=== PATIENT | male | born 2000 | race American Indian/Alaskan Native ===

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

== ENCOUNTER 2018-04-13 12:05 | Emergency (ER) | payer MEDICAID ==
[2018-04-13 12:11] VITALS: BP 142/81
[2018-04-13] MEDS ORDERED: ATROVENT IH ONE (12:16)
[2018-04-13] MEDS ORDERED: PROVENTIL IH ONE (12:16)
[2018-04-13] MEDS ORDERED: NACL 0.9% 1000 ML 1,000 ML IV ONE (12:17)
[2018-04-13] MEDS ORDERED: SOLU-Medrol IV ONE (12:17)
--- NOTE | 2018-04-13 12:19 | Emergency Department Report ---
Chief Complaint: Adult Asthma Stated Complaint: KARAN/ASTHMA Time Seen by Provider: 04/13/18 12:16 - HPI History of Present Illness: 17-year-old -[place] male presents to the emergency department with complaint of a one to 2 day history of progressively worsening shortness of breath, wheezing and dry cough that he thinks his insistent with his asthma. He has been trying to use his inhaler and nebulizer at home without any relief. He also has a history of bipolar disorder and ADHD. He has been intubated and admitted to the hospital previously for asthma. No recent travel or sick contacts at home. Denies any tobacco abuse. - ROS Review of Systems: Positive for shortness of breath, wheezing, cough Negative for fever, nausea, vomiting - Exam Vital Signs: Vital Signs 04/13/18 12:08 Temperature 97.8 F Pulse Rate 109 H Respiratory 24 Rate Blood Pressure 142/81 O2 Sat by Pulse 94 Oximetry Physical Exam: Patient has some tachypnea but no accessory muscle use. Mild tachycardia. Moderate wheezing and bronchospasm throughout the chest. MSE screening note: Focused history and physical exam performed. Due to findings the following was ordered: I have ordered for breathing treatments, IV fluid resuscitation, and Solu-Medrol to be started. He will have a portable 1 view chest x-ray. ED Disposition for MSE Condition: Stable
--- NOTE | 2018-04-13 12:21 | Emergency Department Report ---
ED Asthma HPI - General Chief Complaint: Adult Asthma Stated Complaint: KARAN/ASTHMA Time Seen by Provider: 04/13/18 12:16 Source: patient Mode of arrival: Ambulatory Limitations: No Limitations - History of Present Illness Initial Comments: This is a 17-year-old male nontoxic, well nourished in appearance, no acute signs of distress presents to the ED with c/o of acute on chronic asthma exacerbation x2 days. Patient stated has been using albuterol neb with minimal to no relief. Patient stated has a dry nonproductive cough. Patient denies any sick contact. Patient denies any recent travels, long car, recent hospital stays. Patient denies any calf pain or calf tenderness. Patient denies any chest pain, short of breath, fever, chills, nausea, vomiting, hemoptysis, numbness, tingling, headache or stiff neck. Past medical history includes asthma. MD Complaint: "asthma attack", shortness of breath, wheezing -: days(s) Asthma History: childhood onset Severity: mild Context: none known Associated Symptoms: dry cough. denies: productive cough, fever, chest pain, hemoptysis, leg edema, syncope Treatments Prior to Arrival: inhaled bronchodilator - Related Data Current Asthma Therapy: inhaled bronchodilator Home Medications Medication Instructions Recorded Confirmed Last Taken Fluticasone/Salmeterol [Advair 1 puff IH BID 01/17/13 01/17/13 Unknown Diskus 100-50 mcg] Montelukast (Nf) [Singulair] 5 mg PO QPM 01/17/13 01/17/13 Unknown Nebulizer [Airs Disposable 1 each MC 01/17/13 01/17/13 Unknown Nebulizer] Previous Rx's Medication Instructions Recorded Last Taken Type Amoxicillin [Trimox CAP] 500 mg PO Q8H #30 capsule 01/18/13 Unknown Rx Fluticasone Propionate [Flovent 50 mcg IH DAILY #1 disk.w.dev 01/29/15 Unknown Rx Diskus] Prednisone [predniSONE 5 mg (6-Day 5 mg PO .TAPER #1 tab.ds.pk 01/29/15 Unknown Rx Pack, 21 Tabs)] ALBUTEROL Inhaler (OR & NICU) 4 puff IH QID PRN #1 inha 03/13/17 Unknown Rx [ProAir HFA Inhaler] Azithromycin [Zithromax Z-FERD] 250 mg PO DAILY #4 tablet 03/13/17 Unknown Rx predniSONE [Deltasone] 40 mg PO QDAY #8 tab 03/13/17 Unknown Rx ALBUTEROL Inhaler(NF) [VENTOLIN 1 puff IH Q4-6H PRN #1 inha 04/13/18 Unknown Rx Inhaler(NF)] ALBUTEROL NEB's [Proventil 0.083% 2.5 mg IH TID PRN #1 box 04/13/18 Unknown Rx NEBS] Prednisone [predniSONE 10 mg 10 mg PO .TAPER #1 tab.ds.pk 04/13/18 Unknown Rx (6-Day Pack, 21 Tabs)] Allergies Allergy/AdvReac Type Severity Reaction Status Date / Time peach [Henry] Allergy Severe Anaphylaxis Verified 01/29/15 07:49 pollen extracts Allergy Itching Verified 01/29/15 07:56 venom-honey bee Allergy Hives Verified 01/29/15 07:56 [bee venom (honey bee)] ED Review of Systems ROS: Stated complaint: KARAN/ASTHMA Other details as noted in HPI Constitutional: denies: chills, fever Eyes: denies: eye pain, eye discharge, vision change ENT: denies: ear pain, throat pain Respiratory: cough, shortness of breath, wheezing Cardiovascular: denies: chest pain, palpitations Endocrine: no symptoms reported Gastrointestinal: denies: abdominal pain, nausea, diarrhea Genitourinary: denies: urgency, dysuria Musculoskeletal: denies: back pain, joint swelling, arthralgia Skin: denies: rash, lesions Neurological: denies: headache, weakness, paresthesias Psychiatric: denies: anxiety, depression Hematological/Lymphatic: denies: easy bleeding, easy bruising ED Past Medical Hx - Past Medical History Previous Medical History?: Yes Hx Psychiatric Treatment: Yes (Bipolar, ADHD) Hx Asthma: Yes - Surgical History Past Surgical History?: Yes Additional Surgical History: adnoids, tonsillectomy - Social History Smoking Status: Former Smoker Substance Use Type: Marijuana - Medications Home Medications: Home Medications Medication Instructions Recorded Confirmed Last Taken Type Fluticasone/Salmeterol [Advair 1 puff IH BID 01/17/13 01/17/13 Unknown History Diskus 100-50 mcg] Montelukast (Nf) [Singulair] 5 mg PO QPM 01/17/13 01/17/13 Unknown History Nebulizer [Airs Disposable 1 each MC 01/17/13 01/17/13 Unknown History Nebulizer] Amoxicillin [Trimox CAP] 500 mg PO Q8H #30 capsule 01/18/13 Unknown Rx Fluticasone Propionate [Flovent 50 mcg IH DAILY #1 disk.w.dev 01/29/15 Unknown Rx Diskus] Prednisone [predniSONE 5 mg (6-Day 5 mg PO .TAPER #1 tab.ds.pk 01/29/15 Unknown Rx Pack, 21 Tabs)] ALBUTEROL Inhaler (OR & NICU) 4 puff IH QID PRN #1 inha 03/13/17 Unknown Rx [ProAir HFA Inhaler] Azithromycin [Zithromax Z-FRED] 250 mg PO DAILY #4 tablet 03/13/17 Unknown Rx predniSONE [Deltasone] 40 mg PO QDAY #8 tab 03/13/17 Unknown Rx ALBUTEROL Inhaler(NF) [VENTOLIN 1 puff IH Q4-6H PRN #1 inha 04/13/18 Unknown Rx Inhaler(NF)] ALBUTEROL NEB's [Proventil 0.083% 2.5 mg IH TID PRN #1 box 04/13/18 Unknown Rx NEBS] Prednisone [predniSONE 10 mg 10 mg PO .TAPER #1 tab.ds.pk 04/13/18 Unknown Rx (6-Day Pack, 21 Tabs)] ED Physical Exam - General Limitations: No Limitations General appearance: alert, in no apparent distress - Head Head exam: Present: atraumatic, normocephalic - Neck Neck exam: Present: normal inspection, full ROM - Respiratory Respiratory exam: Present: wheezes (bilateral upper and lower lobes). Absent: respiratory distress, rales, rhonchi, stridor, chest wall tenderness, accessory muscle use, decreased breath sounds, prolonged expiratory - Cardiovascular Cardiovascular Exam: Present: regular rate, normal rhythm, normal heart sounds. Absent: irregular rhythm, systolic murmur, diastolic murmur, rubs, gallop - Extremities Exam Extremities exam: Present: normal inspection, full ROM, normal capillary refill - Back Exam Back exam: Present: normal inspection, full ROM - Neurological Exam Neurological exam: Present: alert, oriented X3 - Psychiatric Psychiatric exam: Present: normal affect, normal mood - Skin Skin exam: Present: warm, dry, intact, normal color. Absent: rash ED Course Vital Signs 04/13/18 04/13/18 12:08 12:22 Temperature 97.8 F Pulse Rate 109 H Pulse Rate [ 92 H Posterior Bilateral Throughout] Respiratory 24 Rate Respiratory 20 Rate [Posterior Bilateral Throughout] Blood Pressure 142/81 O2 Sat by Pulse 94 Oximetry - Reevaluation(s) Reevaluation #1: 04/13/18 13:09 Patient is speaking in full sentences with no signs of distress noted. ED Medical Decision Making - Medical Decision Making This is a 17-year-old male that presents with asthma exacerbation. Patient is stable and was examined by me. Chest x-ray has been obtained and dictated by the radiologist within normal limits. Patient is notified of the x-ray report with no questions noted by the patient. Patient did receive breathing treatment and steroids in the ED which patient the symptoms has resolved and subsided. Posttreatment and there is no wheezing upon auscultation. Patient is discharged with albuterol and prednisone. Patient was referred to Follow-up with a primary care doctor in 3-5 days or if symptoms worsen and continue return to emergency room as soon as possible. At time of discharge, the patient does not seem toxic or ill in appearance. No acute signs of distress noted. Patient agrees to discharge treatment plan of care. No further questions noted by the patient. This chart is dictated with using [employer] Critical care attestation.: If time is entered above; I have spent that time in minutes in the direct care of this critically ill patient, excluding procedure time. ED Disposition Clinical Impression: Asthma exacerbation Qualifiers: Asthma severity: mild Asthma persistence: intermittent Qualified Code(s): J45.21 - Mild intermittent asthma with (acute) exacerbation Disposition: - TO HOME OR SELFCARE Is pt being admited?: No Does the pt Need Aspirin: No Condition: Stable Instructions: Asthma (ED) Additional Instructions: Follow-up with a primary care doctor in 3-5 days or if symptoms worsen and continue return to emergency room as soon as possible. Prescriptions: ALBUTEROL Inhaler(NF) [VENTOLIN Inhaler(NF)] 1 puff IH Q4-6H PRN #1 inha PRN Reason: Wheezing ALBUTEROL NEB's [Proventil 0.083% NEBS] 2.5 mg IH TID PRN #1 box PRN Reason: Wheezing Prednisone [predniSONE 10 mg (6-Day Pack, 21 Tabs)] 10 mg PO .TAPER #1 tab.ds.pk Referrals: PRIMARY CAREMD [Primary Care Provider] - 3-5 Days JERMAN ARMAS MD [Staff Physician] - 3-5 Days [facility] [Outside] - 3-5 Days [facility] [Outside] - 3-5 Days Forms: Work/School Release Form(ED)
--- NOTE | 2018-04-13 13:31 | XRay Report ---
PORTABLE CHEST: SOB. An AP portable view of the chest demonstrates a normal cardiac contour considering the limits of this technique. The lungs are clear with no evidence of infiltrate, fluid or failure. No change compared to prior exam on March 13, 2017. IMPRESSION: Normal portable chest.
== END 2018-04-13 14:04 | disposition home or self-care (01) ==
LOC: ED 12:05
DX: J45.21 Mild intermittent asthma with (acute) exacerbation (principal); F12.90 Cannabis use, unspecified, uncomplicated; Z87.891 Personal history of nicotine dependence; Z88.8 Allergy status to other drugs, medicaments and biological substances; Z91.030 Bee allergy status
CPT/HCPCS: 71045; 94644; 96374; 99283; J2930; J7030

== ENCOUNTER 2018-12-09 22:30 | Inpatient (IN) | payer MEDICAID ==
[2018-12-09] MEDS ORDERED: DUONEB *Not for PRN Use IH ONE ×3 (22:41→23:50)
--- NOTE | 2018-12-09 22:46 | Emergency Department Report ---
ED Shortness of Breath HPI - General Chief Complaint: Dyspnea/Respdistress Stated Complaint: KARAN Time Seen by Provider: 12/09/18 22:44 Source: patient, EMS Mode of arrival: Stretcher Limitations: No Limitations - History of Present Illness Initial Comments: Patient is 18-year-old male that presents emergency room with complaints of asthma attack. Patient states his symptoms started this morning and he has taken multiple breathing treatments at home with no improvement. Patient brought in by EMS and EMS states that his on scene O2 saturation was 85%. Patient was placed on oxygen as well as given Solu-Medrol and albuterol and magnesium. Patient's oxygen saturation at this time is 87%. Patient states he's had difficulty breathing. Patient states short of breath. He states his symptoms are better with rest and worse with exertion. MD Complaint: shortness of breath, cough, "asthma attack" -: Sudden Severity: severe Consistency: constant Improves With: oxygen, rest, bronchodilators Worsens With: exertion, coughing, inspiration Known History Of: asthma Context: recent URI Associated Symptoms: fever, cough Treatments Prior to Arrival: oxygen, bronchodilator, other - Related Data Home Oxygen Therapy: No Home Medications Medication Instructions Recorded Confirmed Last Taken Fluticasone/Salmeterol [Advair 1 puff IH BID 01/17/13 01/17/13 Unknown Diskus 100-50 mcg] Montelukast (Nf) [Singulair] 5 mg PO QPM 01/17/13 01/17/13 Unknown Nebulizer [Airs Disposable 1 each MC 01/17/13 01/17/13 Unknown Nebulizer] Previous Rx's Medication Instructions Recorded Last Taken Type Amoxicillin [Trimox CAP] 500 mg PO Q8H #30 capsule 01/18/13 Unknown Rx Fluticasone Propionate [Flovent 50 mcg IH DAILY #1 disk.w.dev 01/29/15 Unknown Rx Diskus] Prednisone [predniSONE 5 mg (6-Day 5 mg PO .TAPER #1 tab.ds.pk 01/29/15 Unknown Rx Pack, 21 Tabs)] ALBUTEROL Inhaler (OR & NICU) 4 puff IH QID PRN #1 inha 03/13/17 Unknown Rx [ProAir HFA Inhaler] Azithromycin [Zithromax Z-FRED] 250 mg PO DAILY #4 tablet 03/13/17 Unknown Rx predniSONE [Deltasone] 40 mg PO QDAY #8 tab 03/13/17 Unknown Rx ALBUTEROL Inhaler(NF) [VENTOLIN 1 puff IH Q4-6H PRN #1 inha 04/13/18 Unknown Rx Inhaler(NF)] ALBUTEROL NEB's [Proventil 0.083% 2.5 mg IH TID PRN #1 box 04/13/18 Unknown Rx NEBS] Prednisone [predniSONE 10 mg 10 mg PO .TAPER #1 tab.ds.pk 04/13/18 Unknown Rx (6-Day Pack, 21 Tabs)] Allergies Allergy/AdvReac Type Severity Reaction Status Date / Time peach [[facility]] Allergy Severe Anaphylaxis Verified 01/29/15 07:49 pollen extracts Allergy Itching Verified 01/29/15 07:56 venom-honey bee Allergy Hives Verified 01/29/15 07:56 [bee venom (honey bee)] ED Review of Systems ROS: Stated complaint: KARAN Other details as noted in HPI Constitutional: chills, fever Eyes: denies: eye pain, eye discharge, vision change ENT: denies: ear pain, throat pain Respiratory: cough, shortness of breath, SOB with exertion, SOB at rest, wheezing Cardiovascular: denies: chest pain, palpitations Endocrine: no symptoms reported Gastrointestinal: denies: abdominal pain, nausea, diarrhea Genitourinary: denies: urgency, dysuria Musculoskeletal: denies: back pain, joint swelling, arthralgia Skin: denies: rash, lesions Neurological: denies: headache, weakness, paresthesias Psychiatric: denies: anxiety, depression Hematological/Lymphatic: denies: easy bleeding, easy bruising ED Past Medical Hx - Past Medical History Previous Medical History?: Yes Hx Psychiatric Treatment: Yes (Bipolar, ADHD) Hx Asthma: Yes - Surgical History Additional Surgical History: adnoids, tonsillectomy - Social History Smoking Status: Former Smoker Substance Use Type: Marijuana - Medications Home Medications: Home Medications Medication Instructions Recorded Confirmed Last Taken Type Fluticasone/Salmeterol [Advair 1 puff IH BID 01/17/13 01/17/13 Unknown History Diskus 100-50 mcg] Montelukast (Nf) [Singulair] 5 mg PO QPM 01/17/13 01/17/13 Unknown History Nebulizer [Airs Disposable 1 each MC 01/17/13 01/17/13 Unknown History Nebulizer] Amoxicillin [Trimox CAP] 500 mg PO Q8H #30 capsule 01/18/13 Unknown Rx Fluticasone Propionate [Flovent 50 mcg IH DAILY #1 disk.w.dev 01/29/15 Unknown Rx Diskus] Prednisone [predniSONE 5 mg (6-Day 5 mg PO .TAPER #1 tab.ds.pk 01/29/15 Unknown Rx Pack, 21 Tabs)] ALBUTEROL Inhaler (OR & NICU) 4 puff IH QID PRN #1 inha 03/13/17 Unknown Rx [ProAir HFA Inhaler] Azithromycin [Zithromax Z-FRED] 250 mg PO DAILY #4 tablet 03/13/17 Unknown Rx predniSONE [Deltasone] 40 mg PO QDAY #8 tab 03/13/17 Unknown Rx ALBUTEROL Inhaler(NF) [VENTOLIN 1 puff IH Q4-6H PRN #1 inha 04/13/18 Unknown Rx Inhaler(NF)] ALBUTEROL NEB's [Proventil 0.083% 2.5 mg IH TID PRN #1 box 04/13/18 Unknown Rx NEBS] Prednisone [predniSONE 10 mg 10 mg PO .TAPER #1 tab.ds.pk 04/13/18 Unknown Rx (6-Day Pack, 21 Tabs)] ED Physical Exam - General Limitations: No Limitations General appearance: alert, in distress - Head Head exam: Present: atraumatic, normocephalic - Eye Eye exam: Present: normal appearance - ENT ENT exam: Present: mucous membranes dry - Neck Neck exam: Present: normal inspection - Respiratory Respiratory exam: Present: respiratory distress, wheezes, accessory muscle use, decreased breath sounds - Cardiovascular Cardiovascular Exam: Present: regular rate, normal rhythm. Absent: systolic murmur, diastolic murmur, rubs, gallop - GI/Abdominal GI/Abdominal exam: Present: soft, normal bowel sounds. Absent: distended, tenderness - Rectal Rectal exam: Present: deferred - Extremities Exam Extremities exam: Present: normal inspection - Back Exam Back exam: Present: normal inspection - Neurological Exam Neurological exam: Present: alert, oriented X3 - Psychiatric Psychiatric exam: Present: normal affect, normal mood - Skin Skin exam: Present: warm, dry, intact, normal color. Absent: rash ED Course Vital Signs 12/09/18 12/09/18 12/09/18 22:34 22:45 22:55 Temperature Pulse Rate 103 H 90 Pulse Rate [ 101 H Throughout] Respiratory 20 Rate Respiratory 24 Rate [ Throughout] Blood Pressure 120/75 O2 Sat by Pulse 98 Oximetry 12/09/18 12/09/18 12/09/18 22:58 23:00 23:05 Temperature 98.8 F Pulse Rate 105 H 103 H 100 H Pulse Rate [ Throughout] Respiratory 18 25 H 30 H Rate Respiratory Rate [ Throughout] Blood Pressure 118/82 133/82 133/82 O2 Sat by Pulse 91 90 94 Oximetry 12/09/18 12/09/18 12/09/18 23:08 23:15 23:30 Temperature Pulse Rate 102 H 104 H 92 H Pulse Rate [ Throughout] Respiratory 27 H 26 H 26 H Rate Respiratory Rate [ Throughout] Blood Pressure 133/82 131/85 126/81 O2 Sat by Pulse 94 91 95 Oximetry 12/09/18 12/10/18 12/10/18 23:45 00:00 00:05 Temperature Pulse Rate 89 89 114 H Pulse Rate [ Throughout] Respiratory 29 H 34 H 22 Rate Respiratory Rate [ Throughout] Blood Pressure 136/85 132/81 141/89 O2 Sat by Pulse 95 94 92 Oximetry 12/10/18 12/10/18 12/10/18 00:10 00:15 00:31 Temperature Pulse Rate 101 H 117 H Pulse Rate [ 102 H Throughout] Respiratory 31 H 10 L Rate Respiratory 40 H Rate [ Throughout] Blood Pressure 141/89 182/121 O2 Sat by Pulse 89 93 Oximetry 12/10/18 12/10/18 00:45 01:00 Temperature Pulse Rate 101 H 91 H Pulse Rate [ Throughout] Respiratory 16 16 Rate Respiratory Rate [ Throughout] Blood Pressure 124/67 99/40 O2 Sat by Pulse 94 Oximetry - Reevaluation(s) Reevaluation #1: Initial evaluation done. Patient found to have increased work of breathing, hypoxia and decreased breath sounds and wheezing. Patient will be placed on BiPAP and given a DuoNeb. 12/09/18 22:40 Reevaluation #2: Patient's worked breathing has decreased. Patient's oxygenation has improved. Patient is currently 93%. 12/09/18 23:13 Reevaluation #3: Patient's work of breathing has improved. Patient's oxygen saturation better. Patient states he feels better. Patient currently on BiPAP 12/09/18 23:43 Reevaluation #4: Patient became acutely ill. Patient worsening. Patient states she's getting tired. Patient's work to breathe is increased. Patient's tachypnea. Patient is hypoxic again. Patient intubated. 12/10/18 00:10 Reevaluation #5: Patient started on propofol drip initially but maxed out. Patient requiring more sedation. Patient started on fentanyl drip. Patient's chest x-ray done and shows ET tube in good position. 12/10/18 00:51 - Consultations Consultation #1: Hospitalist consult for admission. Hospitalist to admit patient. 12/10/18 00:51 - Intubation Time Out Performed: Yes Sedative: Etomidate Paralytic: Succinylcholine Laryngoscope: fiberoptic video scope Size: 4 Assist Device Used: fiberoptic device ET Tube Size: 7.5 Tube Secured Depth (cm): 24 Tube Secured Location: teeth Tube Placement Confirmation: visualized tube passing t, equal breath sounds bilat, no breath sounds over epi, confirmation by capnometr Patient Tolerated Procedure: well, no complications Intubation Complications: none ED Medical Decision Making - Lab Data Result diagrams: 12/09/18 23:10 12/09/18 23:10 - EKG Data -: EKG Interpreted by Mo EKG shows normal: sinus rhythm, axis, intervals, QRS complexes, ST-T waves Rate: normal - Radiology Data Radiology results: report reviewed, image reviewed CHEST 1 VIEW 12:42 AM INDICATION / CLINICAL INFORMATION: Intubation and NG tube placement. COMPARISON: Yesterday. FINDINGS: SUPPORT DEVICES: There is a new endotracheal tube with the tip approximately 3.5 cm above the geeta. There is a nasogastric tube with the tip overlying the gastric body and the proximal sidehole near the gastroesophageal junction. HEART / MEDIASTINUM: Unchanged. LUNGS / PLEURA: There is new left lower lobe atelectasis/consolidation in the retrocardiac region. Pleuroparenchymal opacity in the right lower hemithorax medially is stable. No pneumothorax. ADDITIONAL FINDINGS: No significant additional findings. IMPRESSION: 1. Endotracheal tube in good position. The nasogastric tube needs to be advanced further into the stomach. 2. New left lower lobe atelectasis/consolidation. Pleuroparenchymal opacity in the right lower lung is stable. CHEST 1 VIEW 10:55 PM INDICATION / CLINICAL INFORMATION: Dyspnea. COMPARISON: 04/13/2018. FINDINGS: SUPPORT DEVICES: None. HEART / MEDIASTINUM: The heart size and pulmonary vasculature are normal. LUNGS / PLEURA: There is localized opacity in the right lower hemithorax medially behind the right heart. The right heart border is slightly indistinct. There is significant volume loss. There is a small right pleural effusion. These findings are new. The left lung is clear. No pneumothorax. ADDITIONAL FINDINGS: No significant additional findings. IMPRESSION: Right lower lobe and probable right middle lobe atelectasis/postobstructive pneumonia. An endobronchial lesion/mucous plug should be considered. Aspiration is possible. - Medical Decision Making Patient is a 18-year-old male points asthmatic breathing. Patient to be in status asthmaticus. Patient given Solu-Medrol, magnesium and albuterol by EMS prior to arrival. Patient placed on BiPAP and given dual. Patient initially improved however patient acutely worsened and the patient required intubation. Patient given RSI medications of etomidate and sucks. Patient intubated without difficulty. See procedure note. Patient placed on Caroline for sedation. Patient also had a Cullen placed. Patient NG placed. Patient's x-ray shows pneumonia. Patient given antibiotics early in the ER course. Patient's labs unremarkable. Patient admitted to the hospitalist service and into the ICU. - Differential Diagnosis respiratory failure. Status asthmaticus. Hypoxia. Pneumonia. Critical Care Time: Yes Critical care attestation.: If time is entered above; I have spent that time in minutes in the direct care of this critically ill patient, excluding procedure time. Critical Care Time: 45 minutes ED Disposition Clinical Impression: Hypoxia, SOB (shortness of breath), Respiratory distress Status asthmaticus Qualifiers: Asthma severity: severe Asthma persistence: persistent Qualified Code(s): J45.52 - Severe persistent asthma with status asthmaticus Fever Qualifiers: Fever type: unspecified Qualified Code(s): R50.9 - Fever, unspecified Respiratory failure Qualifiers: Chronicity: acute Respiratory failure complication: hypoxia Qualified Code(s): J96.01 - Acute respiratory failure with hypoxia Pneumonia Qualifiers: Pneumonia type: due to unspecified organism Laterality: right Lung location: u nspecified part of lung Qualified Code(s): J18.9 - Pneumonia, unspecified o rganism Disposition: DC-09 OP ADMIT IP TO THIS HOSP Is pt being admited?: Yes Does the pt Need Aspirin: No Condition: Critical Time of Disposition: 00:52
[2018-12-09] MEDS ORDERED: MAXIPIME/NS 2 GM/100 ML 2 GM/100 ML BAG IV ONE (23:12)
[2018-12-09 23:20] LABS: Basophils % (Auto) 0.2 % (0.0-1.8); Eosinophils # (Auto) 0.5 K/mm3 (0.0-0.4); Eosinophils % (Auto) 4.7 % (0.0-4.3); Hematocrit 43.2 % (35.5-45.6); Hemoglobin 14.7 gm/dl (11.8-15.2); Lymphocytes # (Auto) 1.2 K/mm3 (1.2-5.4); Lymphocytes % (Auto) 11.6 % (13.4-35.0); Mean Corpuscular HGB Conc 34 % (32-34); Mean Corpuscular Volume 83 fl (84-94); Monocytes # (Auto) 0.6 K/mm3 (0.0-0.8); Monocytes % (Auto) 6.1 % (0.0-7.3); Platelet Count 201 K/mm3 (140-440); Red Blood Count 5.22 M/mm3 (3.65-5.03); Red Cell Distribution Width 13.9 % (13.2-15.2)
--- NOTE | 2018-12-09 23:21 | XRay Report ---
CHEST 1 VIEW 10:55 PM INDICATION / CLINICAL INFORMATION: Dyspnea. COMPARISON: 04/13/2018. FINDINGS: SUPPORT DEVICES: None. HEART / MEDIASTINUM: The heart size and pulmonary vasculature are normal. LUNGS / PLEURA: There is localized opacity in the right lower hemithorax medially behind the right he art. The right heart border is slightly indistinct. There is significant volume loss. There is a smal l right pleural effusion. These findings are new. The left lung is clear. No pneumothorax. ADDITIONAL FINDINGS: No significant additional findings. IMPRESSION: Right lower lobe and probable right middle lobe atelectasis/postobstructive pneumonia. An endobronchial lesion/mucous plug should be considered. Aspiration is possible. Signer Name: Wilian Dunbar MD Signed: 12/09/2018 11:16 PM Workstation Name: [id number]
[2018-12-09 23:45] LABS: Alanine Aminotransferase 13 units/L (7-56); Albumin 4.3 g/dL (3.9-5); BUN/Creatinine Ratio 13; Blood Urea Nitrogen 9 mg/dL (9-20); Calcium 8.7 mg/dL (8.4-10.2); Hemolysis Index 17
[2018-12-10] MEDS ORDERED: AMIDATE IV ONE ×2 (00:32→00:35)
[2018-12-10] MEDS ORDERED: QUELICIN IV ONE (00:32)
[2018-12-10] MEDS ORDERED: DIPRIVAN 10 MG/ML 1,000 MG/100 ML BOTTLE IV ONE (00:34)
[2018-12-10] MEDS ORDERED: VASELINE LIP THERAPY TP ONE (00:35)
[2018-12-10] MEDS ORDERED: QUELICIN ONE (00:35)
[2018-12-10] MEDS: DIPRIVAN 10 MG/ML 1,000 MG/100 ML BOTTLE IV SCH ×3 (00:41→21:12)
[2018-12-10] MEDS ORDERED: fentaNYL DRIP Premix 2,000 MCG/100 ML BAG IV ONE (00:43)
[2018-12-10] MEDS: fentaNYL DRIP Premix 2,000 MCG/100 ML BAG IV SCH ×3 (00:50→21:13)
--- NOTE | 2018-12-10 01:09 | XRay Report ---
CHEST 1 VIEW 12:42 AM INDICATION / CLINICAL INFORMATION: Intubation and NG tube placement. COMPARISON: Yesterday. FINDINGS: SUPPORT DEVICES: There is a new endotracheal tube with the tip approximately 3.5 cm above the geeta. There is a nasogastric tube with the tip overlying the gastric body and the proximal sidehole near t he gastroesophageal junction. HEART / MEDIASTINUM: Unchanged. LUNGS / PLEURA: There is new left lower lobe atelectasis/consolidation in the retrocardiac region. Pl europarenchymal opacity in the right lower hemithorax medially is stable. No pneumothorax. ADDITIONAL FINDINGS: No significant additional findings. IMPRESSION: 1. Endotracheal tube in good position. The nasogastric tube needs to be advanced further into the sto mach. 2. New left lower lobe atelectasis/consolidation. Pleuroparenchymal opacity in the right lower lung i s stable. Signer Name: Wilian Dunbar MD Signed: 12/10/2018 1:05 AM Workstation Name: [id number]
[2018-12-10] MEDS ORDERED: TYLENOL PO PRN (01:34)
[2018-12-10] MEDS ORDERED: ZOFRAN IV PRN (01:34)
[2018-12-10] MEDS ORDERED: SODIUM CHLORIDE FLUSH SYRINGE 10 ML IV PRN (01:34)
--- NOTE | 2018-12-10 01:40 | History and Physical Report ---
History of Present Illness Date of examination: 12/10/18 History of present illness: 18 with a history of asthma, bipolar, ADHD similar to complaints of shortness of breath 2 days per the girlfriend at bedside. He also has a cough productive of green phlegm. The emergency room he was found to be started distress started on BiPAP, he improved but then later became hypoxic and was subsequently intubated. A review of system is unobtainable PAST MEDICAL HISTORY:asthma, bipolar, ADHD PAST SURGICAL HISTORY: Tonsils, adenoids FAMILY HISTORY: Unknown SOCIAL HISTORY: + tobacco, marijuana, no alcohol Medications and Allergies Allergies Allergy/AdvReac Type Severity Reaction Status Date / Time peach [[facility]] Allergy Severe Anaphylaxis Verified 01/29/15 07:49 pollen extracts Allergy Itching Verified 01/29/15 07:56 venom-honey bee Allergy Hives Verified 01/29/15 07:56 [bee venom (honey bee)] Home Medications Medication Instructions Recorded Confirmed Last Taken Type Fluticasone/Salmeterol [Advair 1 puff IH BID 01/17/13 01/17/13 Unknown History Diskus 100-50 mcg] Nebulizer [Airs Disposable 1 each MC PRN 01/17/13 01/17/13 Unknown History Nebulizer] ALBUTEROL NEB's [Proventil 0.083% 2.5 mg IH TID PRN #1 box 04/13/18 Unknown Rx NEBS] Active Meds: Active Medications Acetaminophen (Tylenol) 650 mg PO Q4H PRN PRN Reason: Pain MILD(1-3)/Fever >100.5/[place] Albuterol/Ipratropium (Duoneb *Not For Prn Use*) 1 ampul IH Q6HRT KELLE Enoxaparin Sodium (Lovenox) 30 mg SUB-Q QDAY KELLE Propofol (Diprivan 10 Mg/Ml) 1,000 mg in 100 mls @ 1.701 mls/hr IV TITR KELLE; Protocol Last Admin: 12/10/18 00:41 Dose: 5 mcg/kg/min, 1.701 mls/hr Documented by: Sodium Chloride (Nacl 0.9% 1000 Ml) 1,000 mls @ 75 mls/hr IV DIRECT KELLE Piperacillin Sod/Tazobactam Sod (Zosyn/Ns 4.5gm/100ml) 4.5 gm in 100 mls @ 200 mls/hr IV Q8HR KELLE; Protocol Methylprednisolone Sodium Succinate (Solu-Medrol) 125 mg IV Q6HR KELLE Ondansetron HCl (Zofran) 4 mg IV Q8H PRN PRN Reason: Nausea And Vomiting Sodium Chloride (Sodium Chloride Flush Syringe 10 Ml) 10 ml IV BID KELLE Sodium Chloride (Sodium Chloride Flush Syringe 10 Ml) 10 ml IV PRN PRN PRN Reason: LINE FLUSH Exam - Physical Exam Narrative exam: General Apperance: The patient lying in bed no acute distress, intubated HEENT: Normocephalic, atraumatic. Pupils equally round and reactive to light, unable to do extraocular movement intact, and no sclericterus or JVD or thyromegaly or nodule. Neck supple, no carotid bruit, mucous membranes moist, ET tube in place Heart: S1-S2, regular is rhythm Lungs: wheezing bilaterally, breathing comfortable Abdomen: Positive bowel sounds, soft, nondistended, no organomegaly Extremities: No edema cyanosis clubbing Skin: no rash, nodule, warm and dry Neuro: sedated - Constitutional Vitals: Temp Pulse Resp BP Pulse Ox 98.8 F 91 H 16 99/40 94 12/09/18 22:58 12/10/18 01:00 12/10/18 01:00 12/10/18 01:00 12/10/18 00:45 Results - Labs CBC & Chem 7: 12/09/18 23:10 12/09/18 23:10 Labs: Abnormal lab results 12/09/18 12/09/18 Range/Units 23:10 23:10 RBC 5.22 H (3.65-5.03) M/mm3 MCV 83 L (84-94) fl Lymph % (Auto) 11.6 L (13.4-35.0) % Eos % (Auto) 4.7 H (0.0-4.3) % Eos # 0.5 H (0.0-0.4) K/mm3 Seg Neutrophils % 77.4 H (40.0-70.0) % Seg Neutrophils # 7.9 H (1.8-7.7) K/mm3 Creatinine 0.7 L (0.8-1.5) mg/dL - Imaging and Cardiology EKG: image reviewed Chest x-ray: image reviewed Assessment and Plan Assessment Acute respiratory failure Acute asthma exacerbation with bronchitis Possible aspiration pneumonia ADHD Bipolar Plan Admit to medicine Start High-dose steroids, breathing treatments, Zosyn Consult critical care, DVT prophylaxis Continue sedation, discontinue the Rocephin, continue fentanyl start IV fluid
[2018-12-10] MEDS: ZOSYN/NS 4.5GM/100ML 4.5 GM/100 ML VIAL IV SCH ×3 (02:01→19:11)
[2018-12-10] MEDS: NACL 0.9% 1000 ML 1,000 ML IV SCH ×3 (02:01→21:23)
[2018-12-10 02:14] LABS: ABG Base Excess -3.9 mmol/L (-2.0-3.0); ABG HCO3 23.2 mmol/L (20.0-26.0); ABG Methemoglobin 0.7 % (0.0-1.5); ABG Oxygen Saturation 99.1 % (95.0-99.0); ABG PCO2 49.9 mm Hg; ABG PH 7.285 pH Units (7.350-7.450); ABG PO2 195.2 mm Hg (80.0-90.0)
[2018-12-10] MEDS: DUONEB *Not for PRN Use IH SCH ×4 (02:52→19:48)
[2018-12-10 03:02] LABS: Bilirubin,Urine NEG (Negative); Blood,Urine NEG (Negative); Color,Urine Yellow (Yellow); Mucus,Urine FEW /HPF; Protein,Urine <15 mg/dL mg/dL (Negative)
[2018-12-10] MEDS ORDERED: SOLU-Medrol ONE (04:08)
[2018-12-10] MEDS: SOLU-Medrol IV SCH ×4 (04:12→19:10)
[2018-12-10 05:18] LABS: Hematocrit 41.2 % (35.5-45.6); Mean Corpuscular HGB Conc 34 % (32-34); Mean Corpuscular Volume 83 fl (84-94); Platelet Count 192 K/mm3 (140-440); Red Blood Count 4.98 M/mm3 (3.65-5.03)
[2018-12-10 05:24] LABS: Amphetamine Screen,Urine PRESUMPTIVE NEGATIVE; Benzodiazepines Screen,Urine PRESUMPTIVE NEGATIVE; Cocaine Screen,Urine PRESUMPTIVE NEGATIVE; Methadone Screen,Urine PRESUMPTIVE NEGATIVE; Opiate Screen,Urine PRESUMPTIVE NEGATIVE
[2018-12-10 05:35] LABS: ABG Base Excess -4.3 mmol/L (-2.0-3.0); ABG HCO3 23.1 mmol/L (20.0-26.0); ABG Methemoglobin 0.6 % (0.0-1.5); ABG Oxygen Saturation 95.1 % (95.0-99.0); ABG PCO2 51.7 mm Hg; ABG PH 7.269 pH Units (7.350-7.450); ABG PO2 84.1 mm Hg (80.0-90.0)
[2018-12-10 05:41] LABS: BUN/Creatinine Ratio 11; Blood Urea Nitrogen 10 mg/dL (9-20); Calcium 8.1 mg/dL (8.4-10.2); Hemolysis Index 12
[2018-12-10 05:50] LABS: Cannabinoid Screen,Urine PRESUMPTIVE POSITIVE
[2018-12-10] MEDS ORDERED: VASELINE LIP THERAPY TP PRN (05:59)
[2018-12-10 07:43] LABS: Basophils % (Manual) 0 % (0.0-1.8); Eosinophils % (Manual) 0 % (0.0-4.3); Total Cells Counted 100
[2018-12-10 07:44] LABS: Platelet Estimate Consistent w Auto; RBC Morphology Normal
[2018-12-10] MEDS: LOVENOX SUB-Q SCH (09:23)
[2018-12-10] MEDS: SODIUM CHLORIDE FLUSH SYRINGE 10 ML IV SCH ×2 (09:24→21:28)
--- NOTE | 2018-12-10 09:32 | Progress Note ---
Assessment and Plan Assessment and plan: Acute respiratory failure s/p Intubation done in the ED Status Asthmaticus with Acute asthma exacerbation with bronchitis THC use disorder Respiratory acidosis Possible aspiration pneumonia ADHD Bipolar Plan Continue supportive care Aspiration precautions Continue Emperic abx Monitor Cultures Restriants for safety. Start High-dose steroids, breathing treatments, Zosyn Consult critical care, DVT prophylaxis Continue sedation, discontinue the Rocephin, continue fentanyl start IV fluid additional 35mins cct History Interval history: Patient seen and examined, Fiancee at bedside, Remains intubated and sedated. Hospitalist Physical - Physical exam Narrative exam: VITAL SIGNS: Reviewed. GENERAL: The patient appears normally developed, Vital signs as documented. HEAD: No signs of head trauma. EYES: Pupils are equal. Extraocular motions intact. EARS: Hearing grossly intact. MOUTH: Oropharynx is normal. NECK: No adenopathy, no JVD. CHEST: Chest with clear breath sounds bilaterally. No wheezes, rales, or rhonchi. CARDIAC: Regular rate and rhythm. S1 and S2, without murmurs, gallops, or rubs. VASCULAR: No Edema. Peripheral pulses normal and equal in all extremities. ABDOMEN: Soft, non tender and non distended. No rebound or guarding, and no masses palpated. Bowel Sounds normal. MUSCULOSKELETAL: Good range of motion of all major joints. Extremities without clubbing, cyanosis or edema. NEUROLOGIC EXAM: Alert and oriented x 3 No focal sensory or strength deficits. Speech normal. Follows commands. PSYCHIATRIC: Mood normal. SKIN: detial exam as documented in skin assessment - Constitutional Vitals: Temp Pulse Resp BP Pulse Ox 97.1 F L 76 24 107/58 91 12/10/18 08:00 12/10/18 08:14 12/10/18 08:14 12/10/18 08:00 12/10/18 08:00 Results - Labs CBC & Chem 7: 12/10/18 04:56 12/10/18 04:56 Labs: Laboratory Last Values WBC 12.2 K/mm3 (4.5-11.0) H 12/10/18 04:56 RBC 4.98 M/mm3 (3.65-5.03) 12/10/18 04:56 Hgb 14.0 gm/dl (11.8-15.2) 12/10/18 04:56 Hct 41.2 % (35.5-45.6) 12/10/18 04:56 MCV 83 fl (84-94) L 12/10/18 04:56 MCH 28 pg (28-32) 12/10/18 04:56 MCHC 34 % (32-34) 12/10/18 04:56 RDW 14.0 % (13.2-15.2) 12/10/18 04:56 Plt Count 192 K/mm3 (140-440) 12/10/18 04:56 Lymph % (Auto) 11.6 % (13.4-35.0) L 12/09/18 23:10 Wilson % (Auto) 6.1 % (0.0-7.3) 12/09/18 23:10 Eos % (Auto) 4.7 % (0.0-4.3) H 12/09/18 23:10 Baso % (Auto) 0.2 % (0.0-1.8) 12/09/18 23:10 Lymph # 1.2 K/mm3 (1.2-5.4) 12/09/18 23:10 Wilson # 0.6 K/mm3 (0.0-0.8) 12/09/18 23:10 Eos # 0.5 K/mm3 (0.0-0.4) H 12/09/18 23:10 Baso # 0.0 K/mm3 (0.0-0.1) 12/09/18 23:10 Add Manual Diff Complete 12/10/18 04:56 Total Counted 100 12/10/18 04:56 Seg Neutrophils % 77.4 % (40.0-70.0) H 12/09/18 23:10 Seg Neuts % (Manual) 97.0 % (40.0-70.0) H 12/10/18 04:56 0 % 12/10/18 04:56 2.0 % (13.4-35.0) L 12/10/18 04:56 Reactive Lymphs % (Man) 0 % 12/10/18 04:56 1.0 % (0.0-7.3) 12/10/18 04:56 0 % (0.0-4.3) 12/10/18 04:56 0 % (0.0-1.8) 12/10/18 04:56 0 % 12/10/18 04:56 0 % 12/10/18 04:56 0 % 12/10/18 04:56 0 % 12/10/18 04:56 Nucleated RBC % Not Reportable 12/10/18 04:56 Seg Neutrophils # 7.9 K/mm3 (1.8-7.7) H 12/09/18 23:10 Seg Neutrophils # Man 11.8 K/mm3 (1.8-7.7) H 12/10/18 04:56 Band Neutrophils # 0.0 K/mm3 12/10/18 04:56 0.2 K/mm3 (1.2-5.4) L 12/10/18 04:56 Abs React Lymphs (Man) 0.0 K/mm3 12/10/18 04:56 0.1 K/mm3 (0.0-0.8) 12/10/18 04:56 0.0 K/mm3 (0.0-0.4) 12/10/18 04:56 0.0 K/mm3 (0.0-0.1) 12/10/18 04:56 0.0 K/mm3 12/10/18 04:56 0.0 K/mm3 12/10/18 04:56 0.0 K/mm3 12/10/18 04:56 Blast Cells # 0.0 K/mm3 12/10/18 04:56 WBC Morphology Not Reportable 12/10/18 04:56 Hypersegmented Neuts Not Reportable 12/10/18 04:56 Hyposegmented Neuts Not Reportable 12/10/18 04:56 Hypogranular Neuts Not Reportable 12/10/18 04:56 Not Reportable 12/10/18 04:56 Not Reportable 12/10/18 04:56 Not Reportable 12/10/18 04:56 Not Reportable 12/10/18 04:56 Not Reportable 12/10/18 04:56 Not Reportable 12/10/18 04:56 Consistent w auto 12/10/18 04:56 Not Reportable 12/10/18 04:56 Plt Clumps, EDTA Not Reportable 12/10/18 04:56 Not Reportable 12/10/18 04:56 Not Reportable 12/10/18 04:56 Not Reportable 12/10/18 04:56 Plt Morphology Comment Not Reportable 12/10/18 04:56 RBC Morphology Normal 12/10/18 04:56 Dimorphic RBCs Not Reportable 12/10/18 04:56 Not Reportable 12/10/18 04:56 Not Reportable 12/10/18 04:56 Not Reportable 12/10/18 04:56 Not Reportable 12/10/18 04:56 Not Reportable 12/10/18 04:56 Not Reportable 12/10/18 04:56 Not Reportable 12/10/18 04:56 Not Reportable 12/10/18 04:56 Not Reportable 12/10/18 04:56 Not Reportable 12/10/18 04:56 Not Reportable 12/10/18 04:56 Not Reportable 12/10/18 04:56 Not Reportable 12/10/18 04:56 Not Reportable 12/10/18 04:56 Not Reportable 12/10/18 04:56 Not Reportable 12/10/18 04:56 Not Reportable 12/10/18 04:56 Not Reportable 12/10/18 04:56 Not Reportable 12/10/18 04:56 Acanthocytes (Spur) Not Reportable 12/10/18 04:56 Rouleaux Not Reportable 12/10/18 04:56 Not Reportable 12/10/18 04:56 Not Reportable 12/10/18 04:56 Not Reportable 12/10/18 04:56 Not Reportable 12/10/18 04:56 Hem Pathologist Commnt No 12/10/18 04:56 ABG pH 7.285 pH Units (7.350-7.450) L 12/10/18 Unknown ABG pCO2 49.9 mm Hg 12/10/18 Unknown ABG pO2 195.2 mm Hg (80.0-90.0) H 12/10/18 Unknown ABG HCO3 23.2 mmol/L (20.0-26.0) 12/10/18 Unknown ABG O2 Saturation 99.1 % (95.0-99.0) H 12/10/18 Unknown ABG O2 Content 20.5 (0.0-44) 12/10/18 Unknown ABG Base Excess -3.9 mmol/L (-2.0-3.0) L 12/10/18 Unknown ABG Hemoglobin 14.7 gm/dl (14.0-18.0) 12/10/18 Unknown ABG Carboxyhemoglobin 1.1 % (0.0-5.0) 12/10/18 Unknown ABG Methemoglobin 0.7 % (0.0-1.5) 12/10/18 Unknown 97.4 % (95.0-99.0) 12/10/18 Unknown 100 % 12/10/18 Unknown Sodium 140 mmol/L (137-145) 12/10/18 04:56 Potassium 4.9 mmol/L (3.6-5.0) D 12/10/18 04:56 Chloride 106.4 mmol/L (98-107) 12/10/18 04:56 Carbon Dioxide 20 mmol/L (22-30) L 12/10/18 04:56 19 mmol/L 12/10/18 04:56 BUN 10 mg/dL (9-20) 12/10/18 04:56 0.9 mg/dL (0.8-1.5) 12/10/18 04:56 Estimated GFR > 60 ml/min 12/10/18 04:56 11 % 12/10/18 04:56 Glucose 132 mg/dL (75-100) H 12/10/18 04:56 Lactic Acid 1.80 mmol/L (0.7-2.0) 12/09/18 23:13 Calcium 8.1 mg/dL (8.4-10.2) L 12/10/18 04:56 1.00 mg/dL (0.1-1.2) 12/09/18 23:10 AST 21 units/L (5-40) 12/09/18 23:10 ALT 13 units/L (7-56) 12/09/18 23:10 94 units/L (35-129) 12/09/18 23:10 7.6 g/dL (6.3-8.2) 12/09/18 23:10 4.3 g/dL (3.9-5) 12/09/18 23:10 1.3 % 12/09/18 23:10 Yellow (Yellow) 12/09/18 02:19 Clear (Clear) 12/09/18 02:19 7.0 (5.0-7.0) 12/09/18 02:19 Ur Specific [place] 1.028 (1.003-1.030) 12/09/18 02:19 <15 mg/dl mg/dL (Negative) 12/09/18 02:19 Neg mg/dL (Negative) 12/09/18 02:19 Neg mg/dL (Negative) 12/09/18 02:19 Neg (Negative) 12/09/18 02:19 Neg (Negative) 12/09/18 02:19 Neg (Negative) 12/09/18 02:19 4.0 mg/dL (<2.0) 12/09/18 02:19 Ur Leukocyte Esterase Neg (Negative) 12/09/18 02:19 2.0 /HPF (0.0-6.0) 12/09/18 02:19 1.0 /HPF (0.0-6.0) 12/09/18 02:19 Few /HPF 12/09/18 02:19 Presumptive negative 12/09/18 22:45 Presumptive negative 12/09/18 22:45 Ur Barbiturates Screen Presumptive negative 12/09/18 22:45 Ur Phencyclidine Scrn Presumptive negative 12/09/18 22:45 Ur Amphetamines Screen Presumptive negative 12/09/18 22:45 U Benzodiazepines Scrn Presumptive negative 12/09/18 22:45 Presumptive negative 12/09/18 22:45 U Marijuana (THC) Screen Presumptive positive 12/09/18 22:45 Disclamer 12/09/18 22:45 Active Medications - Current Medications Current Medications: Generic Name Dose Route Start Last Admin Trade Name Freq PRN Reason Stop Dose Admin Acetaminophen 650 mg 12/10/18 01:34 Tylenol PO Q4H PRN Pain MILD(1-3)/Fever >100.5/[place]END Albuterol/Ipratropium 1 ampul 12/10/18 02:00 12/10/18 08:14 Duoneb *Not For Prn Use* IH 1 ampul Q6HRT KELLE Administration Enoxaparin Sodium 40 mg 12/10/18 10:00 12/10/18 09:23 Lovenox SUB-Q 40 mg QDAY KELLE Administration Hydrophilic Ointment 1 applic 12/10/18 05:59 Vaseline Lip Therapy TP DIRECT PRN Dry Lips Propofol 1,000 mg in 100 mls @ 1.701 mls/hr 12/10/18 01:00 12/10/18 09:25 Diprivan 10 Mg/Ml IV 20 mcg/kg/min TITR KELLE 6.804 mls/hr Administration Protocol 5 MCG/KG/MIN Sodium Chloride 1,000 mls @ 75 mls/hr 12/10/18 02:00 12/10/18 05:17 Nacl 0.9% 1000 Ml IV 75 mls/hr DIRECT KELLE Administration Piperacillin Sod/Tazobactam Sod 4.5 gm in 100 mls @ 200 mls/hr 12/10/18 02:00 12/10/18 02:01 Zosyn/Ns 4.5gm/100ml IV 200 mls/hr Q8H KELLE Administration Protocol Fentanyl Citrate 2,000 mcg in 100 mls @ 2.835 mls/hr 12/10/18 02:00 12/10/18 09:09 Fentanyl Drip Premix IV 2 mcg/kg/hr TITR KELLE 5.67 mls/hr Titration Protocol 1 MCG/KG/HR Methylprednisolone Sodium Succinate 125 mg 12/10/18 04:00 12/10/18 09:23 Solu-Medrol IV 125 mg Q6H KELLE Administration Ondansetron HCl 4 mg 12/10/18 01:34 Zofran IV Q8H PRN Nausea And Vomiting Sodium Chloride 10 ml 12/10/18 10:00 12/10/18 09:24 Sodium Chloride Flush Syringe 10 Ml IV 10 ml BID KELLE Administration Sodium Chloride 10 ml 12/10/18 01:34 Sodium Chloride Flush Syringe 10 Ml IV PRN PRN LINE FLUSH
[2018-12-10 09:42] LABS: ABG Base Excess -3.4 mmol/L (-2.0-3.0); ABG HCO3 22.8 mmol/L (20.0-26.0); ABG Methemoglobin 0.6 % (0.0-1.5); ABG Oxygen Saturation 88.3 % (95.0-99.0); ABG PCO2 45.6 mm Hg; ABG PH 7.318 pH Units (7.350-7.450); ABG PO2 58.8 mm Hg (80.0-90.0)
--- NOTE | 2018-12-10 11:02 | Consultation ---
History of Present Illness Consult date: 12/10/18 Requesting physician: SHY ERNST Reason for consult: asthma, other (Acute hypoxemic respiratory failure) History of present illness: PULMONARY/CCM CONSULT NOTE (full dictation # [id number]) Please see dictated notes for full details Medications and Allergies Allergies Allergy/AdvReac Type Severity Reaction Status Date / Time peach [[place]] Allergy Severe Anaphylaxis Verified 01/29/15 07:49 pollen extracts Allergy Itching Verified 01/29/15 07:56 venom-honey bee Allergy Hives Verified 01/29/15 07:56 [bee venom (honey bee)] Home Medications Medication Instructions Recorded Confirmed Last Taken Type Fluticasone/Salmeterol [Advair 1 puff IH BID 01/17/13 12/10/18 Unknown History Diskus 100-50 mcg] Nebulizer [Airs Disposable 1 each MC PRN 01/17/13 12/10/18 Unknown History Nebulizer] ALBUTEROL NEB's [Proventil 0.083% 2.5 mg IH TID PRN #1 box 04/13/18 12/10/18 Unknown Rx NEBS] Active Meds: Active Medications Acetaminophen (Tylenol) 650 mg PO Q4H PRN PRN Reason: Pain MILD(1-3)/Fever >100.5/[place] Albuterol/Ipratropium (Duoneb *Not For Prn Use*) 1 ampul IH Q6HRT [facility] Last Admin: 12/10/18 08:14 Dose: 1 ampul Documented by: Enoxaparin Sodium (Lovenox) 40 mg SUB-Q QDAY [facility] Last Admin: 12/10/18 09:23 Dose: 40 mg Documented by: Hydrophilic Ointment (Vaseline Lip Therapy) 1 applic TP DIRECT PRN PRN Reason: Dry Lips Propofol (Diprivan 10 Mg/Ml) 1,000 mg in 100 mls @ 1.701 mls/hr IV TITR [facility]; Protocol Last Admin: 12/10/18 09:25 Dose: 20 mcg/kg/min, 6.804 mls/hr Documented by: Sodium Chloride (Nacl 0.9% 1000 Ml) 1,000 mls @ 75 mls/hr IV DIRECT KELLE Last Admin: 12/10/18 05:17 Dose: 75 mls/hr Documented by: Piperacillin Sod/Tazobactam Sod (Zosyn/Ns 4.5gm/100ml) 4.5 gm in 100 mls @ 200 mls/hr IV Q8H KELLE; Protocol Last Admin: 12/10/18 09:37 Dose: 200 mls/hr Documented by: Fentanyl Citrate (Fentanyl Drip Premix) 2,000 mcg in 100 mls @ 2.835 mls/hr IV TITR KELLE; Protocol Last Titration: 12/10/18 09:09 Dose: 2 mcg/kg/hr, 5.67 mls/hr Documented by: Methylprednisolone Sodium Succinate (Solu-Medrol) 125 mg IV Q6H KELLE Last Admin: 12/10/18 09:23 Dose: 125 mg Documented by: Ondansetron HCl (Zofran) 4 mg IV Q8H PRN PRN Reason: Nausea And Vomiting Sodium Chloride (Sodium Chloride Flush Syringe 10 Ml) 10 ml IV BID [facility] Last Admin: 12/10/18 09:24 Dose: 10 ml Documented by: Sodium Chloride (Sodium Chloride Flush Syringe 10 Ml) 10 ml IV PRN PRN PRN Reason: LINE FLUSH Physical Examination Vital signs: Vital Signs Pulse 103 H 12/09/18 22:34 Results - Laboratory Findings CBC and BMP: 12/10/18 04:56 12/10/18 04:56 ABG ABG pH 7.285 pH Units (7.350-7.450) L 12/10/18 Unknown ABG pCO2 49.9 mm Hg 12/10/18 Unknown ABG pO2 195.2 mm Hg (80.0-90.0) H 12/10/18 Unknown ABG O2 Saturation 99.1 % (95.0-99.0) H 12/10/18 Unknown Abnormal lab findings: Abnormal Labs 12/09/18 12/09/18 12/10/18 23:10 23:10 04:56 WBC 12.2 H RBC 5.22 H MCV 83 L 83 L Lymph % (Auto) 11.6 L Eos % (Auto) 4.7 H Eos # 0.5 H Seg Neutrophils % 77.4 H Seg Neuts % (Manual) 97.0 H Lymphocytes % (Manual) 2.0 L Seg Neutrophils # 7.9 H Seg Neutrophils # Man 11.8 H Lymphocytes # (Manual) 0.2 L ABG pH ABG pO2 ABG O2 Saturation ABG Base Excess ABG Hemoglobin Oxyhemoglobin Carbon Dioxide Creatinine 0.7 L Glucose POC Glucose Calcium 12/10/18 12/10/18 12/10/18 04:56 05:10 08:30 WBC RBC MCV Lymph % (Auto) Eos % (Auto) Eos # Seg Neutrophils % Seg Neuts % (Manual) Lymphocytes % (Manual) Seg Neutrophils # Seg Neutrophils # Man Lymphocytes # (Manual) ABG pH 7.269 L 7.318 L ABG pO2 58.8 L ABG O2 Saturation 88.3 L ABG Base Excess -4.3 L -3.4 L ABG Hemoglobin 13.8 L 13.0 L Oxyhemoglobin 93.6 L 86.8 L Carbon Dioxide 20 L Creatinine Glucose 132 H POC Glucose Calcium 8.1 L 12/10/18 12/10/18 11:04 Unknown WBC RBC MCV Lymph % (Auto) Eos % (Auto) Eos # Seg Neutrophils % Seg Neuts % (Manual) Lymphocytes % (Manual) Seg Neutrophils # Seg Neutrophils # Man Lymphocytes # (Manual) ABG pH 7.285 L ABG pO2 195.2 H ABG O2 Saturation 99.1 H ABG Base Excess -3.9 L ABG Hemoglobin Oxyhemoglobin Carbon Dioxide Creatinine Glucose POC Glucose 146 H Calcium
[2018-12-10] MEDS ORDERED: SODIUM BICARBONATE FEEDTUBE PRN (12:50)
[2018-12-10] MEDS ORDERED: SIMPLE SYRUP FEEDTUBE PRN ×2 (12:50)
[2018-12-10] MEDS ORDERED: PANCREAZE DR 10,500 UNIT FEEDTUBE PRN (13:30)
[2018-12-10] MEDS: PEPCID PO SCH (14:00)
[2018-12-10] MEDS: BROVANA NEBU IH SCH ×2 (15:07→19:48)
--- NOTE | 2018-12-10 15:35 | XRay Report ---
ABDOMEN 1 VIEW(S) INDICATION / CLINICAL INFORMATION: Orogastric tube placement. COMPARISON: None available. FINDINGS: TUBES / LINES: The distal tip of the orogastric tube is coiled in the fundus of the stomach. BOWEL GAS PATTERN: No significant abnormality. FREE AIR / EXTRALUMINAL GAS: None seen. ADDITIONAL FINDINGS: No significant additional findings. IMPRESSION: The OG tube terminates in the fundus of the stomach. Unremarkable abdomen. Signer Name: Yahir Stern Jr, MD Signed: 12/10/2018 3:31 PM Workstation Name: [id number]
[2018-12-10 17:44] LABS: ABG Base Excess -1.5 mmol/L (-2.0-3.0); ABG HCO3 24.9 mmol/L (20.0-26.0); ABG Methemoglobin 0.5 % (0.0-1.5); ABG Oxygen Saturation 94.7 % (95.0-99.0); ABG PCO2 48.7 mm Hg; ABG PH 7.327 pH Units (7.350-7.450); ABG PO2 74.8 mm Hg (80.0-90.0)
[2018-12-10] MEDS: PULMICORT IH SCH (19:48)
--- NOTE | 2018-12-10 23:19 | Consultation ---
PULMONARY CRITICAL CARE CONSULTATION CONSULTING PHYSICIAN: Catherine Lugo M.D. REASON FOR CONSULTATION: Acute hypoxemic respiratory failure, on mechanical ventilatory support, acute asthma exacerbation. CHIEF COMPLAINT AND HISTORY OF PRESENT ILLNESS: The patient is a 18-year-old -[place] male with past medical history significant amongst other things for a diagnosis of asthma, but also bipolar disorder, came into the Emergency Room complaining of 2 days of shortness of breath according to his fiancee who was at the bedside. He has also had a cough productive of greenish phlegm. In the ER, he was found to be in significant respiratory distress, initially started on BiPAP. He improved, but then became hypoxemic. He required a semi-elective intubation. We are asked to assist with management. When I stopped by to see him, he was resting in bed. He was sedated to about RASS scale of 0 to -1. He did respond appropriately. He denied any chest pains. According to his girlfriend, he is a tobacco abuser, almost a pack a day user. She does admit that he was running out of his bronchodilators at home and was trying to see if he could use half a puff as against the 2 puffs q.i.d. he had been prescribed. He also lost his nebulizer machine recently. She denied any sick contacts. This really is as much the history of presentation as I have. PAST MEDICAL HISTORY: Asthma, bipolar disorder, attention deficit hyperactivity disorder. PAST SURGICAL HISTORY: He has had tonsillectomies and adenoidectomies. MEDICATIONS: He was on at the time I stopped by to see him included the following: Tylenol 650 mg p.o. q.4 hours p.r.n. mild pain or fevers, DuoNeb nebulizer treatments nebulized q.6 hours, Lovenox 40 mg subcutaneous daily, fentanyl drip was going at 2 mcg/kg per hour, Solu-Medrol 125 mg IV q.6 hours, Zofran 4 mg IV q.8 hours p.r.n. nausea and vomiting, Zosyn was going at 4.5 grams IV q.8 hours, Propofol drip was going at 20 mcg per minute. ALLERGIES: PEACH and POLLEN EXTRACT as well as VENOM HONEY BEE. Nature of this allergy is unknown. DIET: Well-built gentleman. His fiancee denies acute weight loss or gain in the preceding few weeks to months. FAMILY AND SOCIAL HISTORY: Lives in the community. His home situation is a little bit tenuous right now. He just got asked to leave his sister's house. So, it looks like they are in transition. He does have about a 5-pack-year tobacco smoking history. Girlfriend denies illicit drug use or abuse. Family history is otherwise unknown. REVIEW OF SYSTEMS: Unobtainable secondary to the patient's medical and mental condition. Since he has been here, no gross hematochezia or melena, no gross hematuria, no hematemesis, no hemoptysis, no palpitations. No new onset seizures. No new onset focal weakness. No new rashes on his body. No bloody tracheal secretions. Review of systems is otherwise unobtainable. PHYSICAL EXAMINATION: VITAL SIGNS: On examination at presentation in the Emergency Room, afebrile, temperature 98.8 degrees Fahrenheit, pulse was 103, respiratory rate was 24, blood pressure 120/75 that was described as having accessory muscle use, O2 sats were 98%, inspired oxygen concentration at that time was not recorded. When I stopped by to see him, his O2 sats were 99% that was on the assist control mode of ventilation as PRVC AC, tidal volumes set at 400 and a rate of 24, PEEP of 6 and 45% FiO2 at that time. GENERAL: Well-built -[place] male. Normocephalic, atraumatic. Resting peacefully in the bed without significant patient ventilator dyssynchrony. HEAD, EYES, EARS, NOSE AND THROAT: He is anicteric. No conjunctival erythema. Oropharynx was moist. Endotracheal tube was taped at the lips around 23 cm. No gross jugular venous distention, no thyromegaly. Grossly, no palpable lymph nodes in the supraclavicular or submandibular lymph node chains. LUNGS: Auscultation of both lung jerry revealed bilateral expiratory wheezes. No obvious dullness to percussion. HEART: Heart sounds 1 and 2 are heard. They were regular in rate and rhythm at the time of my evaluation without overt rubs or murmurs. ABDOMEN: Soft, full, bowel sounds are positive, nontender, no palpable hepatosplenomegaly. EXTREMITIES: Without overt digital clubbing, no cyanosis, no pedal edema. Pedal pulses are 2+ bilaterally. NEUROLOGIC: Pupils are equal, round, about 2 mm, sluggishly reactive to light. Extraocular muscle movements are intact. He moves all 4 extremities spontaneously. Power is 5/5. SKIN: Normal turgor without overt cellulitis or rash. LABORATORY DATA: From my review are as follows: Admission white cell count 10,200, hemoglobin 14.7, hematocrit 43.2, platelet count 201. No band forms reported. Arterial blood gas initially was 7.27 at presentation with a pH of 7.27, pCO2 of 52, pO2 of 84 and that was on 50% FiO2. Serum sodium at presentation was 140, potassium 3.6, chloride 104, bicarbonate 22, BUN 9, creatinine 0.7, glucose was 97. Liver function test was within normal limits. Urinalysis was unremarkable. Urine drug screen was presumptive positive for marijuana. His white count is up to 12,200 today. Arterial blood gas showed a pH of 7.29, pCO2 of 50, pO2 of 195 on the above-mentioned ventilator settings; however, the FiO2 was 100% at that time and the rate was 20. Lactic acid level was within normal limits. Blood cultures 2 sets, no growth to date. Chest x-ray has been reviewed. Some suggestion of right middle lobe collapse/atelectasis, otherwise no acute process. ASSESSMENT: 1. Acute hypoxemic respiratory failure, on mechanical ventilatory support. 2. Acute asthma exacerbation. 3. Likely mucus plugging with partial right middle lobe collapse. 4. Tobacco use disorder. 5. History of bipolar disorder. 6. Attention deficit hyperactivity disorder. 7. Leukocytosis. 8. Element of medication noncompliance. PLAN: I do not think he needs Zosyn coverage at this time. This should be nothing more than an acute asthma exacerbation, probably precipitated by poor medication compliance and inadequate control of medications. We will go ahead and reduce the sat rate back to 20, but increase the tidal volumes to about 500. His peak pressure is in decent range. We will repeat the arterial blood gas a little later just to ensure he has adequate ventilation. We will reduce sedation with daily sedation assessment trials. We will target RASS scale of 0 to -1. Ventilator-associated pneumonia bundle has been instituted. He has been cultured including a tracheal aspirate that will be ordered if it has not already been sent. I will discontinue the Zosyn and watch him clinically off antibiotics; however, I will get a CRP level to aid clinical decision making and trend as necessary. I will reduce the systemic steroid dose to 60 mg IV q.6 hours, but also add long-acting bronchodilators in this gentleman as well as inhaled corticosteroids until he is off the ventilator. He is appropriately on DVT prophylaxis. He will be placed on GI prophylaxis, especially with him on positive pressure ventilation. Flu and pneumonia vaccination will be addressed per protocol. I have counseled him against tobacco abuse and we will continue to activities counselor him, especially when he is extubated. The care plan has been discussed with his fiancee in the room as well as the patient. He is critically ill, on life-sustaining interventions including mechanical ventilatory support, at high risk of decompensation including the risk of . At this time, I have spent about 40 minutes of critical care time without overlap and excluding any procedural time that may be necessary. JOB# [id number] SOPHIE/JONATHAN
[2018-12-11] MEDS: SOLU-Medrol IV SCH ×4 (00:14→17:59)
[2018-12-11] MEDS: DUONEB *Not for PRN Use IH SCH ×4 (01:57→20:43)
[2018-12-11 03:59] LABS: Hematocrit 36.9 % (35.5-45.6); Hemoglobin 12.9 gm/dl (11.8-15.2); Mean Corpuscular HGB Conc 35 % (32-34); Mean Corpuscular Volume 81 fl (84-94); Platelet Count 189 K/mm3 (140-440); Red Blood Count 4.57 M/mm3 (3.65-5.03)
[2018-12-11 04:23] LABS: BUN/Creatinine Ratio 18; Blood Urea Nitrogen 14 mg/dL (9-20); Calcium 8.4 mg/dL (8.4-10.2); Hemolysis Index 6
[2018-12-11 06:19] LABS: ABG Base Excess 0.1 mmol/L (-2.0-3.0); ABG HCO3 25.3 mmol/L (20.0-26.0); ABG PH 7.388 pH Units (7.350-7.450); ABG PO2 71.8 mm Hg (80.0-90.0)
[2018-12-11 06:27] LABS: ABG Methemoglobin 0.5 % (0.0-1.5); ABG Oxygen Saturation 95.1 % (95.0-99.0)
[2018-12-11] MEDS: PULMICORT IH SCH ×2 (07:26→20:43)
[2018-12-11] MEDS: BROVANA NEBU IH SCH ×2 (07:27→20:43)
--- NOTE | 2018-12-11 08:04 | Progress Note ---
Assessment and Plan Assessment and plan: 18 with a history of asthma, Anxiety disorder, bipolar, ADHD similar to complaints of shortness of breath 2 days per the girlfriend at bedside. He also has a cough productive of green phlegm. The emergency room he was found to be started distress started on BiPAP, he improved but then later became hypoxic and was subsequently intubated. A review of system is unobtainable. * Per girlfriend at bedside, patient ran out of his Inhaler and recently lost his nebulizer machine. * Patient had a prior intubation about a year ago for Asthma exacerbation CXR: Right lower lobe and probable right middle lobe atelectasis/postobstructive pneumonia. An endobronchial lesion/mucous plug should be considered. Aspiration is possible. Acute respiratory failure s/p Intubation done in the ED Status Asthmaticus with Acute asthma exacerbation with bronchitis THC use disorder' Possible Mucus Plugging Tobacco use disorder Respiratory acidosis Possible Aspiration pneumonia ADHD Bipolar Anxiety disorder Leukocytosis Plan Continue supportive care Aspiration precautions Management per Critical care team Antibiotics discontinued and will monitor LABA and MARNIE Renal ultrasound, Patient with over 700cc of urine via striaght cath last night and still no urine outpatient this am, renal function remains stable. Taper steroids Monitor Cultures Restraints for safety. Consult critical care, DVT prophylaxis Continue sedation,, continue fentanyl start IV fluid Discussed with FAMILY AT BEDSIDE additional 35mins cct History Interval history: Patient seen and examined, Barbe at bedside, Remains intubated and sedated. Although awakes to verbal stimuli. Nurse reports suspicion of urinary retention Hospitalist Physical - Physical exam Narrative exam: VITAL SIGNS: Reviewed. GENERAL: The patient appears normally developed, Vital signs as documented. HEAD: No signs of head trauma. EYES: Pupils are equal. Extraocular motions intact. EARS: Hearing grossly intact. MOUTH: Oropharynx is normal. NECK: No adenopathy, no JVD. CHEST: Chest with WHEEZING breath sounds bilaterally. No rales, or rhonchi. CARDIAC: Regular rate and rhythm. S1 and S2, without murmurs, gallops, or rubs. VASCULAR: No Edema. Peripheral pulses normal and equal in all extremities. ABDOMEN: Soft, non tender and non distended. No rebound or guarding, and no masses palpated. Bowel Sounds normal. MUSCULOSKELETAL: Good range of motion of all major joints. Extremities without clubbing, cyanosis or edema. NEUROLOGIC EXAM: Alert and oriented x 3 No focal sensory or strength deficits. Speech normal. Follows commands. PSYCHIATRIC: Mood normal. SKIN: detial exam as documented in skin assessment - Constitutional Vitals: Temp Pulse Resp BP Pulse Ox 99.4 F 87 20 109/49 92 12/11/18 03:06 12/11/18 05:23 12/11/18 05:23 12/11/18 05:21 12/11/18 05:23 Results - Labs CBC & Chem 7: 12/11/18 03:43 12/11/18 03:43 Labs: Laboratory Last Values WBC 13.7 K/mm3 (4.5-11.0) H 12/11/18 03:43 RBC 4.57 M/mm3 (3.65-5.03) 12/11/18 03:43 Hgb 12.9 gm/dl (11.8-15.2) 12/11/18 03:43 Hct 36.9 % (35.5-45.6) 12/11/18 03:43 MCV 81 fl (84-94) L 12/11/18 03:43 MCH 28 pg (28-32) 12/11/18 03:43 MCHC 35 % (32-34) H 12/11/18 03:43 RDW 14.0 % (13.2-15.2) 12/11/18 03:43 Plt Count 189 K/mm3 (140-440) 12/11/18 03:43 Lymph % (Auto) 11.6 % (13.4-35.0) L 12/09/18 23:10 [place] % (Auto) 6.1 % (0.0-7.3) 12/09/18 23:10 Eos % (Auto) 4.7 % (0.0-4.3) H 12/09/18 23:10 Baso % (Auto) 0.2 % (0.0-1.8) 12/09/18 23:10 Lymph # 1.2 K/mm3 (1.2-5.4) 12/09/18 23:10 [place] # 0.6 K/mm3 (0.0-0.8) 12/09/18 23:10 Eos # 0.5 K/mm3 (0.0-0.4) H 12/09/18 23:10 Baso # 0.0 K/mm3 (0.0-0.1) 12/09/18 23:10 Add Manual Diff Complete 12/10/18 04:56 Total Counted 100 12/10/18 04:56 Seg Neutrophils % 77.4 % (40.0-70.0) H 12/09/18 23:10 Seg Neuts % (Manual) 97.0 % (40.0-70.0) H 12/10/18 04:56 0 % 12/10/18 04:56 2.0 % (13.4-35.0) L 12/10/18 04:56 Reactive Lymphs % (Man) 0 % 12/10/18 04:56 1.0 % (0.0-7.3) 12/10/18 04:56 0 % (0.0-4.3) 12/10/18 04:56 0 % (0.0-1.8) 12/10/18 04:56 0 % 12/10/18 04:56 0 % 12/10/18 04:56 0 % 12/10/18 04:56 0 % 12/10/18 04:56 Nucleated RBC % Not Reportable 12/10/18 04:56 Seg Neutrophils # 7.9 K/mm3 (1.8-7.7) H 12/09/18 23:10 Seg Neutrophils # Man 11.8 K/mm3 (1.8-7.7) H 12/10/18 04:56 Band Neutrophils # 0.0 K/mm3 12/10/18 04:56 0.2 K/mm3 (1.2-5.4) L 12/10/18 04:56 Abs React Lymphs (Man) 0.0 K/mm3 12/10/18 04:56 0.1 K/mm3 (0.0-0.8) 12/10/18 04:56 0.0 K/mm3 (0.0-0.4) 12/10/18 04:56 0.0 K/mm3 (0.0-0.1) 12/10/18 04:56 0.0 K/mm3 12/10/18 04:56 0.0 K/mm3 12/10/18 04:56 0.0 K/mm3 12/10/18 04:56 Blast Cells # 0.0 K/mm3 12/10/18 04:56 WBC Morphology Not Reportable 12/10/18 04:56 Hypersegmented Neuts Not Reportable 12/10/18 04:56 Hyposegmented Neuts Not Reportable 12/10/18 04:56 Hypogranular Neuts Not Reportable 12/10/18 04:56 Not Reportable 12/10/18 04:56 Not Reportable 12/10/18 04:56 Not Reportable 12/10/18 04:56 Not Reportable 12/10/18 04:56 Not Reportable 12/10/18 04:56 Not Reportable 12/10/18 04:56 Consistent w auto 12/10/18 04:56 Not Reportable 12/10/18 04:56 Plt Clumps, EDTA Not Reportable 12/10/18 04:56 Not Reportable 12/10/18 04:56 Not Reportable 12/10/18 04:56 Not Reportable 12/10/18 04:56 Plt Morphology Comment Not Reportable 12/10/18 04:56 RBC Morphology Normal 12/10/18 04:56 Dimorphic RBCs Not Reportable 12/10/18 04:56 Not Reportable 12/10/18 04:56 Not Reportable 12/10/18 04:56 Not Reportable 12/10/18 04:56 Not Reportable 12/10/18 04:56 Not Reportable 12/10/18 04:56 Not Reportable 12/10/18 04:56 Not Reportable 12/10/18 04:56 Not Reportable 12/10/18 04:56 Not Reportable 12/10/18 04:56 Not Reportable 12/10/18 04:56 Not Reportable 12/10/18 04:56 Not Reportable 12/10/18 04:56 Not Reportable 12/10/18 04:56 Not Reportable 12/10/18 04:56 Not Reportable 12/10/18 04:56 Not Reportable 12/10/18 04:56 Not Reportable 12/10/18 04:56 Not Reportable 12/10/18 04:56 Not Reportable 12/10/18 04:56 Acanthocytes (Spur) Not Reportable 12/10/18 04:56 Rouleaux Not Reportable 12/10/18 04:56 Not Reportable 12/10/18 04:56 Not Reportable 12/10/18 04:56 Not Reportable 12/10/18 04:56 Not Reportable 12/10/18 04:56 Hem Pathologist Commnt No 12/10/18 04:56 POC ABG pH 7.325 (7.35-7.45) L 12/10/18 17:22 ABG pH 7.388 pH Units (7.350-7.450) 12/11/18 05:04 POC ABG pCO2 47.4 (35-45) H 12/10/18 17:22 ABG pCO2 43.0 mm Hg 12/11/18 05:04 POC ABG pO2 79 (80-105) L 12/10/18 17:22 ABG pO2 71.8 mm Hg (80.0-90.0) L 12/11/18 05:04 POC ABG HCO3 24.7 (22-26 mml/L) 12/10/18 17:22 ABG HCO3 25.3 mmol/L (20.0-26.0) 12/11/18 05:04 POC ABG Total CO2 26 (23-27mmol/L) 12/10/18 17:22 POC ABG O2 Sat 94 12/10/18 17:22 ABG O2 Saturation 95.1 % (95.0-99.0) 12/11/18 05:04 ABG O2 Content 19.8 (0.0-44) 12/11/18 05:04 POC ABG Base Excess -1 ((-2) - (+3)mmol/L) 12/10/18 17:22 ABG Base Excess 0.1 mmol/L (-2.0-3.0) 12/11/18 05:04 ABG Hemoglobin 11.9 gm/dl (14.0-18.0) L 12/11/18 05:04 ABG Carboxyhemoglobin 1.0 % (0.0-5.0) 12/11/18 05:04 ABG Methemoglobin 0.5 % (0.0-1.5) 12/11/18 05:04 93.7 % (95.0-99.0) L 12/11/18 05:04 55 % 12/11/18 05:04 Sodium 140 mmol/L (137-145) 12/11/18 03:43 Potassium 4.5 mmol/L (3.6-5.0) 12/11/18 03:43 Chloride 104.0 mmol/L (98-107) 12/11/18 03:43 Carbon Dioxide 24 mmol/L (22-30) 12/11/18 03:43 17 mmol/L 12/11/18 03:43 BUN 14 mg/dL (9-20) 12/11/18 03:43 0.8 mg/dL (0.8-1.5) 12/11/18 03:43 Estimated GFR > 60 ml/min 12/11/18 03:43 18 % 12/11/18 03:43 Glucose 153 mg/dL (75-100) H 12/11/18 03:43 POC Glucose 146 (70-105) H 12/10/18 11:04 Lactic Acid 1.80 mmol/L (0.7-2.0) 12/09/18 23:13 Calcium 8.4 mg/dL (8.4-10.2) 12/11/18 03:43 1.00 mg/dL (0.1-1.2) 12/09/18 23:10 AST 21 units/L (5-40) 12/09/18 23:10 ALT 13 units/L (7-56) 12/09/18 23:10 94 units/L (35-129) 12/09/18 23:10 1.30 mg/dL (0.00-1.30) 12/10/18 12:16 7.6 g/dL (6.3-8.2) 12/09/18 23:10 4.3 g/dL (3.9-5) 12/09/18 23:10 1.3 % 12/09/18 23:10 Yellow (Yellow) 12/09/18 02:19 Clear (Clear) 12/09/18 02:19 7.0 (5.0-7.0) 12/09/18 02:19 Ur Specific [place] 1.028 (1.003-1.030) 12/09/18 02:19 <15 mg/dl mg/dL (Negative) 12/09/18 02:19 Neg mg/dL (Negative) 12/09/18 02:19 Neg mg/dL (Negative) 12/09/18 02:19 Neg (Negative) 08/22/19 02:19 Neg (Negative) 12/09/18 02:19 Neg (Negative) 12/09/18 02:19 4.0 mg/dL (<2.0) 12/09/18 02:19 Ur Leukocyte Esterase Neg (Negative) 12/09/18 02:19 2.0 /HPF (0.0-6.0) 12/09/18 02:19 1.0 /HPF (0.0-6.0) 12/09/18 02:19 Few /HPF 12/09/18 02:19 Presumptive negative 12/09/18 22:45 Presumptive negative 12/09/18 22:45 Ur Barbiturates Screen Presumptive negative 12/09/18 22:45 Ur Phencyclidine Scrn Presumptive negative 12/09/18 22:45 Ur Amphetamines Screen Presumptive negative 12/09/18 22:45 U Benzodiazepines Scrn Presumptive negative 12/09/18 22:45 Presumptive negative 12/09/18 22:45 U Marijuana (THC) Screen Presumptive positive 12/09/18 22:45 Disclamer 12/09/18 22:45 Active Medications - Current Medications Current Medications: Generic Name Dose Route Start Last Admin Trade Name Freq PRN Reason Stop Dose Admin Acetaminophen 650 mg 12/10/18 01:34 Tylenol PO Q4H PRN Pain MILD(1-3)/Fever >100.5/[place] Albuterol/Ipratropium 1 ampul 12/10/18 02:00 12/11/18 07:26 Duoneb *Not For Prn Use* IH 1 ampul Q6HRT KELLE Administration Lipase/Protease/Amylase 1 each 12/10/18 13:30 Pancredarren [place] 10,500 Unit FEEDTUBE PRN PRN For Clogged Feeding Tube Arformoterol Tartrate 15 mcg 12/10/18 13:30 12/11/18 07:27 Brovana Nebu IH 15 mcg Q12HRT KELLE Administration Budesonide 0.5 mg 12/10/18 20:00 12/11/18 07:26 Pulmicort IH 0.5 mg Q12HRT KELLE Administration Enoxaparin Sodium 40 mg 12/10/18 10:00 12/10/18 09:23 Lovenox SUB-Q 40 mg QDAY KELLE Administration Famotidine 20 mg 12/10/18 14:00 12/10/18 14:00 Pepcid PO 20 mg QDAY KELLE Administration Hydrophilic Ointment 1 applic 12/10/18 05:59 Vaseline Lip Therapy TP DIRECT PRN Dry Lips Propofol 1,000 mg in 100 mls @ 1.701 mls/hr 12/10/18 01:00 12/10/18 21:12 Diprivan 10 Mg/Ml IV 25 mcg/kg/min TITR KELLE 8.505 mls/hr Administration Protocol 5 MCG/KG/MIN Sodium Chloride 1,000 mls @ 75 mls/hr 12/10/18 02:00 12/10/18 21:23 Nacl 0.9% 1000 Ml IV 75 mls/hr DIRECT KELLE Administration Fentanyl Citrate 2,000 mcg in 100 mls @ 2.835 mls/hr 12/10/18 02:00 12/10/18 21:13 Fentanyl Drip Premix IV 2 mcg/kg/hr TITR KELLE 5.67 mls/hr Administration Protocol 1 MCG/KG/HR Methylprednisolone Sodium Succinate 60 mg 12/10/18 13:30 12/11/18 00:14 Solu-Medrol IV 60 mg Q6HR KELLE Administration Ondansetron HCl 4 mg 12/10/18 01:34 Zofran IV Q8H PRN Nausea And Vomiting Simple Syrup 15 ml 12/10/18 12:50 Simple Syrup FEEDTUBE PRN PRN Hypoglycemia Simple Syrup 30 ml 12/10/18 12:50 Simple Syrup FEEDTUBE PRN PRN Hypoglycemia Sodium Bicarbonate 325 mg 12/10/18 12:50 Sodium Bicarbonate FEEDTUBE PRN PRN For Clogged Feeding Tube Sodium Chloride 10 ml 12/10/18 10:00 12/10/18 21:28 Sodium Chloride Flush Syringe 10 Ml IV 10 ml BID KELLE Administration Sodium Chloride 10 ml 12/10/18 01:34 Sodium Chloride Flush Syringe 10 Ml IV PRN PRN LINE FLUSH Nutrition/Malnutrition Assess - Dietary Evaluation Nutrition/Malnutrition Findings: Nutrition Notes Start: 12/10/18 11:30 Freq: Status: Active Protocol: Document 12/10/18 11:30 LM (Rec: 12/10/18 11:54 LM [id number]) Nutrition Notes Need for Assessment generated from: equipment operator,MST Initial or Follow up Assessment Other Pertinent Diagnosis Asthma, bipolar disorder, ARF, peach allergy Current Diet NPO Labs/Tests BG 132 Pertinent Medications Propofol providing 45 kcal Solumedrol Height 5 ft 7 in Weight 61 kg [place] Body Weight (kg) 67.27 BMI 21.0 Intake Prior to Admission Excellent Weight Status Appropriate Subjective/Other Information RN screen for MST. Pt on vent. Per girlfriend pt had a very good appetite at home and stated pt wants to eat. Girlfriend was unaware of pt's UBW but denied any wt changes . Burn Absent Trauma Absent #1 Nutrition Diagnosis Inadequate oral intake Etiology Mechanical vent As Evidenced by Signs and Symptoms Pt NPO Is patient on ventilator? Yes Is Patient Ambulatory and/or Out of Bed No REE-([facility]-confined to bed) [phone] Calculation Used for Recommendations [facility] Additional Notes Protein: 73-122g (1.2-2g/kg) Fluids: 1ml/kcal Nutrition Intervention Change Diet Order: TF Nutrition Support: Jevity 1.2 at 65 ml/hr Flush 100ml q4hr Kcal 1,872 Protein (gm) 87 Fluid (mL) 1,259 Goal #1 TF start Anticipated Discharge Needs: Regular diet Follow-Up By: 12/13/18 Additional Comments F/U for TF start or diet advancement
--- NOTE | 2018-12-11 09:40 | Progress Note ---
Assessment and Plan Acute respiratory failure s/p Intubation done in the ED Status Asthmaticus with Acute asthma exacerbation with bronchitis THC use disorder' Possible Mucus Plugging Tobacco use disorder Respiratory acidosis Possible Aspiration pneumonia ADHD Bipolar Anxiety disorder Leukocytosis -VAP bundle addressed -SAT and SBT this morning -CXR, has subcutaneous emphysema clinically -Accucheck with glycemic control, target blood glucose <180mg/dL -Enteric nutrition -Once extubated, smoking and polysubstance abuse counselling -VTE prophylaxis -Stress ulcer prophylaxis -Steroid taper -Bronchodilators -Follow up cultures -Aspiration precautions, HOB >40 -Bladder scan, if any urinary retention, straight cath. CONDITION: CRITICAL PROGNOSIS: FAIR CODE STATUS: FULL CODE SBT today, get weaning parameters, if acceptable [facility]. Discussed with RT, RN The high probability of a clinically significant, sudden or life-threatening deterioration of the [RESPIRATORY] system(s) required my full and direct attention, intervention and personal management. The aggregate critical care time was [30] minutes without overlap. Time includes spent on; [x] Data Review and interpretation [x] Patient assessment and monitoring of vital signs [x] Documentation [x] Medication orders and management Subjective Date of service: 12/11/18 Interval history: Patient is seen today for: Acute respiratory failure on MVS ;Status Asthmaticus with Acute asthma exacerbation with bronchitis Seen and examined at bedside; 24hour events reviewed; nursing and respiratory care staff consulted; no adverse overnight events reported to me; Awake and alert, no fevers, no chest pain, no vomiting no diarrhea. Objective - Exam Narrative Exam: VITAL SIGNS: Reviewed. GENERAL: The patient appears normally developed, Vital signs as documented. Orally intubated ETT 7.5, 23 cm at the lip No patient-ventilator dys-synchrony HEAD: No signs of head trauma. EYES: Pupils are equal. Extraocular motions intact. EARS: Hearing grossly intact. MOUTH: Oropharynx is normal. NECK: No adenopathy, no JVD. Subcutaneous emphysema rigth and left supraclavicular fossa CHEST: Decreased AE bilaterally, occ wheeze No rales, or rhonchi. CARDIAC: Regular rate and rhythm. S1 and S2, without murmurs, gallops, or rubs. VASCULAR: No Edema. Peripheral pulses normal and equal in all extremities. ABDOMEN: Soft, non tender and non distended. No rebound or guarding, and no masses palpated. Bowel Sounds normal. MUSCULOSKELETAL: Good range of motion of all major joints. Extremities without clubbing, cyanosis or edema. NEUROLOGIC EXAM: Alert and awake No focal sensory or strength deficits. Follows commands. Vital Signs - 12hr 12/10/18 12/10/18 12/10/18 21:41 21:50 22:00 Temperature Pulse Rate 99 H 98 H 95 H Pulse Rate [ Throughout] Respiratory 19 20 20 Rate Respiratory Rate [ Throughout] Blood Pressure 116/41 116/41 114/42 O2 Sat by Pulse 92 92 88 Oximetry 12/10/18 12/10/18 12/10/18 22:11 22:21 22:30 Temperature Pulse Rate 96 H 98 H 97 H Pulse Rate [ Throughout] Respiratory 19 20 20 Rate Respiratory Rate [ Throughout] Blood Pressure 114/42 114/42 109/38 O2 Sat by Pulse 92 92 86 Oximetry 12/10/18 12/10/18 12/10/18 22:41 22:51 23:00 Temperature Pulse Rate 96 H 92 H Pulse Rate [ Throughout] Respiratory 19 20 Rate Respiratory Rate [ Throughout] Blood Pressure 109/38 109/38 110/43 O2 Sat by Pulse 92 94 87 Oximetry 12/10/18 12/10/18 12/10/18 23:11 23:12 23:21 Temperature 99.9 F H Pulse Rate 93 H 91 H Pulse Rate [ Throughout] Respiratory 20 20 Rate Respiratory Rate [ Throughout] Blood Pressure 109/38 109/38 O2 Sat by Pulse 93 91 Oximetry 12/10/18 12/10/18 12/10/18 23:23 23:30 23:41 Temperature Pulse Rate 93 H 87 93 H Pulse Rate [ Throughout] Respiratory 20 20 20 Rate Respiratory Rate [ Throughout] Blood Pressure 109/38 112/37 112/37 O2 Sat by Pulse 91 87 90 Oximetry 12/10/18 12/11/18 12/11/18 23:51 00:00 00:03 Temperature Pulse Rate 90 88 90 Pulse Rate [ Throughout] Respiratory 20 20 Rate Respiratory Rate [ Throughout] Blood Pressure 112/37 104/40 104/40 O2 Sat by Pulse 89 86 92 Oximetry 12/11/18 12/11/18 12/11/18 00:11 00:21 00:30 Temperature Pulse Rate 88 88 86 Pulse Rate [ Throughout] Respiratory 20 21 20 Rate Respiratory Rate [ Throughout] Blood Pressure 104/40 104/40 105/39 O2 Sat by Pulse 92 92 88 Oximetry 12/11/18 12/11/18 12/11/18 00:41 00:51 01:00 Temperature Pulse Rate 83 84 82 Pulse Rate [ Throughout] Respiratory 19 20 20 Rate Respiratory Rate [ Throughout] Blood Pressure 112/37 112/37 106/41 O2 Sat by Pulse 89 90 87 Oximetry 12/11/18 12/11/18 12/11/18 01:11 01:21 01:30 Temperature Pulse Rate 82 81 79 Pulse Rate [ Throughout] Respiratory 20 20 20 Rate Respiratory Rate [ Throughout] Blood Pressure 106/41 106/41 103/38 O2 Sat by Pulse 92 91 86 Oximetry 12/11/18 12/11/18 12/11/18 01:41 01:51 01:59 Temperature Pulse Rate 81 89 Pulse Rate [ 110 H Throughout] Respiratory 19 20 Rate Respiratory 15 Rate [ Throughout] Blood Pressure 103/38 103/38 O2 Sat by Pulse 91 91 Oximetry 12/11/18 12/11/18 12/11/18 02:00 02:11 02:20 Temperature Pulse Rate 84 91 H 86 Pulse Rate [ Throughout] Respiratory 19 20 19 Rate Respiratory Rate [ Throughout] Blood Pressure 113/37 113/37 113/37 O2 Sat by Pulse 91 92 90 Oximetry 12/11/18 12/11/18 12/11/18 02:30 02:41 02:51 Temperature Pulse Rate 88 88 84 Pulse Rate [ Throughout] Respiratory 20 20 20 Rate Respiratory Rate [ Throughout] Blood Pressure 110/45 113/37 113/37 O2 Sat by Pulse 88 91 91 Oximetry 12/11/18 12/11/18 12/11/18 03:00 03:06 03:11 Temperature 99.4 F Pulse Rate 83 85 Pulse Rate [ Throughout] Respiratory 20 20 Rate Respiratory Rate [ Throughout] Blood Pressure 107/40 107/40 O2 Sat by Pulse 87 92 Oximetry 12/11/18 12/11/18 12/11/18 03:21 03:30 03:41 Temperature Pulse Rate 86 82 89 Pulse Rate [ Throughout] Respiratory 20 20 20 Rate Respiratory Rate [ Throughout] Blood Pressure 107/40 107/42 107/42 O2 Sat by Pulse 92 87 95 Oximetry 12/11/18 12/11/18 12/11/18 03:51 04:00 04:11 Temperature Pulse Rate 89 92 H 87 Pulse Rate [ Throughout] Respiratory 23 23 20 Rate Respiratory Rate [ Throughout] Blood Pressure 107/42 117/55 117/55 O2 Sat by Pulse 93 90 95 Oximetry 12/11/18 12/11/18 12/11/18 04:21 04:30 04:41 Temperature Pulse Rate 82 80 80 Pulse Rate [ Throughout] Respiratory 20 20 21 Rate Respiratory Rate [ Throughout] Blood Pressure 117/55 109/49 109/49 O2 Sat by Pulse 95 89 94 Oximetry 12/11/18 12/11/18 12/11/18 04:50 04:58 05:00 Temperature Pulse Rate 81 77 77 Pulse Rate [ Throughout] Respiratory 20 20 Rate Respiratory Rate [ Throughout] Blood Pressure 113/37 109/49 109/41 O2 Sat by Pulse 95 95 91 Oximetry 12/11/18 12/11/18 12/11/18 05:11 05:21 05:23 Temperature Pulse Rate 77 80 87 Pulse Rate [ Throughout] Respiratory 20 20 20 Rate Respiratory Rate [ Throughout] Blood Pressure 109/49 109/49 O2 Sat by Pulse 96 94 92 Oximetry 12/11/18 08:00 Temperature 98.6 F Pulse Rate Pulse Rate [ Throughout] Respiratory Rate Respiratory Rate [ Throughout] Blood Pressure O2 Sat by Pulse Oximetry CBC and BMP: 12/11/18 03:43 12/11/18 03:43 ABG, PT/INR, D-dimer: ABG POC ABG pH 7.325 (7.35-7.45) L 12/10/18 17:22 ABG pH 7.388 pH Units (7.350-7.450) 12/11/18 05:04 POC ABG pCO2 47.4 (35-45) H 12/10/18 17:22 ABG pCO2 43.0 mm Hg 12/11/18 05:04 POC ABG pO2 79 (80-105) L 12/10/18 17:22 ABG pO2 71.8 mm Hg (80.0-90.0) L 12/11/18 05:04 POC ABG HCO3 24.7 (22-26 mml/L) 12/10/18 17:22 POC ABG Total CO2 26 (23-27mmol/L) 12/10/18 17:22 POC ABG O2 Sat 94 12/10/18 17:22 ABG O2 Saturation 95.1 % (95.0-99.0) 12/11/18 05:04 Abnormal lab findings: Abnormal Labs 12/09/18 12/09/18 12/10/18 23:10 23:10 04:56 WBC 12.2 H RBC 5.22 H MCV 83 L 83 L MCHC Lymph % (Auto) 11.6 L Eos % (Auto) 4.7 H Eos # 0.5 H Seg Neutrophils % 77.4 H Seg Neuts % (Manual) 97.0 H Lymphocytes % (Manual) 2.0 L Seg Neutrophils # 7.9 H Seg Neutrophils # Man 11.8 H Lymphocytes # (Manual) 0.2 L POC ABG pH ABG pH POC ABG pCO2 POC ABG pO2 ABG pO2 ABG O2 Saturation ABG Base Excess ABG Hemoglobin Oxyhemoglobin Carbon Dioxide Creatinine 0.7 L Glucose POC Glucose Calcium 12/10/18 12/10/18 12/10/18 04:56 05:10 08:30 WBC RBC MCV MCHC Lymph % (Auto) Eos % (Auto) Eos # Seg Neutrophils % Seg Neuts % (Manual) Lymphocytes % (Manual) Seg Neutrophils # Seg Neutrophils # Man Lymphocytes # (Manual) POC ABG pH ABG pH 7.269 L 7.318 L POC ABG pCO2 POC ABG pO2 ABG pO2 58.8 L ABG O2 Saturation 88.3 L ABG Base Excess -4.3 L -3.4 L ABG Hemoglobin 13.8 L 13.0 L Oxyhemoglobin 93.6 L 86.8 L Carbon Dioxide 20 L Creatinine Glucose 132 H POC Glucose Calcium 8.1 L 12/10/18 12/10/18 12/10/18 11:04 17:22 Unknown WBC RBC MCV MCHC Lymph % (Auto) Eos % (Auto) Eos # Seg Neutrophils % Seg Neuts % (Manual) Lymphocytes % (Manual) Seg Neutrophils # Seg Neutrophils # Man Lymphocytes # (Manual) POC ABG pH 7.325 L ABG pH 7.285 L POC ABG pCO2 47.4 H POC ABG pO2 79 L ABG pO2 195.2 H ABG O2 Saturation 99.1 H ABG Base Excess -3.9 L ABG Hemoglobin Oxyhemoglobin Carbon Dioxide Creatinine Glucose POC Glucose 146 H Calcium 12/10/18 12/11/18 12/11/18 Unknown 03:43 03:43 WBC 13.7 H RBC MCV 81 L MCHC 35 H Lymph % (Auto) Eos % (Auto) Eos # Seg Neutrophils % Seg Neuts % (Manual) Lymphocytes % (Manual) Seg Neutrophils # Seg Neutrophils # Man Lymphocytes # (Manual) POC ABG pH ABG pH 7.327 L POC ABG pCO2 POC ABG pO2 ABG pO2 74.8 L ABG O2 Saturation 94.7 L ABG Base Excess ABG Hemoglobin 13.7 L Oxyhemoglobin 93.1 L Carbon Dioxide Creatinine Glucose 153 H POC Glucose Calcium 12/11/18 05:04 WBC RBC MCV MCHC Lymph % (Auto) Eos % (Auto) Eos # Seg Neutrophils % Seg Neuts % (Manual) Lymphocytes % (Manual) Seg Neutrophils # Seg Neutrophils # Man Lymphocytes # (Manual) POC ABG pH ABG pH POC ABG pCO2 POC ABG pO2 ABG pO2 71.8 L ABG O2 Saturation ABG Base Excess ABG Hemoglobin 11.9 L Oxyhemoglobin 93.7 L Carbon Dioxide Creatinine Glucose POC Glucose Calcium
--- NOTE | 2018-12-11 10:50 | Ultrasound Report ---
ULTRASOUND RENAL INDICATION: Urinary retention. COMPARISON: No relevant prior imaging study available. FINDINGS: RIGHT KIDNEY: Size: 11 cm. Echogenicity: Normal. Cortical thickness: Normal, 1.8 cm. Hydronephrosis: None. Cyst or mass: None. Stones: None. LEFT KIDNEY: Size: 9.5 cm. Echogenicity: Normal. Cortical thickness: Normal, 1.9 cm. Hydronephrosis: None. Cyst or mass: None. Stones: None. Urinary Bladder: No significant abnormality. Free Fluid: None. Additional Findings: None. IMPRESSION No acute sonographic abnormality of the kidneys. Signer Name: Bhupinder Moore MD Signed: 12/11/2018 10:46 AM Workstation Name: [id number]
[2018-12-11] MEDS: LOVENOX SUB-Q SCH (11:11)
[2018-12-11] MEDS: PEPCID PO SCH (11:12)
[2018-12-11] MEDS: SODIUM CHLORIDE FLUSH SYRINGE 10 ML IV SCH ×2 (11:14→22:36)
--- NOTE | 2018-12-11 11:19 | Event Note ---
Date: 12/11/18 CXR reviewed. Has pneumomediastinum with subcutaneous emphysema. No true pneumothorax. Plan to extubate if he meets criteria, get follow up ACT chest without contrast to evaluate the pulmonary parenchyma
--- NOTE | 2018-12-11 11:31 | XRay Report ---
CHEST 1 VIEW INDICATION / CLINICAL INFORMATION: sub emphysema. COMPARISON: 12/10/2018 FINDINGS: SUPPORT DEVICES: ET tube and NG tube remain in stable and satisfactory position. HEART / MEDIASTINUM: A significant pneumomediastinum has developed since yesterday's chest radiograph . LUNGS / PLEURA: A left pneumothorax has developed since yesterday's chest radiograph. In the left morena g apex there is a 2 cm vertical length of pneumothorax present. Additionally there is moderate amount of subcutaneous emphysema in the supraclavicular soft tissues bilaterally. Prominent bibasilar atelectasis is noted. No interstitial pulmonary edema. ADDITIONAL FINDINGS: No significant additional findings. IMPRESSION: 1. Since yesterday's chest radiograph, a small left pneumothorax has developed with associated signif icant pneumomediastinum and subcutaneous emphysema in the supraclavicular soft tissues bilaterally. T his report was called to the patient's nurse, Bubba, at 1023 hours PLASTIC DESIGN APPLIER. Signer Name: Mnady Parkinson MD Signed: 12/11/2018 11:27 AM Workstation Name: [id number]
--- NOTE | 2018-12-11 16:26 | Cat Scan Report ---
CT CHEST WITHOUT CONTRAST INDICATION: Pneumomediastinum. Pneumothorax. TECHNIQUE: Axial CT images were obtained through the chest without contrast. Lack of IV contrast limits evaluati on of the vascular and solid organs. Coronal and sagittal reformats were produced. All CT scans at [facility] are performed using CT dose reduction for ALARA by means of automated exposure control. COMPARISON: One view of the chest from earlier today. FINDINGS: MEDIASTINUM: There is extensive pneumomediastinum. No pneumopericardium is seen. No significant abnor mality of the thyroid gland is noted. The trachea and main bronchi are patent and normal in caliber. No mass or lymphadenopathy is seen. The aorta is normal in caliber without significant atherosclerosi s. The heart is normal in size without a pericardial effusion. There is no mediastinal shift. LUNGS: Small to moderate pneumothoraces are noted. Atelectasis is present along the lung bases. No s ignificant pleural effusion. No suspicious nodule or mass. ADDITIONAL FINDINGS: Subcutaneous emphysema is present throughout the neck and along the chest. The p reviously seen ET and NG tubes have been removed. UPPER ABDOMEN: No significant abnormality. SKELETAL SYSTEM: No significant abnormality. IMPRESSION: 1. Small to moderate bilateral pneumothoraces without mediastinal shift. 2. Extensive pneumomediastinum and subcutaneous emphysema without a clear etiology. Signer Name: Bhupinder Moore MD Signed: 12/11/2018 4:21 PM Workstation Name: [id number]
[2018-12-12] MEDS: DUONEB *Not for PRN Use IH SCH ×3 (01:26→20:40)
[2018-12-12] MEDS: SOLU-Medrol IV SCH ×3 (02:17→13:15)
[2018-12-12] MEDS ORDERED: PERCOCET 5/325 PO PRN (07:58)
--- NOTE | 2018-12-12 07:58 | Progress Note ---
Assessment and Plan Assessment and plan: 18 with a history of asthma, Anxiety disorder, bipolar, ADHD similar to complaints of shortness of breath 2 days per the girlfriend at bedside. He also has a cough productive of green phlegm. The emergency room he was found to be started distress started on BiPAP, he improved but then later became hypoxic and was subsequently intubated. A review of system is unobtainable. * Per girlfriend at bedside, patient ran out of his Inhaler and recently lost his nebulizer machine. * Patient had a prior intubation about a year ago for Asthma exacerbation CXR: Right lower lobe and probable right middle lobe atelectasis/postobstructive pneumonia. An endobronchial lesion/mucous plug should be considered. Aspiration is possible. CTA: IMPRESSION: 1. Small to moderate bilateral pneumothoraces without mediastinal shift. 2. Extensive pneumomediastinum and subcutaneous emphysema without a clear etiology. Renal US. IMPRESSION No acute sonographic abnormality of the kidneys. Acute respiratory failure s/p Intubation done in the ED now extubated Status Asthmaticus with Acute asthma exacerbation with bronchitis Pneumothoraces-Bilateral, small to moderate Extensive Pneumomediastinum and Subcutaneous Emphysema Bradycardia ?Result of possible tension penumothorax Pleuritic chest pain THC use disorder' Possible Mucus Plugging Tobacco use disorder Respiratory acidosis Possible Aspiration pneumonia ADHD Bipolar Anxiety disorder Leukocytosis Plan Continue supportive care Aspiration precautions Management per Critical care team Obtain echo cardiogram EKG-SR Successfully extubated Antibiotics discontinued and will monitor LABA and MARNIE Taper steroids Monitor Cultures Restraints for safety. Consult critical care, DVT prophylaxis Continue sedation,, continue fentanyl start IV fluid Discussed with FAMILY AT BEDSIDE Discussed with Elisabet blandon severeity of Pnumotheroacis reviewed, Very helpfully in speaking with [place] transfer line, since unable to get accepting CTS at [facility]. [place] DECLINED Accepting patient, initially wanted insurance verification and late the cts stated to continue with planned chest tube and monitor. History Interval history: Patient seen and examined, Fiancee at bedside, Extubated, still with wheezing, still with mild shortness of breath but speaking in full sentences. Per nursing staff no further urinary retention Hospitalist Physical - Physical exam Narrative exam: VITAL SIGNS: Reviewed. GENERAL: The patient appears normally developed, Vital signs as documented. HEAD: No signs of head trauma. EYES: Pupils are equal. Extraocular motions intact. EARS: Hearing grossly intact. MOUTH: Oropharynx is normal. NECK: No adenopathy, no JVD. CHEST: Chest with WHEEZING breath sounds bilaterally. No rales, or rhonchi. CARDIAC: Regular rate and rhythm. S1 and S2, without murmurs, gallops, or rubs. VASCULAR: No Edema. Peripheral pulses normal and equal in all extremities. ABDOMEN: Soft, non tender and non distended. No rebound or guarding, and no masses palpated. Bowel Sounds normal. MUSCULOSKELETAL: Good range of motion of all major joints. Extremities without clubbing, cyanosis or edema. NEUROLOGIC EXAM: Alert and oriented x 3 No focal sensory or strength deficits. Speech normal. Follows commands. PSYCHIATRIC: Mood normal. SKIN: detail exam as documented in skin assessment - Constitutional Vitals: Temp Pulse Resp BP Pulse Ox 98.8 F 53 L 19 131/69 91 12/12/18 04:00 12/12/18 06:01 12/12/18 06:01 12/12/18 06:01 12/12/18 06:01 Results - Labs CBC & Chem 7: 12/11/18 03:43 12/11/18 03:43 Labs: Laboratory Last Values WBC 13.7 K/mm3 (4.5-11.0) H 12/11/18 03:43 RBC 4.57 M/mm3 (3.65-5.03) 12/11/18 03:43 Hgb 12.9 gm/dl (11.8-15.2) 12/11/18 03:43 Hct 36.9 % (35.5-45.6) 12/11/18 03:43 MCV 81 fl (84-94) L 12/11/18 03:43 MCH 28 pg (28-32) 12/11/18 03:43 MCHC 35 % (32-34) H 12/11/18 03:43 RDW 14.0 % (13.2-15.2) 12/11/18 03:43 Plt Count 189 K/mm3 (140-440) 12/11/18 03:43 Lymph % (Auto) 11.6 % (13.4-35.0) L 12/09/18 23:10 [place] % (Auto) 6.1 % (0.0-7.3) 12/09/18 23:10 Eos % (Auto) 4.7 % (0.0-4.3) H 12/09/18 23:10 Baso % (Auto) 0.2 % (0.0-1.8) 12/09/18 23:10 Lymph # 1.2 K/mm3 (1.2-5.4) 12/09/18 23:10 [place] # 0.6 K/mm3 (0.0-0.8) 12/09/18 23:10 Eos # 0.5 K/mm3 (0.0-0.4) H 12/09/18 23:10 Baso # 0.0 K/mm3 (0.0-0.1) 12/09/18 23:10 Add Manual Diff Complete 12/10/18 04:56 Total Counted 100 12/10/18 04:56 Seg Neutrophils % 77.4 % (40.0-70.0) H 12/09/18 23:10 Seg Neuts % (Manual) 97.0 % (40.0-70.0) H 12/10/18 04:56 0 % 12/10/18 04:56 2.0 % (13.4-35.0) L 12/10/18 04:56 Reactive Lymphs % (Man) 0 % 12/10/18 04:56 1.0 % (0.0-7.3) 12/10/18 04:56 0 % (0.0-4.3) 12/10/18 04:56 0 % (0.0-1.8) 12/10/18 04:56 0 % 12/10/18 04:56 0 % 12/10/18 04:56 0 % 12/10/18 04:56 0 % 12/10/18 04:56 Nucleated RBC % Not Reportable 12/10/18 04:56 Seg Neutrophils # 7.9 K/mm3 (1.8-7.7) H 12/09/18 23:10 Seg Neutrophils # Man 11.8 K/mm3 (1.8-7.7) H 12/10/18 04:56 Band Neutrophils # 0.0 K/mm3 12/10/18 04:56 0.2 K/mm3 (1.2-5.4) L 12/10/18 04:56 Abs React Lymphs (Man) 0.0 K/mm3 12/10/18 04:56 0.1 K/mm3 (0.0-0.8) 12/10/18 04:56 0.0 K/mm3 (0.0-0.4) 12/10/18 04:56 0.0 K/mm3 (0.0-0.1) 12/10/18 04:56 0.0 K/mm3 12/10/18 04:56 0.0 K/mm3 12/10/18 04:56 0.0 K/mm3 12/10/18 04:56 Blast Cells # 0.0 K/mm3 12/10/18 04:56 WBC Morphology Not Reportable 12/10/18 04:56 Hypersegmented Neuts Not Reportable 12/10/18 04:56 Hyposegmented Neuts Not Reportable 12/10/18 04:56 Hypogranular Neuts Not Reportable 12/10/18 04:56 Not Reportable 12/10/18 04:56 Not Reportable 12/10/18 04:56 Not Reportable 12/10/18 04:56 Not Reportable 12/10/18 04:56 Not Reportable 12/10/18 04:56 Not Reportable 12/10/18 04:56 Consistent w auto 12/10/18 04:56 Not Reportable 12/10/18 04:56 Plt Clumps, EDTA Not Reportable 12/10/18 04:56 Not Reportable 12/10/18 04:56 Not Reportable 12/10/18 04:56 Not Reportable 12/10/18 04:56 Plt Morphology Comment Not Reportable 12/10/18 04:56 RBC Morphology Normal 12/10/18 04:56 Dimorphic RBCs Not Reportable 12/10/18 04:56 Not Reportable 12/10/18 04:56 Not Reportable 12/10/18 04:56 Not Reportable 12/10/18 04:56 Not Reportable 12/10/18 04:56 Not Reportable 12/10/18 04:56 Not Reportable 12/10/18 04:56 Not Reportable 12/10/18 04:56 Not Reportable 12/10/18 04:56 Not Reportable 12/10/18 04:56 Not Reportable 12/10/18 04:56 Not Reportable 12/10/18 04:56 Not Reportable 12/10/18 04:56 Not Reportable 12/10/18 04:56 Not Reportable 12/10/18 04:56 Not Reportable 12/10/18 04:56 Not Reportable 12/10/18 04:56 Not Reportable 12/10/18 04:56 Not Reportable 12/10/18 04:56 Not Reportable 12/10/18 04:56 Acanthocytes (Spur) Not Reportable 12/10/18 04:56 Rouleaux Not Reportable 12/10/18 04:56 Not Reportable 12/10/18 04:56 Not Reportable 12/10/18 04:56 Not Reportable 12/10/18 04:56 Not Reportable 12/10/18 04:56 Hem Pathologist Commnt No 12/10/18 04:56 POC ABG pH 7.325 (7.35-7.45) L 12/10/18 17:22 ABG pH 7.388 pH Units (7.350-7.450) 12/11/18 05:04 POC ABG pCO2 47.4 (35-45) H 12/10/18 17:22 ABG pCO2 43.0 mm Hg 12/11/18 05:04 POC ABG pO2 79 (80-105) L 12/10/18 17:22 ABG pO2 71.8 mm Hg (80.0-90.0) L 12/11/18 05:04 POC ABG HCO3 24.7 (22-26 mml/L) 12/10/18 17:22 ABG HCO3 25.3 mmol/L (20.0-26.0) 12/11/18 05:04 POC ABG Total CO2 26 (23-27mmol/L) 12/10/18 17:22 POC ABG O2 Sat 94 12/10/18 17:22 ABG O2 Saturation 95.1 % (95.0-99.0) 12/11/18 05:04 ABG O2 Content 19.8 (0.0-44) 12/11/18 05:04 POC ABG Base Excess -1 ((-2) - (+3)mmol/L) 12/10/18 17:22 ABG Base Excess 0.1 mmol/L (-2.0-3.0) 12/11/18 05:04 ABG Hemoglobin 11.9 gm/dl (14.0-18.0) L 12/11/18 05:04 ABG Carboxyhemoglobin 1.0 % (0.0-5.0) 12/11/18 05:04 ABG Methemoglobin 0.5 % (0.0-1.5) 12/11/18 05:04 93.7 % (95.0-99.0) L 12/11/18 05:04 55 % 12/11/18 05:04 Sodium 140 mmol/L (137-145) 12/11/18 03:43 Potassium 4.5 mmol/L (3.6-5.0) 12/11/18 03:43 Chloride 104.0 mmol/L (98-107) 12/11/18 03:43 Carbon Dioxide 24 mmol/L (22-30) 12/11/18 03:43 17 mmol/L 12/11/18 03:43 BUN 14 mg/dL (9-20) 12/11/18 03:43 0.8 mg/dL (0.8-1.5) 12/11/18 03:43 Estimated GFR > 60 ml/min 12/11/18 03:43 18 % 12/11/18 03:43 Glucose 153 mg/dL (75-100) H 12/11/18 03:43 POC Glucose 114 (70-105) H 12/11/18 17:28 Lactic Acid 1.80 mmol/L (0.7-2.0) 12/09/18 23:13 Calcium 8.4 mg/dL (8.4-10.2) 12/11/18 03:43 1.00 mg/dL (0.1-1.2) 12/09/18 23:10 AST 21 units/L (5-40) 12/09/18 23:10 ALT 13 units/L (7-56) 12/09/18 23:10 94 units/L (35-129) 12/09/18 23:10 1.30 mg/dL (0.00-1.30) 12/10/18 12:16 7.6 g/dL (6.3-8.2) 12/09/18 23:10 4.3 g/dL (3.9-5) 12/09/18 23:10 1.3 % 12/09/18 23:10 Yellow (Yellow) 12/09/18 02:19 Clear (Clear) 12/09/18 02:19 7.0 (5.0-7.0) 12/09/18 02:19 Ur Specific [place] 1.028 (1.003-1.030) 12/09/18 02:19 <15 mg/dl mg/dL (Negative) 12/09/18 02:19 Neg mg/dL (Negative) 12/09/18 02:19 Neg mg/dL (Negative) 12/09/18 02:19 Neg (Negative) 12/09/18 02:19 Neg (Negative) 12/09/18 02:19 Neg (Negative) 12/09/18 02:19 4.0 mg/dL (<2.0) 12/09/18 02:19 Ur Leukocyte Esterase Neg (Negative) 12/09/18 02:19 2.0 /HPF (0.0-6.0) 12/09/18 02:19 1.0 /HPF (0.0-6.0) 12/09/18 02:19 Few /HPF 12/09/18 02:19 Presumptive negative 12/09/18 22:45 Presumptive negative 12/09/18 22:45 Ur Barbiturates Screen Presumptive negative 12/09/18 22:45 Ur Phencyclidine Scrn Presumptive negative 12/09/18 22:45 Ur Amphetamines Screen Presumptive negative 12/09/18 22:45 U Benzodiazepines Scrn Presumptive negative 12/09/18 22:45 Presumptive negative 12/09/18 22:45 U Marijuana (THC) Screen Presumptive positive 12/09/18 22:45 Disclamer 12/09/18 22:45 Active Medications - Current Medications Current Medications: Generic Name Dose Route Start Last Admin Trade Name Freq PRN Reason Stop Dose Admin Acetaminophen 650 mg 12/10/18 01:34 Tylenol PO Q4H PRN Pain MILD(1-3)/Fever >100.5/[place] Albuterol/Ipratropium 1 ampul 12/10/18 02:00 12/12/18 01:26 Duoneb *Not For Prn Use* IH Not Given Q6HRT KELLE Lipase/Protease/Amylase 1 each 12/10/18 13:30 Pancreaze 10,500 Unit FEEDTUBE PRN PRN For Clogged Feeding Tube Arformoterol Tartrate 15 mcg 08/23/19 13:30 12/11/18 20:43 Brovana Nebu IH 15 mcg Q12HRT KELLE Administration Budesonide 0.5 mg 12/10/18 20:00 12/11/18 20:43 Pulmicort IH 0.5 mg Q12HRT KELLE Administration Enoxaparin Sodium 40 mg 12/10/18 10:00 12/11/18 11:11 Lovenox SUB-Q 40 mg QDAY KELLE Administration Famotidine 20 mg 12/10/18 14:00 12/11/18 11:12 Pepcid PO 20 mg QDAY KELLE Administration Hydrophilic Ointment 1 applic 12/10/18 05:59 Vaseline Lip Therapy TP DIRECT PRN Dry Lips Propofol 1,000 mg in 100 mls @ 1.701 mls/hr 12/10/18 01:00 12/11/18 10:09 Diprivan 10 Mg/Ml IV Infused TITR KELLE Titration Protocol 5 MCG/KG/MIN Methylprednisolone Sodium Succinate 60 mg 12/10/18 13:30 12/12/18 07:03 Solu-Medrol IV 60 mg Q6HR KELLE Administration Ondansetron HCl 4 mg 12/10/18 01:34 Zofran IV Q8H PRN Nausea And Vomiting Simple Syrup 15 ml 12/10/18 12:50 Simple Syrup FEEDTUBE PRN PRN Hypoglycemia Simple Syrup 30 ml 12/10/18 12:50 Simple Syrup FEEDTUBE PRN PRN Hypoglycemia Sodium Bicarbonate 325 mg 12/10/18 12:50 Sodium Bicarbonate FEEDTUBE PRN PRN For Clogged Feeding Tube Sodium Chloride 10 ml 12/10/18 10:00 12/11/18 22:36 Sodium Chloride Flush Syringe 10 Ml IV 10 ml BID KELLE Administration Sodium Chloride 10 ml 12/10/18 01:34 Sodium Chloride Flush Syringe 10 Ml IV PRN PRN LINE FLUSH Nutrition/Malnutrition Assess - Dietary Evaluation Nutrition/Malnutrition Findings: Nutrition Notes Start: 12/10/18 11:30 Freq: Status: Active Protocol: Document 12/10/18 11:30 LM (Rec: 12/10/18 11:54 LM [id number]) Nutrition Notes Need for Assessment generated from: parts room assistant,MST Initial or Follow up Assessment Other Pertinent Diagnosis Asthma, bipolar disorder, ARF, peach allergy Current Diet NPO Labs/Tests BG 132 Pertinent Medications Propofol providing 45 kcal Solumedrol Height 5 ft 7 in Weight 61 kg [place] Body Weight (kg) 67.27 BMI 21.0 Intake Prior to Admission Excellent Weight Status Appropriate Subjective/Other Information RN screen for MST. Pt on vent. Per girlfriend pt had a very good appetite at home and stated pt wants to eat. Girlfriend was unaware of pt's UBW but denied any wt changes . Burn Absent Trauma Absent #1 Nutrition Diagnosis Inadequate oral intake Etiology Mechanical vent As Evidenced by Signs and Symptoms Pt NPO Is patient on ventilator? Yes Is Patient Ambulatory and/or Out of Bed No REE-([facility]-confined to bed) [phone] Calculation Used for Recommendations [facility] Additional Notes Protein: 73-122g (1.2-2g/kg) Fluids: 1ml/kcal Nutrition Intervention Change Diet Order: TF Nutrition Support: Jevity 1.2 at 65 ml/hr Flush 100ml q4hr Kcal 1,872 Protein (gm) 87 Fluid (mL) 1,259 Goal #1 TF start Anticipated Discharge Needs: Regular diet Follow-Up By: 12/13/18 Additional Comments F/U for TF start or diet advancement
[2018-12-12] MEDS: BROVANA NEBU IH SCH (08:04)
[2018-12-12] MEDS: PULMICORT IH SCH (08:04)
[2018-12-12] MEDS: LOVENOX SUB-Q SCH (09:51)
[2018-12-12] MEDS: PEPCID PO SCH (09:52)
[2018-12-12] MEDS: SODIUM CHLORIDE FLUSH SYRINGE 10 ML IV SCH (09:56)
[2018-12-12] MEDS ORDERED: PROVENTIL IH PRN (14:20)
--- NOTE | 2018-12-12 15:15 | Progress Note ---
Assessment and Plan Acute respiratory failure s/p Intubation done in the ED Acute Bilateral Pneumomediastinum Acute Bilateral Pneumothoraces Status Asthmaticus with Acute asthma exacerbation with bronchitis THC use disorder' Possible Mucus Plugging Tobacco use disorder Respiratory acidosis Possible Aspiration pneumonia ADHD Bipolar Anxiety disorder Leukocytosis (CT chest from yesterday suggest mild right shift of mediastinum; patient appear s clinically stable at this point but may decompensate suddenly and tentatively bradyarrythmia may be related to early tension) - surgery to place left chest tube (Input greatly appreciated) - will initiaite transfer to center with a cardiothoracic surgeon - supplemental oxygen to aid resorption (100% FiO2 via NRB) - hold transfer out of ICU - avoid positive pressure ventilation - cardiology evaluation ongoing (2D ECHO ordered) - advance diet as tolerated but NPO for chest tube now - Accucheck with glycemic control, target blood glucose <180 mg/dL - VTE prophylaxis - Stress ulcer prophylaxis - continue systemic steroid taper - continue Bronchodilators with pulmonary hygiene per RT - Follow up cultures - continue other care per attending / other consultants ..... re-evaluate in am & prn CONDITION: CRITICAL PROGNOSIS: FAIR CODE STATUS: FULL CODE SBT today, get weaning parameters, if acceptable plan to liberate from mechanical ventilatory support. Discussed with RT, RN The high probability of a clinically significant, sudden or life-threatening deterioration of the [RESPIRATORY] system(s) required my full and direct attention, intervention and personal management. The aggregate critical care time was [40] minutes without overlap. Time includes spent on; [x] Data Review and interpretation [x] Patient assessment and monitoring of vital signs [x] Documentation [x] Medication orders and management Subjective Date of service: 12/12/18 Principal diagnosis: Ac hypoxemic resp failure; Status Asthmaticus; bilateral pneumothoraces Interval history: Patient is seen today for: Acute respiratory failure on MVS; Status Asthmaticus; Acute asthma exacerbation with bronchitis Seen and examined at bedside; 24hour events reviewed; nursing and respiratory care staff consulted; no adverse overnight events reported to me; resting peacef ully in bed; denies acute chest pains or palpitations; has had some bradycardic episodes today but assymptomatic; No N/V/F/C Objective Vital Signs - 12hr 12/12/18 12/12/18 12/12/18 04:00 04:01 05:00 Temperature 98.8 F Pulse Rate 52 L 65 Pulse Rate [ Throughout] Respiratory 14 19 Rate Respiratory Rate [ Throughout] Blood Pressure 127/86 142/92 O2 Sat by Pulse 93 92 88 Oximetry 12/12/18 12/12/18 12/12/18 06:01 07:01 08:00 Temperature 98.4 F Pulse Rate 53 L 50 L 53 L Pulse Rate [ 52 L Throughout] Respiratory 19 17 16 Rate Respiratory 18 Rate [ Throughout] Blood Pressure 131/69 139/81 138/90 O2 Sat by Pulse 91 94 Oximetry 12/12/18 12/12/18 12/12/18 08:05 09:00 10:00 Temperature Pulse Rate 64 72 Pulse Rate [ Throughout] Respiratory 16 21 Rate Respiratory Rate [ Throughout] Blood Pressure 117/72 128/74 O2 Sat by Pulse 96 95 91 Oximetry 12/12/18 12/12/18 12/12/18 11:00 12:00 13:00 Temperature 98.2 F Pulse Rate 55 L 55 L 48 L Pulse Rate [ Throughout] Respiratory 17 20 14 Rate Respiratory Rate [ Throughout] Blood Pressure 120/70 116/80 127/79 O2 Sat by Pulse 94 96 95 Oximetry 12/12/18 12/12/18 14:00 15:01 Temperature Pulse Rate 50 L 88 Pulse Rate [ Throughout] Respiratory 19 17 Rate Respiratory Rate [ Throughout] Blood Pressure 138/86 134/86 O2 Sat by Pulse 94 96 Oximetry Constitutional: no acute distress, alert, other (young AAM, normocephalic and at raumatic with normal respiratory effort at rest) Eyes: non-icteric ENT: oropharynx moist Neck: supple, no lymphadenopathy, no JVD, other (+ Sub-Q emphysema to lower right neck) Effort: normal Ascultation: Bilateral: clear, diminished breath sounds Percussion: Bilateral: not dull Cardiovascular: regular rate and rhythm, other (bradycardia) Gastrointestinal: normoactive bowel sounds, soft, non-tender, non-distended Integumentary: normal Extremities: no cyanosis, no edema, pulses normal, no ischemia or petechiae Neurologic: normal mental status, non-focal exam, pupils equal and round, motor strength normal and Psychiatric: mood appropriate, affect normal CBC and BMP: 12/11/18 03:43 12/11/18 03:43 ABG, PT/INR, D-dimer: ABG POC ABG pH 7.325 (7.35-7.45) L 12/10/18 17:22 ABG pH 7.388 pH Units (7.350-7.450) 12/11/18 05:04 POC ABG pCO2 47.4 (35-45) H 12/10/18 17:22 ABG pCO2 43.0 mm Hg 12/11/18 05:04 POC ABG pO2 79 (80-105) L 12/10/18 17:22 ABG pO2 71.8 mm Hg (80.0-90.0) L 12/11/18 05:04 POC ABG HCO3 24.7 (22-26 mml/L) 12/10/18 17:22 POC ABG Total CO2 26 (23-27mmol/L) 12/10/18 17:22 POC ABG O2 Sat 94 12/10/18 17:22 ABG O2 Saturation 95.1 % (95.0-99.0) 12/11/18 05:04 Abnormal lab findings: Abnormal Labs 12/09/18 12/09/18 12/10/18 23:10 23:10 04:56 WBC 12.2 H RBC 5.22 H MCV 83 L 83 L MCHC Lymph % (Auto) 11.6 L Eos % (Auto) 4.7 H Eos # 0.5 H Seg Neutrophils % 77.4 H Seg Neuts % (Manual) 97.0 H Lymphocytes % (Manual) 2.0 L Seg Neutrophils # 7.9 H Seg Neutrophils # Man 11.8 H Lymphocytes # (Manual) 0.2 L POC ABG pH ABG pH POC ABG pCO2 POC ABG pO2 ABG pO2 ABG O2 Saturation ABG Base Excess ABG Hemoglobin Oxyhemoglobin Carbon Dioxide Creatinine 0.7 L Glucose POC Glucose Calcium 12/10/18 12/10/18 12/10/18 04:56 05:10 08:30 WBC RBC MCV MCHC Lymph % (Auto) Eos % (Auto) Eos # Seg Neutrophils % Seg Neuts % (Manual) Lymphocytes % (Manual) Seg Neutrophils # Seg Neutrophils # Man Lymphocytes # (Manual) POC ABG pH ABG pH 7.269 L 7.318 L POC ABG pCO2 POC ABG pO2 ABG pO2 58.8 L ABG O2 Saturation 88.3 L ABG Base Excess -4.3 L -3.4 L ABG Hemoglobin 13.8 L 13.0 L Oxyhemoglobin 93.6 L 86.8 L Carbon Dioxide 20 L Creatinine Glucose 132 H POC Glucose Calcium 8.1 L 12/10/18 12/10/18 12/10/18 11:04 17:22 Unknown WBC RBC MCV MCHC Lymph % (Auto) Eos % (Auto) Eos # Seg Neutrophils % Seg Neuts % (Manual) Lymphocytes % (Manual) Seg Neutrophils # Seg Neutrophils # Man Lymphocytes # (Manual) POC ABG pH 7.325 L ABG pH 7.285 L POC ABG pCO2 47.4 H POC ABG pO2 79 L ABG pO2 195.2 H ABG O2 Saturation 99.1 H ABG Base Excess -3.9 L ABG Hemoglobin Oxyhemoglobin Carbon Dioxide Creatinine Glucose POC Glucose 146 H Calcium 12/10/18 12/11/18 12/11/18 Unknown 03:43 03:43 WBC 13.7 H RBC MCV 81 L MCHC 35 H Lymph % (Auto) Eos % (Auto) Eos # Seg Neutrophils % Seg Neuts % (Manual) Lymphocytes % (Manual) Seg Neutrophils # Seg Neutrophils # Man Lymphocytes # (Manual) POC ABG pH ABG pH 7.327 L POC ABG pCO2 POC ABG pO2 ABG pO2 74.8 L ABG O2 Saturation 94.7 L ABG Base Excess ABG Hemoglobin 13.7 L Oxyhemoglobin 93.1 L Carbon Dioxide Creatinine Glucose 153 H POC Glucose Calcium 12/11/18 12/11/18 05:04 17:28 WBC RBC MCV MCHC Lymph % (Auto) Eos % (Auto) Eos # Seg Neutrophils % Seg Neuts % (Manual) Lymphocytes % (Manual) Seg Neutrophils # Seg Neutrophils # Man Lymphocytes # (Manual) POC ABG pH ABG pH POC ABG pCO2 POC ABG pO2 ABG pO2 71.8 L ABG O2 Saturation ABG Base Excess ABG Hemoglobin 11.9 L Oxyhemoglobin 93.7 L Carbon Dioxide Creatinine Glucose POC Glucose [address] scan - chest: image reviewed (extensive pneumomediastinum with bilateral pleural effusions and bilateral pneumothoraces) Allied health notes reviewed: nursing
[2018-12-12] MEDS ORDERED: XYLOCAINE 1%/ EPI 1:100,000 INFILTRATI ONE (15:54)
--- NOTE | 2018-12-12 16:18 | XRay Report ---
CHEST 1 VIEW 12/12/2018 3:56 PM INDICATION / CLINICAL INFORMATION: pneumothorax. COMPARISON: CT of the chest without contrast from 09/10/2018. FINDINGS: SUPPORT DEVICES: None. HEART / MEDIASTINUM: Normal cardiac size with similar pneumomediastinum. LUNGS / PLEURA: Bilateral pneumothoraces are stable. Right basilar atelectasis is unchanged. No new a cute pulmonary abnormality is seen. A possible trace right pleural effusion has developed in the inte rval. ADDITIONAL FINDINGS: Subcutaneous emphysema along the neck is stable. IMPRESSION: Stable bilateral pneumothoraces and pneumomediastinum with possible development of a trace right pleu ral effusion. Signer Name: Bhupinder Moore MD Signed: 12/12/2018 4:13 PM Workstation Name: [id number]
[2018-12-12] MEDS ORDERED: DILAUDID IV ONE (18:52)
--- NOTE | 2018-12-12 18:53 | Consultation ---
History of Present Illness Consult date: 12/12/18 Reason for consult: other (Bilateral PTX) Requesting physician: RODRI FITZGERALD Chief complaint: Difficulty breathing - History of present illness History of present illness: 18yo M with history of asthma presented to the ED with an asthma attack and was ultimately intubated. Pt was able to be extubated in the ICU, but was later found to have bilateral PTXs. [employer] was concerned about potential for decompensation and requested Gen Surg consult for chest tube placement. Pt reports that he is currrently breathing better than when he came in, but it is still not normal. Past History Past Medical History: other (asthma, bipolar) Past Surgical History: tonsillectomy (no complications) Social history: smoking (1-2 cigs per day). denies: alcohol abuse Family history: no significant family history Medications and Allergies Allergies Allergy/AdvReac Type Severity Reaction Status Date / Time peach [Let[place]] Allergy Severe Anaphylaxis Verified 01/29/15 07:49 pollen extracts Allergy Itching Verified 01/29/15 07:56 venom-honey bee Allergy Hives Verified 01/29/15 07:56 [bee venom (honey bee)] Home Medications Medication Instructions Recorded Confirmed Last Taken Type Fluticasone/Salmeterol [Advair 1 puff IH BID 01/17/13 12/10/18 Unknown History Diskus 100-50 mcg] Nebulizer [Airs Disposable 1 each MC PRN 01/17/13 12/10/18 Unknown History Nebulizer] ALBUTEROL NEB's [Proventil 0.083% 2.5 mg IH TID PRN #1 box 04/13/18 12/10/18 Unknown Rx NEBS] Active Meds: Active Medications Albuterol (Proventil) 2.5 mg IH Q4HRT PRN PRN Reason: Shortness Of Breath Albuterol/Ipratropium (Duoneb *Not For Prn Use*) 1 ampul IH Q6HRT KELLE Hydromorphone HCl (Dilaudid) 0.5 mg IV ONCE ONE Stop: 12/12/18 18:53 Hydromorphone HCl (Dilaudid) 0.25 mg IV Q3H PRN PRN Reason: Pain , Severe (7-10) Review of Systems - Constitutional no fever, no chills, no chronic pain - Cardiovascular chest pain, shortness of breath - Respiratory cough, dyspnea on exertion - Gastrointestinal no abdominal pain - Muskuloskeletal other (no back pain) - Integumentary no rash, no wounds Exam Vital Signs Pulse 103 H 12/09/18 22:34 - General physical appearance Positive: well developed, well nourished, no distress, no pain, other (non- rebreather mask currently on) - Eyes Positive: normal occular movement - Neck Positive: other (palpable subQ air in base of neck and upper shoulders. ) - Respiratory Positive: normal expansion, normal respiratory effort, clear to auscultation (decreased bilaterally) - Cardiovascular Rhythm: regular - Abdomen Abdomen: Present: soft - Integumentary no rash, no growths, no abnormal pigmentation - Neurologic Neurologic: alert and oriented to time, place and person, motor strength and sensation are grossly intact - Psychiatric Psychiatric: appropriate mood/affect, intact judgment & insight, cooperative Results - Labs 12/11/18 03:43 12/11/18 03:43 - Imaging CT scan - chest: report reviewed, image reviewed Assessment and Plan - Patient Problems (1) Bilateral pneumothorax Current Visit: Yes Status: Acute Plan to address problem: Pt has moderate sized PTXx bilaterally with a slight pericardial shift to the right and consolidation in the right lung. I think he would benefit from bilateral chest tubes. Dr. Antunez in agreement. Procedure, risks, benefits discussed. All questions answered. Patient and family in agreement with plan. Consent obtained. Will plan to place chest tubes today. Time=30min
--- NOTE | 2018-12-12 18:53 | Procedure Note ---
Date of procedure: 12/12/18 Pre-op diagnosis: bilateral pneumothoraces Post-op diagnosis: same Procedure: bilateral small bore chest tube placement Findings: good aspiration of air on both sides. CXR shows near complete resolution of PTXs Implants: bilateral small bore chest tubes Anesthesia: local Surgeon: CINDI MOYA Estimated blood loss: none Pathology: none Condition: stable Disposition: ICU
--- NOTE | 2018-12-12 19:24 | XRay Report ---
CHEST 1 VIEW INDICATION / CLINICAL INFORMATION: bilateral chest tube. COMPARISON: 12/12/2018 at 1556 hours FINDINGS: SUPPORT DEVICES: Since earlier chest radiograph, bilateral smallbore chest tubes have been placed. Pr eviously noted left pneumothorax has completely resolved following chest tube placement. Previously n oted small right pneumothorax has also nearly completely resolved. Tiny right pneumothorax remains me dially. HEART / MEDIASTINUM: No significant abnormality. LUNGS / PLEURA: Bibasilar pleural-parenchymal disease persists and may be slightly worse in the right lung base. Upper lung jerry are clear. ADDITIONAL FINDINGS: Bilateral supraclavicular subcutaneous emphysema persist unchanged. IMPRESSION: 1. Previously noted left pneumothorax has completely resolved following chest tube placement. 2. Previously noted right pneumothorax has nearly completely resolved following right chest tube plac ement. Tiny pneumothorax remains. 3. Persistent bibasilar pleural-parenchymal disease, slightly worse within the right lung base. Signer Name: Mandy Parkinson MD Signed: 12/12/2018 7:19 PM Workstation Name: [id number]
[2018-12-12] MEDS: DILAUDID IV PRN (20:36)
[2018-12-13] MEDS: DILAUDID IV PRN ×5 (01:57→20:21)
[2018-12-13] MEDS: DUONEB *Not for PRN Use IH SCH ×4 (02:23→20:55)
--- NOTE | 2018-12-13 10:31 | Progress Note ---
Assessment and Plan Assessment and plan: 18 with a history of asthma, Anxiety disorder, bipolar, ADHD similar to complaints of shortness of breath 2 days per the girlfriend at bedside. He also has a cough productive of green phlegm. The emergency room he was found to be started distress started on BiPAP, he improved but then later became hypoxic and was subsequently intubated. A review of system is unobtainable. * Per girlfriend at bedside, patient ran out of his Inhaler and recently lost his nebulizer machine. * Patient had a prior intubation about a year ago for Asthma exacerbation * Patient was extubated, CT chest showed signinfcation Pneumothorax. 2 small bore chest tube placed with good result CXR: Right lower lobe and probable right middle lobe atelectasis/postobstructive pneumonia. An endobronchial lesion/mucous plug should be considered. Aspiration is possible. CTA: IMPRESSION: 1. Small to moderate bilateral pneumothoraces without mediastinal shift. 2. Extensive pneumomediastinum and subcutaneous emphysema without a clear etiology. Renal US. IMPRESSION No acute sonographic abnormality of the kidneys. Acute respiratory failure with hypoxia s/p Intubation done in the ED now extubated Status Asthmaticus with Acute asthma exacerbation with bronchitis Pneumothoraces-Bilateral, small to moderate Extensive Pneumomediastinum and Subcutaneous Emphysema Bradycardia ?Result of possible tension penumothorax Pleuritic chest pain THC use disorder' Possible Mucus Plugging Tobacco use disorder Respiratory acidosis Possible Aspiration pneumonia ADHD Bipolar Anxiety disorder Leukocytosis Plan Continue supportive care Two small bore chest tube placed bilaterally. Near resolution of previously noted Pneumothorax, will repeat cxr today Management per Critical care team Pulmonary toilet Await echo cardiogram as patient still bradycardiac LABA and MARNIE Taper steroids Monitor Cultures Discussed with FAMILY AT BEDSIDE Again counselling on smoking cessation Discussed with Pulmonary team severity of Pnumotheroacis reviewed, Very helpfully in speaking with [place] transfer line, since unable to get accepting CTS at [facility]. [place] DECLINED Accepting patient, initially wanted insurance ve rification and late the cts stated to continue with planned chest tube and monitor. DVT/GI prophy Continue ICU care due to the severe nature of patients condition until complete resolution of Pneumothorax Hospitalist Physical - Physical exam Narrative exam: VITAL SIGNS: Reviewed. GENERAL: The patient appears normally developed, Vital signs as documented. HEAD: No signs of head trauma. EYES: Pupils are equal. Extraocular motions intact. EARS: Hearing grossly intact. MOUTH: Oropharynx is normal. NECK: No adenopathy, no JVD. CHEST: Chest with WHEEZING breath sounds bilaterally. Bilateral chest tube in place, No rales, or rhonchi. CARDIAC: Regular rate and rhythm. S1 and S2, without murmurs, gallops, or rubs. VASCULAR: No Edema. Peripheral pulses normal and equal in all extremities. ABDOMEN: Soft, non tender and non distended. No rebound or guarding, and no masses palpated. Bowel Sounds normal. MUSCULOSKELETAL: Good range of motion of all major joints. Extremities without clubbing, cyanosis or edema. NEUROLOGIC EXAM: Alert and oriented x 3 No focal sensory or strength deficits. Speech normal. Follows commands. PSYCHIATRIC: Mood normal. SKIN: detail exam as documented in skin assessment - Constitutional Vitals: Temp Pulse Resp BP Pulse Ox 98.1 F 74 20 130/85 98 12/13/18 04:00 12/13/18 08:05 12/13/18 08:05 12/13/18 06:00 12/13/18 07:52 Results - Labs CBC & Chem 7: 12/11/18 03:43 12/11/18 03:43 Labs: Laboratory Last Values WBC 13.7 K/mm3 (4.5-11.0) H 12/11/18 03:43 RBC 4.57 M/mm3 (3.65-5.03) 12/11/18 03:43 Hgb 12.9 gm/dl (11.8-15.2) 12/11/18 03:43 Hct 36.9 % (35.5-45.6) 12/11/18 03:43 MCV 81 fl (84-94) L 12/11/18 03:43 MCH 28 pg (28-32) 12/11/18 03:43 MCHC 35 % (32-34) H 12/11/18 03:43 RDW 14.0 % (13.2-15.2) 12/11/18 03:43 Plt Count 189 K/mm3 (140-440) 12/11/18 03:43 Lymph % (Auto) 11.6 % (13.4-35.0) L 12/09/18 23:10 [place] % (Auto) 6.1 % (0.0-7.3) 12/09/18 23:10 Eos % (Auto) 4.7 % (0.0-4.3) H 12/09/18 23:10 Baso % (Auto) 0.2 % (0.0-1.8) 12/09/18 23:10 Lymph # 1.2 K/mm3 (1.2-5.4) 12/09/18 23:10 [place] # 0.6 K/mm3 (0.0-0.8) 12/09/18 23:10 Eos # 0.5 K/mm3 (0.0-0.4) H 12/09/18 23:10 Baso # 0.0 K/mm3 (0.0-0.1) 12/09/18 23:10 Add Manual Diff Complete 12/10/18 04:56 Total Counted 100 12/10/18 04:56 Seg Neutrophils % 77.4 % (40.0-70.0) H 12/09/18 23:10 Seg Neuts % (Manual) 97.0 % (40.0-70.0) H 12/10/18 04:56 0 % 12/10/18 04:56 2.0 % (13.4-35.0) L 12/10/18 04:56 Reactive Lymphs % (Man) 0 % 12/10/18 04:56 1.0 % (0.0-7.3) 12/10/18 04:56 0 % (0.0-4.3) 12/10/18 04:56 0 % (0.0-1.8) 12/10/18 04:56 0 % 12/10/18 04:56 0 % 12/10/18 04:56 0 % 12/10/18 04:56 0 % 12/10/18 04:56 Nucleated RBC % Not Reportable 12/10/18 04:56 Seg Neutrophils # 7.9 K/mm3 (1.8-7.7) H 12/09/18 23:10 Seg Neutrophils # Man 11.8 K/mm3 (1.8-7.7) H 12/10/18 04:56 Band Neutrophils # 0.0 K/mm3 12/10/18 04:56 0.2 K/mm3 (1.2-5.4) L 12/10/18 04:56 Abs React Lymphs (Man) 0.0 K/mm3 12/10/18 04:56 0.1 K/mm3 (0.0-0.8) 12/10/18 04:56 0.0 K/mm3 (0.0-0.4) 12/10/18 04:56 0.0 K/mm3 (0.0-0.1) 12/10/18 04:56 0.0 K/mm3 12/10/18 04:56 0.0 K/mm3 12/10/18 04:56 0.0 K/mm3 12/10/18 04:56 Blast Cells # 0.0 K/mm3 12/10/18 04:56 WBC Morphology Not Reportable 12/10/18 04:56 Hypersegmented Neuts Not Reportable 12/10/18 04:56 Hyposegmented Neuts Not Reportable 12/10/18 04:56 Hypogranular Neuts Not Reportable 12/10/18 04:56 Not Reportable 12/10/18 04:56 Not Reportable 12/10/18 04:56 Not Reportable 12/10/18 04:56 Not Reportable 12/10/18 04:56 Not Reportable 12/10/18 04:56 Not Reportable 12/10/18 04:56 Consistent w auto 12/10/18 04:56 Not Reportable 12/10/18 04:56 Plt Clumps, EDTA Not Reportable 12/10/18 04:56 Not Reportable 12/10/18 04:56 Not Reportable 12/10/18 04:56 Not Reportable 12/10/18 04:56 Plt Morphology Comment Not Reportable 12/10/18 04:56 RBC Morphology Normal 12/10/18 04:56 Dimorphic RBCs Not Reportable 12/10/18 04:56 Not Reportable 12/10/18 04:56 Not Reportable 12/10/18 04:56 Not Reportable 12/10/18 04:56 Not Reportable 12/10/18 04:56 Not Reportable 12/10/18 04:56 Not Reportable 12/10/18 04:56 Not Reportable 12/10/18 04:56 Not Reportable 12/10/18 04:56 Not Reportable 12/10/18 04:56 Not Reportable 12/10/18 04:56 Not Reportable 12/10/18 04:56 Not Reportable 12/10/18 04:56 Not Reportable 12/10/18 04:56 Not Reportable 12/10/18 04:56 Not Reportable 12/10/18 04:56 Not Reportable 12/10/18 04:56 Not Reportable 12/10/18 04:56 Not Reportable 12/10/18 04:56 Not Reportable 12/10/18 04:56 Acanthocytes (Spur) Not Reportable 12/10/18 04:56 Rouleaux Not Reportable 12/10/18 04:56 Not Reportable 12/10/18 04:56 Not Reportable 12/10/18 04:56 Not Reportable 12/10/18 04:56 Not Reportable 12/10/18 04:56 Hem Pathologist Commnt No 12/10/18 04:56 POC ABG pH 7.325 (7.35-7.45) L 12/10/18 17:22 ABG pH 7.388 pH Units (7.350-7.450) 12/11/18 05:04 POC ABG pCO2 47.4 (35-45) H 12/10/18 17:22 ABG pCO2 43.0 mm Hg 12/11/18 05:04 POC ABG pO2 79 (80-105) L 12/10/18 17:22 ABG pO2 71.8 mm Hg (80.0-90.0) L 12/11/18 05:04 POC ABG HCO3 24.7 (22-26 mml/L) 12/10/18 17:22 ABG HCO3 25.3 mmol/L (20.0-26.0) 12/11/18 05:04 POC ABG Total CO2 26 (23-27mmol/L) 12/10/18 17:22 POC ABG O2 Sat 94 12/10/18 17:22 ABG O2 Saturation 95.1 % (95.0-99.0) 12/11/18 05:04 ABG O2 Content 19.8 (0.0-44) 12/11/18 05:04 POC ABG Base Excess -1 ((-2) - (+3)mmol/L) 12/10/18 17:22 ABG Base Excess 0.1 mmol/L (-2.0-3.0) 12/11/18 05:04 ABG Hemoglobin 11.9 gm/dl (14.0-18.0) L 12/11/18 05:04 ABG Carboxyhemoglobin 1.0 % (0.0-5.0) 12/11/18 05:04 ABG Methemoglobin 0.5 % (0.0-1.5) 12/11/18 05:04 93.7 % (95.0-99.0) L 12/11/18 05:04 55 % 12/11/18 05:04 Sodium 140 mmol/L (137-145) 12/11/18 03:43 Potassium 4.5 mmol/L (3.6-5.0) 12/11/18 03:43 Chloride 104.0 mmol/L (98-107) 12/11/18 03:43 Carbon Dioxide 24 mmol/L (22-30) 12/11/18 03:43 17 mmol/L 12/11/18 03:43 BUN 14 mg/dL (9-20) 12/11/18 03:43 0.8 mg/dL (0.8-1.5) 12/11/18 03:43 Estimated GFR > 60 ml/min 12/11/18 03:43 18 % 12/11/18 03:43 Glucose 153 mg/dL (75-100) H 12/11/18 03:43 POC Glucose 114 (70-105) H 12/11/18 17:28 Lactic Acid 1.80 mmol/L (0.7-2.0) 12/09/18 23:13 Calcium 8.4 mg/dL (8.4-10.2) 12/11/18 03:43 1.00 mg/dL (0.1-1.2) 12/09/18 23:10 AST 21 units/L (5-40) 12/09/18 23:10 ALT 13 units/L (7-56) 12/09/18 23:10 94 units/L (35-129) 12/09/18 23:10 1.30 mg/dL (0.00-1.30) 12/10/18 12:16 7.6 g/dL (6.3-8.2) 12/09/18 23:10 4.3 g/dL (3.9-5) 12/09/18 23:10 1.3 % 12/09/18 23:10 Yellow (Yellow) 12/09/18 02:19 Clear (Clear) 12/09/18 02:19 7.0 (5.0-7.0) 12/09/18 02:19 Ur Specific [place] 1.028 (1.003-1.030) 12/09/18 02:19 <15 mg/dl mg/dL (Negative) 12/09/18 02:19 Neg mg/dL (Negative) 12/09/18 02:19 Neg mg/dL (Negative) 12/09/18 02:19 Neg (Negative) 12/09/18 02:19 Neg (Negative) 12/09/18 02:19 Neg (Negative) 12/09/18 02:19 4.0 mg/dL (<2.0) 12/09/18 02:19 Ur Leukocyte Esterase Neg (Negative) 12/09/18 02:19 2.0 /HPF (0.0-6.0) 12/09/18 02:19 1.0 /HPF (0.0-6.0) 12/09/18 02:19 Few /HPF 12/09/18 02:19 Presumptive negative 12/09/18 22:45 Presumptive negative 12/09/18 22:45 Ur Barbiturates Screen Presumptive negative 12/09/18 22:45 Ur Phencyclidine Scrn Presumptive negative 12/09/18 22:45 Ur Amphetamines Screen Presumptive negative 12/09/18 22:45 U Benzodiazepines Scrn Presumptive negative 12/09/18 22:45 Presumptive negative 12/09/18 22:45 U Marijuana (THC) Screen Presumptive positive 12/09/18 22:45 Disclamer 12/09/18 22:45 Active Medications - Current Medications Current Medications: Generic Name Dose Route Start Last Admin Trade Name Freq PRN Reason Stop Dose Admin Albuterol 2.5 mg 12/12/18 14:20 Proventil IH Q4HRT PRN Shortness Of Breath Albuterol/Ipratropium 1 ampul 12/12/18 20:00 12/13/18 07:49 Duoneb *Not For Prn Use* IH 1 ampul Q6HRT KELLE Administration Hydromorphone HCl 0.25 mg 12/12/18 18:52 12/13/18 07:59 Dilaudid IV 0.25 mg Q3H PRN Administration Pain , Severe (7-10) Nutrition/Malnutrition Assess - Dietary Evaluation Nutrition/Malnutrition Findings: Nutrition Notes Start: 12/10/18 11:30 Freq: Status: Active Protocol: Document 12/13/18 10:08 LM (Rec: 12/13/18 10:19 LM [id number]) Nutrition Notes Initial or Follow up Reassessment Other Pertinent Diagnosis Asthma, respiratory acidosis, bipolar disorder, ARF, peach allergy Current Diet Regular diet Labs/Tests BG 153 Pertinent Medications Reviewed Height 5 ft 7 in Weight 61 kg [place] Body Weight (kg) 67.27 BMI 21.0 Subjective/Other Information Pt ate 50% of breakfast this morning. Pt stated that he has big appetite but does not like the food. Food preferences taken. Pt would like Ensure Enlive. Percent of energy/protein needs met: 62%/89% Burn Absent Trauma Absent #1 Nutrition Diagnosis Inadequate oral intake As Evidenced by Signs and Symptoms Pt eating 50% Diagnosis Progress(for reassessment Continues documentation) Is patient on ventilator? No Is Patient Ambulatory and/or Out of Bed No REE-([place]-St. Jeor-confined to bed) [phone] Calculation Used for Recommendations [place]-St Jeor Additional Notes Protein: 49-61g (0.8-1g/kg) Fluids: 1 ml/kcal Nutrition Intervention Change Diet Order: continue regular diet Add Supplement/Snack (indicate name/kcal Ensure Enlive Chocolate once a /protein ) day Provides kCal: 350 Provides Protein (gm) 20 Goal #1 Meet at least 75% of energy and protein needs Anticipated Discharge Needs: Regular diet Follow-Up By: 12/15/18 Additional Comments F/U for PO/ONS intakes
--- NOTE | 2018-12-13 11:08 | XRay Report ---
CHEST 1 VIEW INDICATION: PNEUMOTHORAX. COMPARISON: One day prior. FINDINGS: Support devices: Unchanged. Heart: Stable. Lungs/Pleura: No pneumothorax is seen bilaterally. Bibasilar opacities have improved. Soft tissue gas in the bilateral supraclavicular regions has improved. IMPRESSION: 1. No residual pneumothorax is seen. Bibasilar opacities have improved. Signer Name: Dionisio Rodrigues MD Signed: 12/13/2018 11:04 AM Workstation Name: [id number]
--- NOTE | 2018-12-13 12:15 | Progress Note ---
Assessment and Plan Acute respiratory failure s/p Intubation done in the ED Acute Bilateral Pneumomediastinum Acute Bilateral Pneumothoraces Status Asthmaticus with Acute asthma exacerbation with bronchitis THC use disorder' Possible Mucus Plugging Tobacco use disorder Respiratory acidosis Possible Aspiration pneumonia ADHD Bipolar Anxiety disorder Leukocytosis (CT chest from yesterday suggest mild right shift of mediastinum; patient appear s clinically stable at this point but may decompensate suddenly and tentatively bradyarrythmia may be related to early tension) - surgery to place left chest tube (Input greatly appreciated) - will initiaite transfer to center with a cardiothoracic surgeon - supplemental oxygen to aid resorption (100% FiO2 via NRB) - hold transfer out of ICU - avoid positive pressure ventilation - cardiology evaluation ongoing (2D ECHO ordered) - advance diet as tolerated but NPO for chest tube now - Accucheck with glycemic control, target blood glucose <180 mg/dL - VTE prophylaxis - Stress ulcer prophylaxis - continue systemic steroid taper - continue Bronchodilators with pulmonary hygiene per RT - Follow up cultures - continue other care per attending / other consultants ..... re-evaluate in am & prn CONDITION: CRITICAL PROGNOSIS: FAIR CODE STATUS: FULL CODE I have spent ( >35 ) minutes with the patient w/ >50% of the time spent counseling and/or coordinating care for this patient. Counseling topics and/or how time was spent coordinating patient's care is outlined in the impression and plan above. Subjective Date of service: 12/13/18 Principal diagnosis: Ac hypoxemic resp failure; Status Asthmaticus; bilateral pneumothoraces Interval history: Patient is seen today for: Acute respiratory failure on MVS; Status Asthmaticus; Acute asthma exacerbation with bronchitis Seen and examined at bedside; 24hour events reviewed; nursing and respiratory care staff consulted; no adverse overnight events reported to me; resting peacefully in bed Objective Vital Signs - 12hr 12/13/18 12/13/18 12/13/18 01:00 02:00 02:25 Temperature Pulse Rate 46 L 50 L Pulse Rate [ 44 L Throughout] Respiratory 22 14 Rate Respiratory 12 Rate [ Throughout] Blood Pressure 133/85 144/96 O2 Sat by Pulse 95 98 Oximetry 12/13/18 12/13/18 12/13/18 03:00 04:00 05:01 Temperature 98.1 F Pulse Rate 50 L 49 L 46 L Pulse Rate [ Throughout] Respiratory 12 11 L 16 Rate Respiratory Rate [ Throughout] Blood Pressure 132/81 130/77 127/82 O2 Sat by Pulse 98 95 98 Oximetry 12/13/18 12/13/18 12/13/18 06:00 07:01 07:52 Temperature Pulse Rate 47 L 45 L Pulse Rate [ Throughout] Respiratory 13 17 Rate Respiratory Rate [ Throughout] Blood Pressure 130/85 134/86 O2 Sat by Pulse 99 99 98 Oximetry 12/13/18 12/13/18 12/13/18 08:00 08:05 09:00 Temperature 97.7 F Pulse Rate 58 L 53 L Pulse Rate [ 74 Throughout] Respiratory 16 10 L Rate Respiratory 20 Rate [ Throughout] Blood Pressure 128/84 123/71 O2 Sat by Pulse 97 93 Oximetry 12/13/18 12/13/18 10:00 11:00 Temperature Pulse Rate 61 50 L Pulse Rate [ Throughout] Respiratory 13 16 Rate Respiratory Rate [ Throughout] Blood Pressure 126/72 119/72 O2 Sat by Pulse 95 95 Oximetry Constitutional: no acute distress, alert, other (young AAM, normocephalic and atraumatic with normal respiratory effort at rest) Eyes: non-icteric ENT: oropharynx moist Neck: supple, no lymphadenopathy, no JVD, other (+ Sub-Q emphysema to lower righ t neck) Effort: normal Ascultation: Bilateral: clear, diminished breath sounds Percussion: Bilateral: not dull Cardiovascular: regular rate and rhythm, other (bradycardia) Gastrointestinal: normoactive bowel sounds, soft, non-tender, non-distended Integumentary: normal Extremities: no cyanosis, no edema, pulses normal, no ischemia or petechiae Neurologic: normal mental status, non-focal exam, pupils equal and round, motor strength normal and Psychiatric: mood appropriate, affect normal CBC and BMP: 12/11/18 03:43 12/11/18 03:43 ABG, PT/INR, D-dimer: ABG POC ABG pH 7.325 (7.35-7.45) L 12/10/18 17:22 ABG pH 7.388 pH Units (7.350-7.450) 12/11/18 05:04 POC ABG pCO2 47.4 (35-45) H 12/10/18 17:22 ABG pCO2 43.0 mm Hg 12/11/18 05:04 POC ABG pO2 79 (80-105) L 12/10/18 17:22 ABG pO2 71.8 mm Hg (80.0-90.0) L 12/11/18 05:04 POC ABG HCO3 24.7 (22-26 mml/L) 12/10/18 17:22 POC ABG Total CO2 26 (23-27mmol/L) 12/10/18 17:22 POC ABG O2 Sat 94 12/10/18 17:22 ABG O2 Saturation 95.1 % (95.0-99.0) 12/11/18 05:04 Abnormal lab findings: Abnormal Labs 12/09/18 12/09/18 12/10/18 23:10 23:10 04:56 WBC 12.2 H RBC 5.22 H MCV 83 L 83 L MCHC Lymph % (Auto) 11.6 L Eos % (Auto) 4.7 H Eos # 0.5 H Seg Neutrophils % 77.4 H Seg Neuts % (Manual) 97.0 H Lymphocytes % (Manual) 2.0 L Seg Neutrophils # 7.9 H Seg Neutrophils # Man 11.8 H Lymphocytes # (Manual) 0.2 L POC ABG pH ABG pH POC ABG pCO2 POC ABG pO2 ABG pO2 ABG O2 Saturation ABG Base Excess ABG Hemoglobin Oxyhemoglobin Carbon Dioxide Creatinine 0.7 L Glucose POC Glucose Calcium 12/10/18 12/10/18 12/10/18 04:56 05:10 08:30 WBC RBC MCV MCHC Lymph % (Auto) Eos % (Auto) Eos # Seg Neutrophils % Seg Neuts % (Manual) Lymphocytes % (Manual) Seg Neutrophils # Seg Neutrophils # Man Lymphocytes # (Manual) POC ABG pH ABG pH 7.269 L 7.318 L POC ABG pCO2 POC ABG pO2 ABG pO2 58.8 L ABG O2 Saturation 88.3 L ABG Base Excess -4.3 L -3.4 L ABG Hemoglobin 13.8 L 13.0 L Oxyhemoglobin 93.6 L 86.8 L Carbon Dioxide 20 L Creatinine Glucose 132 H POC Glucose Calcium 8.1 L 12/10/18 12/10/18 12/10/18 11:04 17:22 Unknown WBC RBC MCV MCHC Lymph % (Auto) Eos % (Auto) Eos # Seg Neutrophils % Seg Neuts % (Manual) Lymphocytes % (Manual) Seg Neutrophils # Seg Neutrophils # Man Lymphocytes # (Manual) POC ABG pH 7.325 L ABG pH 7.285 L POC ABG pCO2 47.4 H POC ABG pO2 79 L ABG pO2 195.2 H ABG O2 Saturation 99.1 H ABG Base Excess -3.9 L ABG Hemoglobin Oxyhemoglobin Carbon Dioxide Creatinine Glucose POC Glucose 146 H Calcium 12/10/18 12/11/18 12/11/18 Unknown 03:43 03:43 WBC 13.7 H RBC MCV 81 L MCHC 35 H Lymph % (Auto) Eos % (Auto) Eos # Seg Neutrophils % Seg Neuts % (Manual) Lymphocytes % (Manual) Seg Neutrophils # Seg Neutrophils # Man Lymphocytes # (Manual) POC ABG pH ABG pH 7.327 L POC ABG pCO2 POC ABG pO2 ABG pO2 74.8 L ABG O2 Saturation 94.7 L ABG Base Excess ABG Hemoglobin 13.7 L Oxyhemoglobin 93.1 L Carbon Dioxide Creatinine Glucose 153 H POC Glucose Calcium 12/11/18 12/11/18 05:04 17:28 WBC RBC MCV MCHC Lymph % (Auto) Eos % (Auto) Eos # Seg Neutrophils % Seg Neuts % (Manual) Lymphocytes % (Manual) Seg Neutrophils # Seg Neutrophils # Man Lymphocytes # (Manual) POC ABG pH ABG pH POC ABG pCO2 POC ABG pO2 ABG pO2 71.8 L ABG O2 Saturation ABG Base Excess ABG Hemoglobin 11.9 L Oxyhemoglobin 93.7 L Carbon Dioxide Creatinine Glucose POC Glucose 114 H Calcium Allied health notes reviewed: nursing
[2018-12-13] MEDS: PEPCID PO SCH (14:34)
[2018-12-13] MEDS ORDERED: MORPHINE IV ONE (15:00)
--- NOTE | 2018-12-13 15:26 | XRay Report ---
CHEST 1 VIEW 3:06 PM INDICATION: Chest pain. COMPARISON: Earlier the same day FINDINGS: Support devices: Unchanged. Heart: Stable. Lungs/Pleura: No pneumothorax is seen. There are mild atelectatic changes in the bases, greater on th e right. No significant pleural effusion. IMPRESSION: 1. No significant change. Signer Name: Dionisio Rodrigues MD Signed: 12/13/2018 3:21 PM Workstation Name: [id number]
[2018-12-13] MEDS: TORADOL IV PRN (16:50)
--- NOTE | 2018-12-13 17:05 | Progress Note ---
Assessment and Plan - Patient Problems (1) Bilateral pneumothorax Current Visit: Yes Status: Acute Plan to address problem: Pt stable. Oxygenation has improved. Chest x-ray shows resolution of pneumothoraces. The left chest tube has been placed on waterseal by the ICU team. If tomorrow's chest x-ray continues to show no pneumothorax on the left, consideration could be given to removing the chest tube as it is causing the patient a fair amount of discomfort. Please call with questions. Time=10min Subjective Date of service: 12/13/18 Patient Reports: Positive: still having pain ("all over the chest") Objective Vital Signs - 12hr 12/13/18 12/13/18 12/13/18 06:00 07:01 07:52 Temperature Pulse Rate 47 L 45 L Pulse Rate [ From Monitor] Pulse Rate [ Throughout] Respiratory 13 17 Rate Respiratory Rate [ Throughout] Blood Pressure 130/85 134/86 O2 Sat by Pulse 99 99 98 Oximetry 12/13/18 12/13/18 12/13/18 08:00 08:05 09:00 Temperature 97.7 F Pulse Rate 58 L 53 L Pulse Rate [ From Monitor] Pulse Rate [ 74 Throughout] Respiratory 16 10 L Rate Respiratory 20 Rate [ Throughout] Blood Pressure 128/84 123/71 O2 Sat by Pulse 97 93 Oximetry 12/13/18 12/13/18 12/13/18 10:00 11:00 12:00 Temperature 97.1 F L Pulse Rate 61 50 L 55 L Pulse Rate [ 55 L From Monitor] Pulse Rate [ Throughout] Respiratory 13 16 17 Rate Respiratory Rate [ Throughout] Blood Pressure 126/72 119/72 116/73 O2 Sat by Pulse 95 95 92 Oximetry 12/13/18 12/13/18 12/13/18 13:01 13:10 13:25 Temperature Pulse Rate 53 L Pulse Rate [ From Monitor] Pulse Rate [ 75 Throughout] Respiratory 14 Rate Respiratory 20 Rate [ Throughout] Blood Pressure 127/79 O2 Sat by Pulse 91 93 Oximetry 12/13/18 12/13/18 12/13/18 14:00 15:00 16:00 Temperature 98.1 F Pulse Rate 60 63 55 L Pulse Rate [ 56 L From Monitor] Pulse Rate [ Throughout] Respiratory 16 15 18 Rate Respiratory Rate [ Throughout] Blood Pressure 132/80 134/84 136/89 O2 Sat by Pulse 91 95 93 Oximetry - General physical appearance no distress, moderate pain, other (appeared ok before I entered the room) - Eyes normal occular movement - Respiratory normal expansion, normal respiratory effort, other (down to nasal cannula from non-rebreather. Both CTs in place. Left has been placed on waterseal) - Integumentary no rash, no growths, no abnormal pigmentation - Psychiatric oriented to time, oriented to person, oriented to place, speech is normal, memory intact - Labs 12/11/18 03:43 12/11/18 03:43
[2018-12-13] MEDS: LOVENOX SUB-Q SCH (23:00)
[2018-12-14] MEDS: TORADOL IV PRN ×3 (02:42→21:05)
[2018-12-14] MEDS: DUONEB *Not for PRN Use IH SCH ×3 (02:45→14:57)
[2018-12-14] MEDS: DILAUDID IV PRN ×2 (05:56→11:47)
--- NOTE | 2018-12-14 08:23 | Progress Note ---
Assessment and Plan Assessment and plan: 18 with a history of asthma, Anxiety disorder, bipolar, ADHD similar to complaints of shortness of breath 2 days per the girlfriend at bedside. He also has a cough productive of green phlegm. The emergency room he was found to be started distress started on BiPAP, he improved but then later became hypoxic and was subsequently intubated. A review of system is unobtainable. * Per girlfriend at bedside, patient ran out of his Inhaler and recently lost his nebulizer machine. * Patient had a prior intubation about a year ago for Asthma exacerbation * Patient was extubated, CT chest showed signinfcation Pneumothorax. 2 small bore chest tube placed with good result CXR: Right lower lobe and probable right middle lobe atelectasis/postobstructive pneumonia. An endobronchial lesion/mucous plug should be considered. Aspiration is possible. CTA: IMPRESSION: 1. Small to moderate bilateral pneumothoraces without mediastinal shift. 2. Extensive pneumomediastinum and subcutaneous emphysema without a clear etiology. Renal US. IMPRESSION No acute sonographic abnormality of the kidneys. --Acute respiratory failure with hypoxia s/p Intubation done in the ED now extubated Continue oxygen titrated O2 sats to more than 90% and supportive care --Status Asthmaticus with Acute asthma exacerbation with bronchitis Oxygen nebulizers. Supportive care --Bilateral Pneumothoraces-small to moderate s/p jairo chest tube placement, pulmonary surgery following Continue current management --Extensive Pneumomediastinum and Subcutaneous Emphysema Supportive care --Sinus Bradycardia: Present on admission ?Result of possible tension penumothorax HR ranges in 50s and 60s now. Continue supportive care --Pleuritic chest pain; and management, incentive spirometry Pulmonary following --THC use disorder'; advised to quit recreational drug use --Ongoing Tobacco use disorder; smoking cessation advised Nicotine patch if needed --Respiratory acidosis --Possible Aspiration pneumonia; empiric antibiotics Supportive care --h/o ADHD/bipolar/anxiety disorder; Psychiatric evaluation as needed --DVT prophylaxis; Lovenox Monitor closely and adjust management as needed Consults and recommendations noted and appreciated Plan of care reviewed with the patient, snowance at the bedside Patient's nurse and case management Critical care time 33 minutes; History Interval history: Patient seen and examined this morning medical records reviewed Patient's fianc was at the bedside Patient complains of some pain in the chest while breathing Alert awake oriented 3 Vital signs noted Hospitalist Physical - Constitutional Vitals: Temp Pulse Resp BP Pulse Ox 97.7 F 68 9 L 117/76 97 12/14/18 02:59 12/14/18 08:00 12/14/18 08:00 12/14/18 08:00 12/14/18 08:00 General appearance: Present: no acute distress, well-nourished - EENT Eyes: Present: PERRL, EOM intact - Neck Neck: Present: supple, normal ROM - Respiratory Respiratory effort: normal Respiratory: bilateral: diminished, rhonchi, negative: rales, wheezing - Cardiovascular Rhythm: regular Heart Sounds: Present: S1 & S2 (bradycardia) - Extremities Extremities: no ischemia, No edema - Abdominal General gastrointestinal: soft, non-tender, non-distended, normal bowel sounds - Integumentary Integumentary: Present: clear, warm - Psychiatric Psychiatric: appropriate mood/affect, cooperative - Neurologic Neurologic: CNII-XII intact, moves all extremities Results - Labs CBC & Chem 7: 12/11/18 03:43 12/11/18 03:43 Labs: Laboratory Last Values WBC 13.7 K/mm3 (4.5-11.0) H 12/11/18 03:43 RBC 4.57 M/mm3 (3.65-5.03) 12/11/18 03:43 Hgb 12.9 gm/dl (11.8-15.2) 12/11/18 03:43 Hct 36.9 % (35.5-45.6) 12/11/18 03:43 MCV 81 fl (84-94) L 12/11/18 03:43 MCH 28 pg (28-32) 12/11/18 03:43 MCHC 35 % (32-34) H 12/11/18 03:43 RDW 14.0 % (13.2-15.2) 12/11/18 03:43 Plt Count 189 K/mm3 (140-440) 12/11/18 03:43 Lymph % (Auto) 11.6 % (13.4-35.0) L 12/09/18 23:10 [place] % (Auto) 6.1 % (0.0-7.3) 12/09/18 23:10 Eos % (Auto) 4.7 % (0.0-4.3) H 12/09/18 23:10 Baso % (Auto) 0.2 % (0.0-1.8) 12/09/18 23:10 Lymph # 1.2 K/mm3 (1.2-5.4) 12/09/18 23:10 [place] # 0.6 K/mm3 (0.0-0.8) 12/09/18 23:10 Eos # 0.5 K/mm3 (0.0-0.4) H 12/09/18 23:10 Baso # 0.0 K/mm3 (0.0-0.1) 12/09/18 23:10 Add Manual Diff Complete 12/10/18 04:56 Total Counted 100 12/10/18 04:56 Seg Neutrophils % 77.4 % (40.0-70.0) H 12/09/18 23:10 Seg Neuts % (Manual) 97.0 % (40.0-70.0) H 12/10/18 04:56 0 % 12/10/18 04:56 2.0 % (13.4-35.0) L 12/10/18 04:56 Reactive Lymphs % (Man) 0 % 12/10/18 04:56 1.0 % (0.0-7.3) 12/10/18 04:56 0 % (0.0-4.3) 12/10/18 04:56 0 % (0.0-1.8) 12/10/18 04:56 0 % 12/10/18 04:56 0 % 12/10/18 04:56 0 % 12/10/18 04:56 0 % 12/10/18 04:56 Nucleated RBC % Not Reportable 12/10/18 04:56 Seg Neutrophils # 7.9 K/mm3 (1.8-7.7) H 12/09/18 23:10 Seg Neutrophils # Man 11.8 K/mm3 (1.8-7.7) H 12/10/18 04:56 Band Neutrophils # 0.0 K/mm3 12/10/18 04:56 0.2 K/mm3 (1.2-5.4) L 12/10/18 04:56 Abs React Lymphs (Man) 0.0 K/mm3 12/10/18 04:56 0.1 K/mm3 (0.0-0.8) 12/10/18 04:56 0.0 K/mm3 (0.0-0.4) 12/10/18 04:56 0.0 K/mm3 (0.0-0.1) 12/10/18 04:56 0.0 K/mm3 12/10/18 04:56 0.0 K/mm3 12/10/18 04:56 0.0 K/mm3 12/10/18 04:56 Blast Cells # 0.0 K/mm3 12/10/18 04:56 WBC Morphology Not Reportable 12/10/18 04:56 Hypersegmented Neuts Not Reportable 12/10/18 04:56 Hyposegmented Neuts Not Reportable 12/10/18 04:56 Hypogranular Neuts Not Reportable 12/10/18 04:56 Not Reportable 12/10/18 04:56 Not Reportable 12/10/18 04:56 Not Reportable 12/10/18 04:56 Not Reportable 12/10/18 04:56 Not Reportable 12/10/18 04:56 Not Reportable 12/10/18 04:56 Consistent w auto 12/10/18 04:56 Not Reportable 12/10/18 04:56 Plt Clumps, EDTA Not Reportable 12/10/18 04:56 Not Reportable 12/10/18 04:56 Not Reportable 12/10/18 04:56 Not Reportable 12/10/18 04:56 Plt Morphology Comment Not Reportable 12/10/18 04:56 RBC Morphology Normal 12/10/18 04:56 Dimorphic RBCs Not Reportable 12/10/18 04:56 Not Reportable 12/10/18 04:56 Not Reportable 12/10/18 04:56 Not Reportable 12/10/18 04:56 Not Reportable 12/10/18 04:56 Not Reportable 12/10/18 04:56 Not Reportable 12/10/18 04:56 Not Reportable 12/10/18 04:56 Not Reportable 12/10/18 04:56 Not Reportable 12/10/18 04:56 Not Reportable 12/10/18 04:56 Not Reportable 12/10/18 04:56 Not Reportable 12/10/18 04:56 Not Reportable 12/10/18 04:56 Not Reportable 12/10/18 04:56 Not Reportable 12/10/18 04:56 Not Reportable 12/10/18 04:56 Not Reportable 12/10/18 04:56 Not Reportable 12/10/18 04:56 Not Reportable 12/10/18 04:56 Acanthocytes (Spur) Not Reportable 12/10/18 04:56 Rouleaux Not Reportable 12/10/18 04:56 Not Reportable 12/10/18 04:56 Not Reportable 12/10/18 04:56 Not Reportable 12/10/18 04:56 Not Reportable 12/10/18 04:56 Hem Pathologist Commnt No 12/10/18 04:56 POC ABG pH 7.325 (7.35-7.45) L 12/10/18 17:22 ABG pH 7.388 pH Units (7.350-7.450) 12/11/18 05:04 POC ABG pCO2 47.4 (35-45) H 12/10/18 17:22 ABG pCO2 43.0 mm Hg 12/11/18 05:04 POC ABG pO2 79 (80-105) L 12/10/18 17:22 ABG pO2 71.8 mm Hg (80.0-90.0) L 12/11/18 05:04 POC ABG HCO3 24.7 (22-26 mml/L) 12/10/18 17:22 ABG HCO3 25.3 mmol/L (20.0-26.0) 12/11/18 05:04 POC ABG Total CO2 26 (23-27mmol/L) 12/10/18 17:22 POC ABG O2 Sat 94 12/10/18 17:22 ABG O2 Saturation 95.1 % (95.0-99.0) 12/11/18 05:04 ABG O2 Content 19.8 (0.0-44) 12/11/18 05:04 POC ABG Base Excess -1 ((-2) - (+3)mmol/L) 12/10/18 17:22 ABG Base Excess 0.1 mmol/L (-2.0-3.0) 12/11/18 05:04 ABG Hemoglobin 11.9 gm/dl (14.0-18.0) L 12/11/18 05:04 ABG Carboxyhemoglobin 1.0 % (0.0-5.0) 12/11/18 05:04 ABG Methemoglobin 0.5 % (0.0-1.5) 12/11/18 05:04 93.7 % (95.0-99.0) L 12/11/18 05:04 55 % 12/11/18 05:04 Sodium 140 mmol/L (137-145) 12/11/18 03:43 Potassium 4.5 mmol/L (3.6-5.0) 12/11/18 03:43 Chloride 104.0 mmol/L (98-107) 12/11/18 03:43 Carbon Dioxide 24 mmol/L (22-30) 12/11/18 03:43 17 mmol/L 12/11/18 03:43 BUN 14 mg/dL (9-20) 12/11/18 03:43 0.8 mg/dL (0.8-1.5) 12/11/18 03:43 Estimated GFR > 60 ml/min 12/11/18 03:43 18 % 12/11/18 03:43 Glucose 153 mg/dL (75-100) H 12/11/18 03:43 POC Glucose 114 (70-105) H 12/11/18 17:28 Lactic Acid 1.80 mmol/L (0.7-2.0) 12/09/18 23:13 Calcium 8.4 mg/dL (8.4-10.2) 12/11/18 03:43 1.00 mg/dL (0.1-1.2) 12/09/18 23:10 AST 21 units/L (5-40) 12/09/18 23:10 ALT 13 units/L (7-56) 12/09/18 23:10 94 units/L (35-129) 12/09/18 23:10 < 0.010 ng/mL (0.00-0.029) 12/13/18 15:25 1.30 mg/dL (0.00-1.30) 12/10/18 12:16 7.6 g/dL (6.3-8.2) 12/09/18 23:10 4.3 g/dL (3.9-5) 12/09/18 23:10 1.3 % 12/09/18 23:10 Yellow (Yellow) 12/09/18 02:19 Clear (Clear) 12/09/18 02:19 7.0 (5.0-7.0) 12/09/18 02:19 Ur Specific [place] 1.028 (1.003-1.030) 12/09/18 02:19 <15 mg/dl mg/dL (Negative) 12/09/18 02:19 Neg mg/dL (Negative) 12/09/18 02:19 Neg mg/dL (Negative) 12/09/18 02:19 Neg (Negative) 12/09/18 02:19 Neg (Negative) 12/09/18 02:19 Neg (Negative) 12/09/18 02:19 4.0 mg/dL (<2.0) 12/09/18 02:19 Ur Leukocyte Esterase Neg (Negative) 12/09/18 02:19 2.0 /HPF (0.0-6.0) 12/09/18 02:19 1.0 /HPF (0.0-6.0) 12/09/18 02:19 Few /HPF 12/09/18 02:19 Presumptive negative 12/09/18 22:45 Presumptive negative 12/09/18 22:45 Ur Barbiturates Screen Presumptive negative 12/09/18 22:45 Ur Phencyclidine Scrn Presumptive negative 12/09/18 22:45 Ur Amphetamines Screen Presumptive negative 12/09/18 22:45 U Benzodiazepines Scrn Presumptive negative 12/09/18 22:45 Presumptive negative 12/09/18 22:45 U Marijuana (THC) Screen Presumptive positive 12/09/18 22:45 Disclamer 12/09/18 22:45 Active Medications - Current Medications Current Medications: Generic Name Dose Route Start Last Admin Trade Name Freq PRN Reason Stop Dose Admin Albuterol 2.5 mg 12/12/18 14:20 Proventil IH Q4HRT PRN Shortness Of Breath Albuterol/Ipratropium 1 ampul 12/12/18 20:00 12/14/18 02:45 Duoneb *Not For Prn Use* IH 1 ampul Q6HRT KELLE Administration Enoxaparin Sodium 40 mg 12/13/18 22:00 12/13/18 23:00 Lovenox SUB-Q 40 mg QDAY@2200 KELLE Administration Famotidine 20 mg 12/13/18 14:00 12/13/18 14:34 Pepcid PO 20 mg DAILY KELLE Administration Hydromorphone HCl 0.5 mg 12/13/18 14:00 12/14/18 05:56 Dilaudid IV 0.5 mg Q4H PRN Administration Pain , Severe (7-10) Ketorolac Tromethamine 30 mg 12/13/18 16:33 12/14/18 02:42 Toradol IV 30 mg Q6H PRN Administration Pain, Moderate (4-6) Oxycodone/Acetaminophen 1 tab 12/13/18 17:24 Percocet 5/325 PO Q6H PRN Pain, Moderate (4-6) Nutrition/Malnutrition Assess - Dietary Evaluation Nutrition/Malnutrition Findings: Nutrition Notes Start: 12/10/18 11:30 Freq: Status: Active Protocol: Document 12/13/18 10:08 LM (Rec: 12/13/18 10:19 LM [id number]) Nutrition Notes Initial or Follow up Reassessment Other Pertinent Diagnosis Asthma, respiratory acidosis, bipolar disorder, ARF, peach allergy Current Diet Regular diet Labs/Tests BG 153 Pertinent Medications Reviewed Height 5 ft 7 in Weight 61 kg [place] Body Weight (kg) 67.27 BMI 21.0 Subjective/Other Information Pt ate 50% of breakfast this morning. Pt stated that he has big appetite but does not like the food. Food preferences taken. Pt would like Ensure Enlive. Percent of energy/protein needs met: 62%/89% Burn Absent Trauma Absent #1 Nutrition Diagnosis Inadequate oral intake As Evidenced by Signs and Symptoms Pt eating 50% Diagnosis Progress(for reassessment Continues documentation) Is patient on ventilator? No Is Patient Ambulatory and/or Out of Bed No REE-([facility]-confined to bed) 5250.333 Calculation Used for Recommendations [facility] Additional Notes Protein: 49-61g (0.8-1g/kg) Fluids: 1 ml/kcal Nutrition Intervention Change Diet Order: continue regular diet Add Supplement/Snack (indicate name/kcal Ensure Enlive Chocolate once a /protein ) day Provides kCal: 350 Provides Protein (gm) 20 Goal #1 Meet at least 75% of energy and protein needs Anticipated Discharge Needs: Regular diet Follow-Up By: 12/15/18 Additional Comments F/U for PO/ONS intakes
--- NOTE | 2018-12-14 09:33 | Progress Note ---
Assessment and Plan - Patient Problems (1) Bilateral pneumothorax Current Visit: Yes Status: Acute Plan to address problem: Pt stable. Pt looks better today. Oxygenation has improved. Chest x-ray shows resolution of pneumothoraces. The left chest tube has been placed on waterseal by the ICU team. I have clamped the left chest tube. Asked the nurse to contact radiology for a CXR in 3 hours. If there is no PTX on the left at that time, then will remove the tube. If the right also looks good, will waterseal the right side. Please call with questions. Time=10min Subjective Date of service: 12/14/18 Patient Reports: Positive: no new complaints, feels better, still having pain Objective Vital Signs - 12hr 12/13/18 12/13/18 12/13/18 22:00 23:00 23:40 Temperature 98.5 F Pulse Rate 67 49 L Pulse Rate [ Bilateral Throughout] Pulse Rate [ From Monitor] Respiratory 18 12 Rate Respiratory Rate [Bilateral Throughout] Blood Pressure 113/71 117/64 O2 Sat by Pulse 98 94 Oximetry 12/13/18 12/13/18 12/14/18 23:43 23:55 00:00 Temperature Pulse Rate 49 L 58 L 54 L Pulse Rate [ Bilateral Throughout] Pulse Rate [ 55 L From Monitor] Respiratory 14 14 Rate Respiratory Rate [Bilateral Throughout] Blood Pressure 117/64 117/62 O2 Sat by Pulse 98 98 Oximetry 12/14/18 12/14/18 12/14/18 01:01 02:00 02:45 Temperature Pulse Rate 55 L 57 L Pulse Rate [ 59 L Bilateral Throughout] Pulse Rate [ From Monitor] Respiratory 21 14 Rate Respiratory 16 Rate [Bilateral Throughout] Blood Pressure 121/66 118/70 O2 Sat by Pulse 96 96 Oximetry 12/14/18 12/14/18 12/14/18 02:59 03:00 04:00 Temperature 97.7 F Pulse Rate 66 65 Pulse Rate [ Bilateral Throughout] Pulse Rate [ 69 From Monitor] Respiratory 15 14 Rate Respiratory Rate [Bilateral Throughout] Blood Pressure 123/72 119/68 O2 Sat by Pulse 96 97 Oximetry 12/14/18 12/14/18 12/14/18 05:00 06:00 07:00 Temperature Pulse Rate 58 L 65 58 L Pulse Rate [ Bilateral Throughout] Pulse Rate [ From Monitor] Respiratory 18 15 16 Rate Respiratory Rate [Bilateral Throughout] Blood Pressure 122/77 123/76 121/67 O2 Sat by Pulse 97 94 97 Oximetry 12/14/18 12/14/18 08:00 08:49 Temperature Pulse Rate 68 Pulse Rate [ 54 L Bilateral Throughout] Pulse Rate [ From Monitor] Respiratory 9 L Rate Respiratory 18 Rate [Bilateral Throughout] Blood Pressure 117/76 O2 Sat by Pulse 97 100 Oximetry - General physical appearance no distress, no pain, other (looks more comfortable. Watching TV and laughing at times. ) - Eyes normal occular movement - Respiratory normal expansion, normal respiratory effort, other (no air leak seen in left chest tube. Clamped it during exam. ) - Psychiatric oriented to time, oriented to person, oriented to place, speech is normal, memory intact - Labs 12/11/18 03:43 12/11/18 03:43
[2018-12-14] MEDS: PEPCID PO SCH (10:54)
--- NOTE | 2018-12-14 12:10 | XRay Report ---
CHEST - 1 VIEW INDICATION: Assess PTX post - chest tubes day 2 COMPARISON: Yesterday FINDINGS: Support devices: Left-sided pleural catheter has been removed. Heart: Stable cardiomediastinal silhouette. Lungs/pleura: No pneumothorax identified. There is mild residual bibasilar atelectasis with small la yering effusion on the right. Additional findings: None. IMPRESSION: 1. Left-sided pleural catheter removal. No appreciable residual pneumothorax. 2. Small right-sided layering pleural effusion and mild bibasilar atelectasis. Signer Name: Varun Ellis MD Signed: 12/14/2018 12:05 PM Workstation Name: [id number]
--- NOTE | 2018-12-14 13:14 | Event Note ---
Date: 12/14/18 I reviewed the chest x-ray earlier and immediately went to see the patient when I saw the images and report of the left chest tube already being out. Thankfully, the staff had regarding put an occlusive dressing over that site. Patient was stable. Having no breathing difficulty. He does not know the tube came out. I explained to them that there is fluid on the right side and I would recommend leaving the tube in longer until that improves. I defer to pulmonary if they have a different plan. I explained the importance of incentive spirometry. When I handed him the incentive spirometer, he said he couldn't move because of the pain. When I explained he should have no reason for pain on the left side since his catheter is out, he then began to move his left side. He made a very, very poor effort with incentive spirometry. I get the impression that he does not want to make any effort and he is wanting his family to do everything for him.
--- NOTE | 2018-12-14 13:27 | Event Note ---
Date: 12/14/18 Left chest tube inardvertently dislodged No Pneumothorax seen. - vaseline gauze dressing to right chest tube stoma - care plan discussed with surgeon; will continue wall suction overnight re: pleural effusion - repeat CXR in AM
--- NOTE | 2018-12-14 14:08 | Progress Note ---
Assessment and Plan Patient awake and resting on 4L of O2. No acute respiratory distress at this time. O2 saturation 94%. Afebrile. Mild leukocytosis. Patient's last ABG 12/11/18 pH 7.38, PCO2 43, Bicarb 25.3, PO2 71.8, O2 saturation 95.1% on FIO2 55. Patient's left chest tube came out today. Chest XRAY 12/14/18 report after chest tube removal: FINDINGS: Support devices: Left-sided pleural catheter has been removed. Heart: Stable cardiomediastinal silhouette. Lungs/pleura: No pneumothorax identified. There is mild residual bibasilar atelectasis with small layering effusion on the right. Additional findings: None. IMPRESSION: 1. Left- sided pleural catheter removal. No appreciable residual pneumothorax. 2. Small right-sided layering pleural effusion and mild bibasilar atelectasis. - Patient Problems (1) Bilateral pneumothorax Current Visit: Yes Status: Acute Plan to address problem: Patient had left chest tube removed. Patient still has right chest tube placement. (2) Respiratory failure Current Visit: Yes Status: Acute Qualifiers: Chronicity: acute Respiratory failure complication: hypoxia Qualified Code(s): J96.01 - Acute respiratory failure with hypoxia Plan to address problem: Patient on 3L NC. Albuterol and Atrovent aerosol treatments Q 6 hours PRN for shortness of breath. Continue Lovenox. Continue Famotidine. Budesonide and Brovana aerosol treatments Q 12 hours. (3) Status asthmaticus Current Visit: Yes Status: Acute Qualifiers: Asthma severity: severe Asthma persistence: persistent Qualified Code(s): J45.52 - Severe persistent asthma with status asthmaticus Plan to address problem: Patient on 3L NC. Albuterol and Atrovent aerosol treatments Q 6 hours PRN for shortness of breath. Continue Lovenox. Continue Famotidine. Budesonide and Brovana aerosol treatments Q 12 hours. Alpha 1 anti-trypsin level. Subjective Date of service: 12/14/18 Principal diagnosis: Ac hypoxemic resp failure; Status Asthmaticus; bilateral pneumothoraces Interval history: Patient awake and resting on 4L of O2. No acute respiratory distress at this time. O2 saturation 94%. Afebrile. Mild leukocytosis. Patient's last ABG 12/11/18 pH 7.38, PCO2 43, Bicarb 25.3, PO2 71.8, O2 saturation 95.1% on FIO2 55. Patient's left chest tube came out today. Chest XRAY 12/14/18 report after chest tube removal: FINDINGS: Support devices: Left-sided pleural catheter has been removed. Heart: Stable cardiomediastinal silhouette. Lungs/pleura: No pneumothorax identified. There is mild residual bibasilar atelectasis with small layering effusion on the right. Additional findings: None. IMPRESSION: 1. Left- sided pleural catheter removal. No appreciable residual pneumothorax. 2. Small right-sided layering pleural effusion and mild bibasilar atelectasis. Objective Vital Signs - 12hr 12/14/18 12/14/18 12/14/18 02:45 02:59 03:00 Temperature 97.7 F Pulse Rate 66 Pulse Rate [ 59 L Bilateral Throughout] Pulse Rate [ From Monitor] Respiratory 15 Rate Respiratory 16 Rate [Bilateral Throughout] Blood Pressure 123/72 O2 Sat by Pulse 96 Oximetry 12/14/18 12/14/18 12/14/18 04:00 05:00 06:00 Temperature Pulse Rate 65 58 L 65 Pulse Rate [ Bilateral Throughout] Pulse Rate [ 69 From Monitor] Respiratory 14 18 15 Rate Respiratory Rate [Bilateral Throughout] Blood Pressure 119/68 122/77 123/76 O2 Sat by Pulse 97 97 94 Oximetry 12/14/18 12/14/18 12/14/18 07:00 08:00 08:49 Temperature 97.7 F Pulse Rate 58 L 68 Pulse Rate [ 54 L Bilateral Throughout] Pulse Rate [ From Monitor] Respiratory 16 9 L Rate Respiratory 18 Rate [Bilateral Throughout] Blood Pressure 121/67 117/76 O2 Sat by Pulse 97 97 100 Oximetry 12/14/18 12/14/18 12/14/18 09:00 10:00 11:00 Temperature Pulse Rate 77 67 70 Pulse Rate [ Bilateral Throughout] Pulse Rate [ From Monitor] Respiratory 19 13 14 Rate Respiratory Rate [Bilateral Throughout] Blood Pressure 127/69 123/76 127/69 O2 Sat by Pulse 92 94 94 Oximetry 12/14/18 12/14/18 12:00 13:00 Temperature 97.6 F Pulse Rate 69 80 Pulse Rate [ Bilateral Throughout] Pulse Rate [ 72 From Monitor] Respiratory 13 15 Rate Respiratory Rate [Bilateral Throughout] Blood Pressure 117/70 117/77 O2 Sat by Pulse 93 95 Oximetry Constitutional: no acute distress, alert, other (young AAM, normocephalic and atraumatic with normal respiratory effort at rest) Eyes: non-icteric ENT: oropharynx moist Neck: supple, no lymphadenopathy, no JVD, other (+ Sub-Q emphysema to lower right neck) Effort: normal Ascultation: Right: diminished breath sounds (right base), Bilateral: other (Prolonged expiratory phase) Percussion: Bilateral: not dull Cardiovascular: regular rate and rhythm Gastrointestinal: normoactive bowel sounds, soft, non-tender, non-distended Integumentary: normal Extremities: no cyanosis, no edema, pulses normal, no ischemia or petechiae Neurologic: normal mental status, non-focal exam, pupils equal and round, motor strength normal and Psychiatric: mood appropriate, affect normal CBC and BMP: 12/11/18 03:43 12/11/18 03:43 ABG, PT/INR, D-dimer: ABG POC ABG pH 7.325 (7.35-7.45) L 12/10/18 17:22 ABG pH 7.388 pH Units (7.350-7.450) 12/11/18 05:04 POC ABG pCO2 47.4 (35-45) H 12/10/18 17:22 ABG pCO2 43.0 mm Hg 12/11/18 05:04 POC ABG pO2 79 (80-105) L 12/10/18 17:22 ABG pO2 71.8 mm Hg (80.0-90.0) L 12/11/18 05:04 POC ABG HCO3 24.7 (22-26 mml/L) 12/10/18 17:22 POC ABG Total CO2 26 (23-27mmol/L) 12/10/18 17:22 POC ABG O2 Sat 94 12/10/18 17:22 ABG O2 Saturation 95.1 % (95.0-99.0) 12/11/18 05:04 Abnormal lab findings: Abnormal Labs 12/09/18 12/09/18 12/10/18 23:10 23:10 04:56 WBC 12.2 H RBC 5.22 H MCV 83 L 83 L MCHC Lymph % (Auto) 11.6 L Eos % (Auto) 4.7 H Eos # 0.5 H Seg Neutrophils % 77.4 H Seg Neuts % (Manual) 97.0 H Lymphocytes % (Manual) 2.0 L Seg Neutrophils # 7.9 H Seg Neutrophils # Man 11.8 H Lymphocytes # (Manual) 0.2 L POC ABG pH ABG pH POC ABG pCO2 POC ABG pO2 ABG pO2 ABG O2 Saturation ABG Base Excess ABG Hemoglobin Oxyhemoglobin Carbon Dioxide Creatinine 0.7 L Glucose POC Glucose Calcium 12/10/18 12/10/18 12/10/18 04:56 05:10 08:30 WBC RBC MCV MCHC Lymph % (Auto) Eos % (Auto) Eos # Seg Neutrophils % Seg Neuts % (Manual) Lymphocytes % (Manual) Seg Neutrophils # Seg Neutrophils # Man Lymphocytes # (Manual) POC ABG pH ABG pH 7.269 L 7.318 L POC ABG pCO2 POC ABG pO2 ABG pO2 58.8 L ABG O2 Saturation 88.3 L ABG Base Excess -4.3 L -3.4 L ABG Hemoglobin 13.8 L 13.0 L Oxyhemoglobin 93.6 L 86.8 L Carbon Dioxide 20 L Creatinine Glucose 132 H POC Glucose Calcium 8.1 L 12/10/18 12/10/18 12/10/18 11:04 17:22 Unknown WBC RBC MCV MCHC Lymph % (Auto) Eos % (Auto) Eos # Seg Neutrophils % Seg Neuts % (Manual) Lymphocytes % (Manual) Seg Neutrophils # Seg Neutrophils # Man Lymphocytes # (Manual) POC ABG pH 7.325 L ABG pH 7.285 L POC ABG pCO2 47.4 H POC ABG pO2 79 L ABG pO2 195.2 H ABG O2 Saturation 99.1 H ABG Base Excess -3.9 L ABG Hemoglobin Oxyhemoglobin Carbon Dioxide Creatinine Glucose POC Glucose 146 H Calcium 12/10/18 12/11/18 12/11/18 Unknown 03:43 03:43 WBC 13.7 H RBC MCV 81 L MCHC 35 H Lymph % (Auto) Eos % (Auto) Eos # Seg Neutrophils % Seg Neuts % (Manual) Lymphocytes % (Manual) Seg Neutrophils # Seg Neutrophils # Man Lymphocytes # (Manual) POC ABG pH ABG pH 7.327 L POC ABG pCO2 POC ABG pO2 ABG pO2 74.8 L ABG O2 Saturation 94.7 L ABG Base Excess ABG Hemoglobin 13.7 L Oxyhemoglobin 93.1 L Carbon Dioxide Creatinine Glucose 153 H POC Glucose Calcium 12/11/18 12/11/18 05:04 17:28 WBC RBC MCV MCHC Lymph % (Auto) Eos % (Auto) Eos # Seg Neutrophils % Seg Neuts % (Manual) Lymphocytes % (Manual) Seg Neutrophils # Seg Neutrophils # Man Lymphocytes # (Manual) POC ABG pH ABG pH POC ABG pCO2 POC ABG pO2 ABG pO2 71.8 L ABG O2 Saturation ABG Base Excess ABG Hemoglobin 11.9 L Oxyhemoglobin 93.7 L Carbon Dioxide Creatinine Glucose POC Glucose 114 H Calcium Chest x-ray: report reviewed, image reviewed Additional Studies: Chest XRAY 12/14/18: FINDINGS: Support devices: Left-sided pleural catheter has been removed. Heart: Stable cardiomediastinal silhouette. Lungs/pleura: No pneumothorax identified. There is mild residual bibasilar atelectasis with small layering effusion on the right. Additional findings: None. IMPRESSION: 1. Left-sided pleural catheter removal. No appreciable residual pneumothorax. 2. Small right-sided layering pleural effusion and mild bibasilar atelectasis. Allied health notes reviewed: nursing
[2018-12-14] MEDS: PERCOCET 5/325 PO PRN ×2 (14:57→21:05)
[2018-12-14] MEDS ORDERED: DUONEB *Not for PRN Use IH (18:02)
[2018-12-14] MEDS: LOVENOX SUB-Q SCH (21:05)
[2018-12-14] MEDS: BROVANA NEBU IH SCH (21:25)
[2018-12-14] MEDS: PULMICORT IH SCH (21:26)
[2018-12-15] MEDS: TORADOL IV PRN (02:34)
[2018-12-15] MEDS: PERCOCET 5/325 PO PRN ×3 (02:35→16:26)
[2018-12-15 04:41] LABS: Basophils % (Auto) 0.3 % (0.0-1.8); Eosinophils # (Auto) 0.5 K/mm3 (0.0-0.4); Eosinophils % (Auto) 5.2 % (0.0-4.3); Hematocrit 43.5 % (35.5-45.6); Hemoglobin 15.3 gm/dl (11.8-15.2); Lymphocytes % (Auto) 21.4 % (13.4-35.0); Mean Corpuscular HGB Conc 35 % (32-34); Mean Corpuscular Volume 81 fl (84-94); Monocytes % (Auto) 10.4 % (0.0-7.3); Platelet Count 218 K/mm3 (140-440); Red Blood Count 5.39 M/mm3 (3.65-5.03); Red Cell Distribution Width 13.9 % (13.2-15.2)
[2018-12-15 05:07] LABS: BUN/Creatinine Ratio 21; Blood Urea Nitrogen 15 mg/dL (9-20); Calcium 8.4 mg/dL (8.4-10.2); Hemolysis Index 10
--- NOTE | 2018-12-15 08:49 | XRay Report ---
CHEST 1 VIEW INDICATION: f/u ,Pneumothorax. COMPARISON: 12/14/2018 FINDINGS: Support devices: A small caliber right upper chest tube is unchanged in position. Heart: Normal. Lungs/Pleura: Stable mild right basal atelectasis. No pneumothorax. No airspace disease. Additional findings: None. IMPRESSION: 1. Stable chest with no pneumothorax. Signer Name: Davey Joseph MD Signed: 12/15/2018 8:44 AM Workstation Name: [id number]
[2018-12-15] MEDS: BROVANA NEBU IH SCH ×2 (09:13→19:25)
[2018-12-15] MEDS: PULMICORT IH SCH ×2 (09:13→19:25)
[2018-12-15] MEDS: PEPCID PO SCH (10:05)
--- NOTE | 2018-12-15 11:06 | Progress Note ---
Assessment and Plan - Patient Problems (1) Bilateral pneumothorax Current Visit: Yes Status: Acute Plan to address problem: Pt stable. CXR shows no PTX today. I have clamped the right CT. Will check another CXR later today. If ok, will remove CT. Please call with questions. Time=10min Subjective Date of service: 12/15/18 Patient Reports: Positive: no new complaints (no issues o/n.) Objective Vital Signs - 12hr 12/15/18 12/15/18 12/15/18 00:00 01:00 02:00 Temperature 98 F Pulse Rate 75 76 66 Pulse Rate [ Bilateral Throughout] Pulse Rate [ 78 From Monitor] Respiratory 20 13 14 Rate Respiratory Rate [Bilateral Throughout] Blood Pressure 118/63 112/69 108/67 O2 Sat by Pulse 96 98 Oximetry 12/15/18 12/15/18 12/15/18 02:34 02:35 03:00 Temperature Pulse Rate 88 Pulse Rate [ Bilateral Throughout] Pulse Rate [ From Monitor] Respiratory 17 17 15 Rate Respiratory Rate [Bilateral Throughout] Blood Pressure 111/72 O2 Sat by Pulse 95 Oximetry 12/15/18 12/15/18 12/15/18 04:00 05:00 06:00 Temperature 98.9 F Pulse Rate 69 69 76 Pulse Rate [ Bilateral Throughout] Pulse Rate [ 76 From Monitor] Respiratory 14 15 14 Rate Respiratory Rate [Bilateral Throughout] Blood Pressure 115/71 109/64 112/63 O2 Sat by Pulse 95 95 95 Oximetry 12/15/18 12/15/18 12/15/18 07:00 08:00 09:12 Temperature 98.6 F Pulse Rate 73 88 Pulse Rate [ Bilateral Throughout] Pulse Rate [ 89 From Monitor] Respiratory 19 12 Rate Respiratory Rate [Bilateral Throughout] Blood Pressure 110/66 113/64 O2 Sat by Pulse 93 92 94 Oximetry 12/15/18 09:14 Temperature Pulse Rate Pulse Rate [ 82 Bilateral Throughout] Pulse Rate [ From Monitor] Respiratory Rate Respiratory 18 Rate [Bilateral Throughout] Blood Pressure O2 Sat by Pulse Oximetry - General physical appearance no distress, no pain - Eyes normal occular movement - Respiratory normal expansion, normal respiratory effort, other (no airleak in CT. minimal serous drainage.) - Psychiatric oriented to time, oriented to person, oriented to place, speech is normal, memory intact - Labs 12/15/18 04:26 12/15/18 04:26 Diabetes panel 12/15/18 Range/Units 04:26 Sodium 135 L (137-145) mmol/L Potassium 3.7 (3.6-5.0) mmol/L Chloride 96.8 L (98-107) mmol/L Carbon Dioxide 27 (22-30) mmol/L BUN 15 (9-20) mg/dL Creatinine 0.7 L (0.8-1.5) mg/dL Glucose 90 (75-100) mg/dL Calcium 8.4 (8.4-10.2) mg/dL Calcium panel 12/15/18 Range/Units 04:26 Calcium 8.4 (8.4-10.2) mg/dL Phosphorus 4.30 (2.5-4.5) mg/dL Pituitary panel 12/15/18 Range/Units 04:26 Sodium 135 L (137-145) mmol/L Potassium 3.7 (3.6-5.0) mmol/L Chloride 96.8 L (98-107) mmol/L Carbon Dioxide 27 (22-30) mmol/L BUN 15 (9-20) mg/dL Creatinine 0.7 L (0.8-1.5) mg/dL Glucose 90 (75-100) mg/dL Calcium 8.4 (8.4-10.2) mg/dL Adrenal panel 12/15/18 Range/Units 04:26 Sodium 135 L (137-145) mmol/L Potassium 3.7 (3.6-5.0) mmol/L Chloride 96.8 L (98-107) mmol/L Carbon Dioxide 27 (22-30) mmol/L BUN 15 (9-20) mg/dL Creatinine 0.7 L (0.8-1.5) mg/dL Glucose 90 (75-100) mg/dL Calcium 8.4 (8.4-10.2) mg/dL
--- NOTE | 2018-12-15 11:27 | Progress Note ---
Assessment and Plan Patient awake and resting on 4L of O2. No acute respiratory distress at this time. O2 saturation 94%. Afebrile. Mild leukocytosis. Patient's last ABG 12/11/18 pH 7.38, PCO2 43, Bicarb 25.3, PO2 71.8, O2 saturation 95.1% on FIO2 55. Patient's left chest tube came out today. Chest XRAY 12/14/18 report after chest tube removal: FINDINGS: Support devices: Left-sided pleural catheter has been removed. Heart: Stable cardiomediastinal silhouette. Lungs/pleura: No pneumothorax identified. There is mild residual bibasilar atelectasis with small layering effusion on the right. Additional findings: None. IMPRESSION: 1. Left- sided pleural catheter removal. No appreciable residual pneumothorax. 2. Small right-sided layering pleural effusion and mild bibasilar atelectasis. - Patient Problems (1) Bilateral pneumothorax Current Visit: Yes Status: Acute Plan to address problem: Patient had left chest tube removed. Patient still has right chest tube placement. (2) Respiratory failure Current Visit: Yes Status: Acute Qualifiers: Chronicity: acute Respiratory failure complication: hypoxia Qualified Code(s): J96.01 - Acute respiratory failure with hypoxia Plan to address problem: Patient on 3L NC. Albuterol and Atrovent aerosol treatments Q 6 hours PRN for shortness of breath. Continue Lovenox. Continue Famotidine. Budesonide and Brovana aerosol treatments Q 12 hours. (3) Status asthmaticus Current Visit: Yes Status: Acute Qualifiers: Asthma severity: severe Asthma persistence: persistent Qualified Code(s): J45.52 - Severe persistent asthma with status asthmaticus Plan to address problem: Patient on 3L NC. Albuterol and Atrovent aerosol treatments Q 6 hours PRN for shortness of breath. Continue Lovenox. Continue Famotidine. Budesonide and Brovana aerosol treatments Q 12 hours. Alpha 1 anti-trypsin level. Subjective Date of service: 12/15/18 Principal diagnosis: Ac hypoxemic resp failure; Status Asthmaticus; bilateral pneumothoraces Interval history: Patient awake and resting on 4L of O2. No acute respiratory distress at this time. O2 saturation 94%. Afebrile. Mild leukocytosis. Patient's last ABG 12/11/18 pH 7.38, PCO2 43, Bicarb 25.3, PO2 71.8, O2 saturation 95.1% on FIO2 55. Patient's left chest tube came out today. Chest XRAY 12/14/18 report after chest tube removal: FINDINGS: Support devices: Left-sided pleural catheter has been removed. Heart: Stable cardiomediastinal silhouette. Lungs/pleura: No pneumothorax identified. There is mild residual bibasilar atelectasis with small layering effusion on the right. Additional findings: None. IMPRESSION: 1. Left- sided pleural catheter removal. No appreciable residual pneumothorax. 2. Small right-sided layering pleural effusion and mild bibasilar atelectasis. Objective Vital Signs - 12hr 12/15/18 12/15/18 12/15/18 00:00 01:00 02:00 Temperature 98 F Pulse Rate 75 76 66 Pulse Rate [ Bilateral Throughout] Pulse Rate [ 78 From Monitor] Respiratory 20 13 14 Rate Respiratory Rate [Bilateral Throughout] Blood Pressure 118/63 112/69 108/67 O2 Sat by Pulse 96 98 Oximetry 12/15/18 12/15/18 12/15/18 02:34 02:35 03:00 Temperature Pulse Rate 88 Pulse Rate [ Bilateral Throughout] Pulse Rate [ From Monitor] Respiratory 17 17 15 Rate Respiratory Rate [Bilateral Throughout] Blood Pressure 111/72 O2 Sat by Pulse 95 Oximetry 12/15/18 12/15/18 12/15/18 04:00 05:00 06:00 Temperature 98.9 F Pulse Rate 69 69 76 Pulse Rate [ Bilateral Throughout] Pulse Rate [ 76 From Monitor] Respiratory 14 15 14 Rate Respiratory Rate [Bilateral Throughout] Blood Pressure 115/71 109/64 112/63 O2 Sat by Pulse 95 95 95 Oximetry 12/15/18 12/15/18 12/15/18 07:00 08:00 09:12 Temperature 98.6 F Pulse Rate 73 88 Pulse Rate [ Bilateral Throughout] Pulse Rate [ 89 From Monitor] Respiratory 19 12 Rate Respiratory Rate [Bilateral Throughout] Blood Pressure 110/66 113/64 O2 Sat by Pulse 93 92 94 Oximetry 12/15/18 09:14 Temperature Pulse Rate Pulse Rate [ 82 Bilateral Throughout] Pulse Rate [ From Monitor] Respiratory Rate Respiratory 18 Rate [Bilateral Throughout] Blood Pressure O2 Sat by Pulse Oximetry Constitutional: no acute distress, alert, other (young AAM, normocephalic and a traumatic with normal respiratory effort at rest) Eyes: non-icteric ENT: oropharynx moist Neck: supple, no lymphadenopathy, no JVD, other (+ Sub-Q emphysema to lower right neck) Effort: normal Ascultation: Right: diminished breath sounds (right base), Bilateral: other (Prolonged expiratory phase) Percussion: Bilateral: not dull Cardiovascular: regular rate and rhythm Gastrointestinal: normoactive bowel sounds, soft, non-tender, non-distended Integumentary: normal Extremities: no cyanosis, no edema, pulses normal, no ischemia or petechiae Neurologic: normal mental status, non-focal exam, pupils equal and round, motor strength normal and Psychiatric: mood appropriate, affect normal CBC and BMP: 12/15/18 04:26 12/15/18 04:26 ABG, PT/INR, D-dimer: ABG POC ABG pH 7.325 (7.35-7.45) L 12/10/18 17:22 ABG pH 7.388 pH Units (7.350-7.450) 12/11/18 05:04 POC ABG pCO2 47.4 (35-45) H 12/10/18 17:22 ABG pCO2 43.0 mm Hg 12/11/18 05:04 POC ABG pO2 79 (80-105) L 12/10/18 17:22 ABG pO2 71.8 mm Hg (80.0-90.0) L 12/11/18 05:04 POC ABG HCO3 24.7 (22-26 mml/L) 12/10/18 17:22 POC ABG Total CO2 26 (23-27mmol/L) 12/10/18 17:22 POC ABG O2 Sat 94 12/10/18 17:22 ABG O2 Saturation 95.1 % (95.0-99.0) 12/11/18 05:04 Abnormal lab findings: Abnormal Labs 12/09/18 12/09/18 12/10/18 23:10 23:10 04:56 WBC 12.2 H RBC 5.22 H Hgb MCV 83 L 83 L MCHC Lymph % (Auto) 11.6 L [place] % (Auto) Eos % (Auto) 4.7 H [place] # Eos # 0.5 H Seg Neutrophils % 77.4 H Seg Neuts % (Manual) 97.0 H Lymphocytes % (Manual) 2.0 L Seg Neutrophils # 7.9 H Seg Neutrophils # Man 11.8 H Lymphocytes # (Manual) 0.2 L POC ABG pH ABG pH POC ABG pCO2 POC ABG pO2 ABG pO2 ABG O2 Saturation ABG Base Excess ABG Hemoglobin Oxyhemoglobin Sodium Chloride Carbon Dioxide Creatinine 0.7 L Glucose POC Glucose Calcium 12/10/18 12/10/18 12/10/18 04:56 05:10 08:30 WBC RBC Hgb MCV MCHC Lymph % (Auto) [place] % (Auto) Eos % (Auto) [place] # Eos # Seg Neutrophils % Seg Neuts % (Manual) Lymphocytes % (Manual) Seg Neutrophils # Seg Neutrophils # Man Lymphocytes # (Manual) POC ABG pH ABG pH 7.269 L 7.318 L POC ABG pCO2 POC ABG pO2 ABG pO2 58.8 L ABG O2 Saturation 88.3 L ABG Base Excess -4.3 L -3.4 L ABG Hemoglobin 13.8 L 13.0 L Oxyhemoglobin 93.6 L 86.8 L Sodium Chloride Carbon Dioxide 20 L Creatinine Glucose 132 H POC Glucose Calcium 8.1 L 12/10/18 12/10/18 12/10/18 11:04 17:22 Unknown WBC RBC Hgb MCV MCHC Lymph % (Auto) [place] % (Auto) Eos % (Auto) [place] # Eos # Seg Neutrophils % Seg Neuts % (Manual) Lymphocytes % (Manual) Seg Neutrophils # Seg Neutrophils # Man Lymphocytes # (Manual) POC ABG pH 7.325 L ABG pH 7.285 L POC ABG pCO2 47.4 H POC ABG pO2 79 L ABG pO2 195.2 H ABG O2 Saturation 99.1 H ABG Base Excess -3.9 L ABG Hemoglobin Oxyhemoglobin Sodium Chloride Carbon Dioxide Creatinine Glucose POC Glucose 146 H Calcium 12/10/18 12/11/18 12/11/18 Unknown 03:43 03:43 WBC 13.7 H RBC Hgb MCV 81 L MCHC 35 H Lymph % (Auto) [place] % (Auto) Eos % (Auto) [place] # Eos # Seg Neutrophils % Seg Neuts % (Manual) Lymphocytes % (Manual) Seg Neutrophils # Seg Neutrophils # Man Lymphocytes # (Manual) POC ABG pH ABG pH 7.327 L POC ABG pCO2 POC ABG pO2 ABG pO2 74.8 L ABG O2 Saturation 94.7 L ABG Base Excess ABG Hemoglobin 13.7 L Oxyhemoglobin 93.1 L Sodium Chloride Carbon Dioxide Creatinine Glucose 153 H POC Glucose Calcium 12/11/18 12/11/18 12/15/18 05:04 17:28 04:26 WBC RBC 5.39 H Hgb 15.3 H MCV 81 L MCHC 35 H Lymph % (Auto) [place] % (Auto) 10.4 H Eos % (Auto) 5.2 H [place] # 1.0 H Eos # 0.5 H Seg Neutrophils % Seg Neuts % (Manual) Lymphocytes % (Manual) Seg Neutrophils # Seg Neutrophils # Man Lymphocytes # (Manual) POC ABG pH ABG pH POC ABG pCO2 POC ABG pO2 ABG pO2 71.8 L ABG O2 Saturation ABG Base Excess ABG Hemoglobin 11.9 L Oxyhemoglobin 93.7 L Sodium Chloride Carbon Dioxide Creatinine Glucose POC Glucose 114 H Calcium 12/15/18 04:26 WBC RBC Hgb MCV MCHC Lymph % (Auto) [place] % (Auto) Eos % (Auto) [place] # Eos # Seg Neutrophils % Seg Neuts % (Manual) Lymphocytes % (Manual) Seg Neutrophils # Seg Neutrophils # Man Lymphocytes # (Manual) POC ABG pH ABG pH POC ABG pCO2 POC ABG pO2 ABG pO2 ABG O2 Saturation ABG Base Excess ABG Hemoglobin Oxyhemoglobin Sodium 135 L Chloride 96.8 L Carbon Dioxide Creatinine 0.7 L Glucose POC Glucose Calcium Allied health notes reviewed: nursing
--- NOTE | 2018-12-15 11:55 | Progress Note ---
Assessment and Plan Assessment and plan: 18 with a history of asthma, Anxiety disorder, bipolar, ADHD similar to complaints of shortness of breath 2 days per the girlfriend at bedside. He also has a cough productive of green phlegm. The emergency room he was found to be started distress started on BiPAP, he improved but then later became hypoxic and was subsequently intubated. A review of system is unobtainable. * Per girlfriend at bedside, patient ran out of his Inhaler and recently lost his nebulizer machine. * Patient had a prior intubation about a year ago for Asthma exacerbation * Patient was extubated, CT chest showed signinfcation Pneumothorax. 2 small bore chest tube placed with good result CXR: Right lower lobe and probable right middle lobe atelectasis/postobstructive pneumonia. An endobronchial lesion/mucous plug should be considered. Aspiration is possible. CTA: IMPRESSION: 1. Small to moderate bilateral pneumothoraces without mediastinal shift. 2. Extensive pneumomediastinum and subcutaneous emphysema without a clear etiology. Renal US. IMPRESSION No acute sonographic abnormality of the kidneys. --Acute respiratory failure with hypoxia s/p Intubation done in the ED now extubated Continue oxygen titrated O2 sats to more than 90% and supportive care--Status Asthmaticus with Acute asthma exacerbation with bronchitis Oxygen nebulizers. Supportive care --Bilateral Pneumothoraces-small to moderate s/p jairo chest tube placement, left chest tube output Pulmonary surgery following --Extensive Pneumomediastinum and Subcutaneous Emphysema Supportive care --Sinus Bradycardia: Present on admission ?Result of possible tension penumothorax HR ranges in 50s and 60s now. Continue supportive care --Pleuritic chest pain; and management, incentive spirometry Pulmonary following --THC use disorder'; advised to quit recreational drug use --Ongoing Tobacco use disorder; smoking cessation advised Nicotine patch if needed --Respiratory acidosis --Possible Aspiration pneumonia; empiric antibiotics Supportive care --h/o ADHD/bipolar/anxiety disorder; Psychiatric evaluation as needed --DVT prophylaxis; Lovenox Monitor closely and adjust management as needed Possible removal of the chest tube Possible discharge tomorrow if stable Plan of care reviewed with the patient, his fiance And his nurse History Interval history: Patient seen and examined medical records reviewed Patient complains of some musculoskeletal pain more pain medications Alert awake oriented 3 Vital signs noted Left-sided pleural drain was out Chest x-ray this morning; right pleural drain in place, no left-sided pleural drain Hospitalist Physical - Constitutional Vitals: Temp Pulse Resp BP Pulse Ox 98.6 F 82 18 113/64 94 12/15/18 08:00 12/15/18 09:14 12/15/18 09:14 12/15/18 08:00 12/15/18 09:12 General appearance: Present: no acute distress, well-nourished - EENT Eyes: Present: PERRL, EOM intact - Neck Neck: Present: supple, normal ROM - Respiratory Respiratory effort: normal Respiratory: bilateral: diminished, negative: rales, rhonchi, wheezing - Cardiovascular Rhythm: regular Heart Sounds: Present: S1 & S2 - Extremities Extremities: no ischemia, No edema - Abdominal General gastrointestinal: soft, non-tender, non-distended, normal bowel sounds - Integumentary Integumentary: Present: clear, warm - Psychiatric Psychiatric: appropriate mood/affect, cooperative - Neurologic Neurologic: CNII-XII intact, moves all extremities Results - Labs CBC & Chem 7: 12/15/18 04:26 12/15/18 04:26 Labs: Laboratory Last Values WBC 9.6 K/mm3 (4.5-11.0) 12/15/18 04:26 RBC 5.39 M/mm3 (3.65-5.03) H 12/15/18 04:26 Hgb 15.3 gm/dl (11.8-15.2) H 12/15/18 04:26 Hct 43.5 % (35.5-45.6) 12/15/18 04:26 MCV 81 fl (84-94) L 12/15/18 04:26 MCH 28 pg (28-32) 12/15/18 04:26 MCHC 35 % (32-34) H 12/15/18 04:26 RDW 13.9 % (13.2-15.2) 12/15/18 04:26 Plt Count 218 K/mm3 (140-440) 12/15/18 04:26 Lymph % (Auto) 21.4 % (13.4-35.0) 12/15/18 04:26 [place] % (Auto) 10.4 % (0.0-7.3) H 12/15/18 04:26 Eos % (Auto) 5.2 % (0.0-4.3) H 12/15/18 04:26 Baso % (Auto) 0.3 % (0.0-1.8) 12/15/18 04:26 Lymph # 2.0 K/mm3 (1.2-5.4) 12/15/18 04:26 [place] # 1.0 K/mm3 (0.0-0.8) H 12/15/18 04:26 Eos # 0.5 K/mm3 (0.0-0.4) H 12/15/18 04:26 Baso # 0.0 K/mm3 (0.0-0.1) 12/15/18 04:26 Add Manual Diff Complete 12/10/18 04:56 Total Counted 100 12/10/18 04:56 Seg Neutrophils % 62.7 % (40.0-70.0) 12/15/18 04:26 Seg Neuts % (Manual) 97.0 % (40.0-70.0) H 12/10/18 04:56 0 % 12/10/18 04:56 2.0 % (13.4-35.0) L 12/10/18 04:56 Reactive Lymphs % (Man) 0 % 12/10/18 04:56 1.0 % (0.0-7.3) 12/10/18 04:56 0 % (0.0-4.3) 12/10/18 04:56 0 % (0.0-1.8) 12/10/18 04:56 0 % 12/10/18 04:56 0 % 12/10/18 04:56 0 % 12/10/18 04:56 0 % 12/10/18 04:56 Nucleated RBC % Not Reportable 12/10/18 04:56 Seg Neutrophils # 6.0 K/mm3 (1.8-7.7) 12/15/18 04:26 Seg Neutrophils # Man 11.8 K/mm3 (1.8-7.7) H 12/10/18 04:56 Band Neutrophils # 0.0 K/mm3 12/10/18 04:56 0.2 K/mm3 (1.2-5.4) L 12/10/18 04:56 Abs React Lymphs (Man) 0.0 K/mm3 12/10/18 04:56 0.1 K/mm3 (0.0-0.8) 12/10/18 04:56 0.0 K/mm3 (0.0-0.4) 12/10/18 04:56 0.0 K/mm3 (0.0-0.1) 12/10/18 04:56 0.0 K/mm3 12/10/18 04:56 0.0 K/mm3 12/10/18 04:56 0.0 K/mm3 12/10/18 04:56 Blast Cells # 0.0 K/mm3 12/10/18 04:56 WBC Morphology Not Reportable 12/10/18 04:56 Hypersegmented Neuts Not Reportable 12/10/18 04:56 Hyposegmented Neuts Not Reportable 12/10/18 04:56 Hypogranular Neuts Not Reportable 12/10/18 04:56 Not Reportable 12/10/18 04:56 Not Reportable 12/10/18 04:56 Not Reportable 12/10/18 04:56 Not Reportable 12/10/18 04:56 Not Reportable 12/10/18 04:56 Not Reportable 12/10/18 04:56 Consistent w auto 12/10/18 04:56 Not Reportable 12/10/18 04:56 Plt Clumps, EDTA Not Reportable 12/10/18 04:56 Not Reportable 12/10/18 04:56 Not Reportable 12/10/18 04:56 Not Reportable 12/10/18 04:56 Plt Morphology Comment Not Reportable 12/10/18 04:56 RBC Morphology Normal 12/10/18 04:56 Dimorphic RBCs Not Reportable 12/10/18 04:56 Not Reportable 12/10/18 04:56 Not Reportable 12/10/18 04:56 Not Reportable 12/10/18 04:56 Not Reportable 12/10/18 04:56 Not Reportable 12/10/18 04:56 Not Reportable 12/10/18 04:56 Not Reportable 12/10/18 04:56 Not Reportable 12/10/18 04:56 Not Reportable 12/10/18 04:56 Not Reportable 12/10/18 04:56 Not Reportable 12/10/18 04:56 Not Reportable 12/10/18 04:56 Not Reportable 12/10/18 04:56 Not Reportable 12/10/18 04:56 Not Reportable 12/10/18 04:56 Not Reportable 12/10/18 04:56 Not Reportable 12/10/18 04:56 Not Reportable 12/10/18 04:56 Not Reportable 12/10/18 04:56 Acanthocytes (Spur) Not Reportable 12/10/18 04:56 Rouleaux Not Reportable 12/10/18 04:56 Not Reportable 12/10/18 04:56 Not Reportable 12/10/18 04:56 Not Reportable 12/10/18 04:56 Not Reportable 12/10/18 04:56 Hem Pathologist Commnt No 12/10/18 04:56 POC ABG pH 7.325 (7.35-7.45) L 12/10/18 17:22 ABG pH 7.388 pH Units (7.350-7.450) 12/11/18 05:04 POC ABG pCO2 47.4 (35-45) H 12/10/18 17:22 ABG pCO2 43.0 mm Hg 12/11/18 05:04 POC ABG pO2 79 (80-105) L 12/10/18 17:22 ABG pO2 71.8 mm Hg (80.0-90.0) L 12/11/18 05:04 POC ABG HCO3 24.7 (22-26 mml/L) 12/10/18 17:22 ABG HCO3 25.3 mmol/L (20.0-26.0) 12/11/18 05:04 POC ABG Total CO2 26 (23-27mmol/L) 12/10/18 17:22 POC ABG O2 Sat 94 12/10/18 17:22 ABG O2 Saturation 95.1 % (95.0-99.0) 12/11/18 05:04 ABG O2 Content 19.8 (0.0-44) 12/11/18 05:04 POC ABG Base Excess -1 ((-2) - (+3)mmol/L) 12/10/18 17:22 ABG Base Excess 0.1 mmol/L (-2.0-3.0) 12/11/18 05:04 ABG Hemoglobin 11.9 gm/dl (14.0-18.0) L 12/11/18 05:04 ABG Carboxyhemoglobin 1.0 % (0.0-5.0) 12/11/18 05:04 ABG Methemoglobin 0.5 % (0.0-1.5) 12/11/18 05:04 93.7 % (95.0-99.0) L 12/11/18 05:04 55 % 12/11/18 05:04 Sodium 135 mmol/L (137-145) L 12/15/18 04:26 Potassium 3.7 mmol/L (3.6-5.0) 12/15/18 04:26 Chloride 96.8 mmol/L (98-107) L 12/15/18 04:26 Carbon Dioxide 27 mmol/L (22-30) 12/15/18 04:26 15 mmol/L 12/15/18 04:26 BUN 15 mg/dL (9-20) 12/15/18 04:26 0.7 mg/dL (0.8-1.5) L 12/15/18 04:26 Estimated GFR > 60 ml/min 12/15/18 04:26 21 % 12/15/18 04:26 Glucose 90 mg/dL (75-100) 12/15/18 04:26 POC Glucose 114 (70-105) H 12/11/18 17:28 Lactic Acid 1.80 mmol/L (0.7-2.0) 12/09/18 23:13 Calcium 8.4 mg/dL (8.4-10.2) 12/15/18 04:26 Phosphorus 4.30 mg/dL (2.5-4.5) 12/15/18 04:26 Magnesium 1.90 mg/dL (1.7-2.3) 12/15/18 04:26 1.00 mg/dL (0.1-1.2) 12/09/18 23:10 AST 21 units/L (5-40) 12/09/18 23:10 ALT 13 units/L (7-56) 12/09/18 23:10 94 units/L (35-129) 12/09/18 23:10 < 0.010 ng/mL (0.00-0.029) 12/13/18 15:25 1.30 mg/dL (0.00-1.30) 12/10/18 12:16 7.6 g/dL (6.3-8.2) 12/09/18 23:10 4.3 g/dL (3.9-5) 12/09/18 23:10 1.3 % 12/09/18 23:10 Yellow (Yellow) 12/09/18 02:19 Clear (Clear) 12/09/18 02:19 7.0 (5.0-7.0) 12/09/18 02:19 Ur Specific [place] 1.028 (1.003-1.030) 12/09/18 02:19 <15 mg/dl mg/dL (Negative) 12/09/18 02:19 Neg mg/dL (Negative) 12/09/18 02:19 Neg mg/dL (Negative) 12/09/18 02:19 Neg (Negative) 12/09/18 02:19 Neg (Negative) 12/09/18 02:19 Neg (Negative) 12/09/18 02:19 4.0 mg/dL (<2.0) 12/09/18 02:19 Ur Leukocyte Esterase Neg (Negative) 12/09/18 02:19 2.0 /HPF (0.0-6.0) 12/09/18 02:19 1.0 /HPF (0.0-6.0) 12/09/18 02:19 Few /HPF 12/09/18 02:19 Presumptive negative 12/09/18 22:45 Presumptive negative 12/09/18 22:45 Ur Barbiturates Screen Presumptive negative 12/09/18 22:45 Ur Phencyclidine Scrn Presumptive negative 12/09/18 22:45 Ur Amphetamines Screen Presumptive negative 12/09/18 22:45 U Benzodiazepines Scrn Presumptive negative 12/09/18 22:45 Presumptive negative 12/09/18 22:45 U Marijuana (THC) Screen Presumptive positive 12/09/18 22:45 Disclamer 12/09/18 22:45 Active Medications - Current Medications Current Medications: Generic Name Dose Route Start Last Admin Trade Name Freq PRN Reason Stop Dose Admin Albuterol 2.5 mg 12/14/18 18:16 Proventil IH Q4HRT PRN Shortness Of Breath Arformoterol Tartrate 15 mcg 12/14/18 20:00 12/15/18 09:13 Brovana Nebu IH 15 mcg Q12HRT KELLE Administration Budesonide 0.5 mg 12/14/18 20:00 12/15/18 09:13 Pulmicort IH 0.5 mg Q12HRT KELLE Administration Enoxaparin Sodium 40 mg 12/13/18 22:00 12/14/18 21:05 Lovenox SUB-Q 40 mg QDAY@2200 KELLE Administration Famotidine 20 mg 12/13/18 14:00 12/15/18 10:05 Pepcid PO 20 mg DAILY KELLE Administration Hydromorphone HCl 0.5 mg 12/13/18 14:00 12/14/18 11:47 Dilaudid IV 0.5 mg Q4H PRN Administration Pain , Severe (7-10) Oxycodone/Acetaminophen 1 tab 12/13/18 17:24 12/15/18 08:35 Percocet 5/325 PO 1 tab Q6H PRN Administration Pain, Moderate (4-6) Nutrition/Malnutrition Assess - Dietary Evaluation Nutrition/Malnutrition Findings: Nutrition Notes Start: 12/10/18 11:30 Freq: Status: Active Protocol: Document 12/15/18 11:37 LM (Rec: 12/15/18 11:42 LM [id number]) Nutrition Notes Initial or Follow up Reassessment Other Pertinent Diagnosis Asthma, respiratory acidosis, bipolar disorder, ARF, peach allergy Current Diet Regular diet Labs/Tests NA 135 Cr 0.7 Pertinent Medications Reviewed Height 5 ft 7 in Weight 61 kg [place] Body Weight (kg) 67.27 BMI 21.0 Subjective/Other Information Pt stated he has good appetite but did not eat breakfast due to being picky eater. Pt ate sausage biscuit instead. Pt stated he likes the Ensure. Burn Absent Trauma Absent #1 Nutrition Diagnosis Inadequate oral intake Diagnosis Progress(for reassessment Continues documentation) Is patient on ventilator? No Is Patient Ambulatory and/or Out of Bed No REE-([facility]-confined to bed) [phone] Calculation Used for Recommendations [facility] Additional Notes Protein: 49-61g (0.8-1g/kg) Fluids: 1 ml/kcal Nutrition Intervention Change Diet Order: continue regular diet Add Supplement/Snack (indicate name/kcal Ensure Enlive Chocolate once a /protein ) day Provides kCal: 350 Provides Protein (gm) 20 Goal #1 Meet at least 75% of energy and protein needs Anticipated Discharge Needs: Regular diet Follow-Up By: 12/17/18 Additional Comments F/U for PO/ONS intakes
[2018-12-15] MEDS ORDERED: TORADOL IV PRN (12:12)
[2018-12-15] MEDS ORDERED: DILAUDID IV PRN (12:18)
--- NOTE | 2018-12-15 14:49 | XRay Report ---
CHEST 1 VIEW INDICATION / CLINICAL INFORMATION: Chest pain COMPARISON: None available. FINDINGS: SUPPORT DEVICES: Right pleural drain noted on the right.. HEART / MEDIASTINUM: No significant abnormality. LUNGS / PLEURA: Moderate right pleural effusion. No pneumothorax. Signer Name: Kun Johnson MD Signed: 12/15/2018 2:45 PM Workstation Name: [id number]
--- NOTE | 2018-12-15 15:20 | Event Note ---
Date: 12/15/18 I did not see any evidence of a recurrent PTX on the right after the tube had been clamped this morning. Pt does not report any changes in his breathing. CT was removed without any issues. Pt stable. No need for repeat CXR unless his clinical status changes. Pt may be discharged at anytime from my standpoint. No flying or being in a pressurized environment for 2 weeks. f/u prn. Please call with questions. Time=15min
[2018-12-15] MEDS: PROVENTIL IH PRN (17:49)
[2018-12-15] MEDS: LOVENOX SUB-Q SCH (23:40)
--- NOTE | 2018-12-16 07:40 | XRay Report ---
CHEST 1 VIEW INDICATION: Follow up on pleural effusion.. COMPARISON: Previous day. FINDINGS: Support devices: None. Heart: Within normal limits. Lungs/Pleura: Persistent volume loss at the bases. Aeration has improved on the right. Right perihila r atelectasis remains. Additional findings: None. IMPRESSION: Mild improving aeration right base without further change. Signer Name: Gui Richards MD Signed: 12/16/2018 7:35 AM Workstation Name: [id number]
[2018-12-16] MEDS: BROVANA NEBU IH SCH ×2 (08:39→20:34)
[2018-12-16] MEDS: PULMICORT IH SCH ×2 (08:39→20:34)
[2018-12-16] MEDS: PEPCID PO SCH (09:35)
--- NOTE | 2018-12-16 09:59 | Progress Note ---
Assessment and Plan Acute respiratory failure s/p extubation Bilateral pneumothoraces s/p chest tubes Status Asthmaticus with Acute asthma exacerbation with bronchitis THC use disorder' Tobacco use disorder Respiratory acidosis Possible Aspiration pneumonia ADHD Bipolar Anxiety disorder Leukocytosis - avoid positive pressure ventilation -high flow oxygen, get follow up CXR in the morning - Accucheck with glycemic control, target blood glucose <180 mg/dL - VTE prophylaxis - continue systemic steroid taper - continue Bronchodilators with pulmonary hygiene per RT - PT/OT increase activity -Start anxieolytics CONDITION: FAIR PROGNOSIS: FAIR CODE STATUS: FULL CODE I have spent ( >35 ) minutes with the patient w/ >50% of the time spent counseling and/or coordinating care for this patient. Counseling topics and/or how time was spent coordinating patient's care is outlined in the impression and plan above. Subjective Date of service: 12/16/18 Principal diagnosis: Ac hypoxemic resp failure; Status Asthmaticus; bilateral pneumothoraces Interval history: Patient is seen today for: Acute respiratory failure on MVS ;Status Asthmaticus with Acute asthma exacerbation with bronchitis; Bilateral pneumothoraces s/p chest tubes Seen and examined at bedside; 24hour events reviewed; nursing and respiratory care staff consulted; no adverse overnight events reported to me; Awake and alert, no fevers, no chest pain, no vomiting no diarrhea. Episodes of desaturations reported overnight requiring NIPPV support. Currently on oxygen via [place] Objective Vital Signs - 12hr 12/15/18 12/15/18 12/16/18 22:01 23:00 00:00 Temperature 98.9 F Pulse Rate 102 H 95 H 101 H Pulse Rate [ Bilateral Throughout] Pulse Rate [ 111 H From Monitor] Respiratory 21 20 26 H Rate Respiratory Rate [Bilateral Throughout] Blood Pressure 112/50 109/59 116/54 O2 Sat by Pulse 92 97 90 Oximetry 12/16/18 12/16/18 12/16/18 01:00 02:00 03:00 Temperature Pulse Rate 90 89 80 Pulse Rate [ Bilateral Throughout] Pulse Rate [ From Monitor] Respiratory 21 26 H 22 Rate Respiratory Rate [Bilateral Throughout] Blood Pressure 97/54 98/62 109/52 O2 Sat by Pulse 97 94 97 Oximetry 12/16/18 12/16/18 12/16/18 03:42 04:00 04:10 Temperature 98.8 F 98.8 F Pulse Rate 76 Pulse Rate [ Bilateral Throughout] Pulse Rate [ 73 From Monitor] Respiratory 16 Rate Respiratory Rate [Bilateral Throughout] Blood Pressure 113/66 O2 Sat by Pulse 97 95 Oximetry 12/16/18 12/16/18 12/16/18 05:00 06:00 07:00 Temperature Pulse Rate 101 H 75 91 H Pulse Rate [ Bilateral Throughout] Pulse Rate [ From Monitor] Respiratory 34 H 22 26 H Rate Respiratory Rate [Bilateral Throughout] Blood Pressure 110/65 112/59 121/54 O2 Sat by Pulse 97 95 93 Oximetry 12/16/18 12/16/18 08:00 08:39 Temperature 99.0 F Pulse Rate Pulse Rate [ 78 Bilateral Throughout] Pulse Rate [ From Monitor] Respiratory Rate Respiratory 24 Rate [Bilateral Throughout] Blood Pressure O2 Sat by Pulse Oximetry Constitutional: no acute distress, alert, other (young AAM, normocephalic and atraumatic with normal respiratory effort at rest) Eyes: non-icteric ENT: oropharynx moist Neck: supple, no lymphadenopathy, no JVD Effort: mildly labored Ascultation: Right: diminished breath sounds (right base), Bilateral: clear Percussion: Bilateral: not dull Cardiovascular: regular rate and rhythm, other (S1,S2, no murmurs, gallops or ru bs) Gastrointestinal: normoactive bowel sounds, soft, non-tender, non-distended Integumentary: normal Extremities: no cyanosis, no edema, pulses normal, no ischemia or petechiae Neurologic: normal mental status, non-focal exam, pupils equal and round, motor strength normal and Psychiatric: mood appropriate, anxious CBC and BMP: 12/15/18 04:26 12/15/18 04:26 ABG, PT/INR, D-dimer: ABG POC ABG pH 7.423 (7.35-7.45) 12/15/18 21:43 ABG pH 7.388 pH Units (7.350-7.450) 12/11/18 05:04 POC ABG pCO2 41.3 (35-45) 12/15/18 21:43 ABG pCO2 43.0 mm Hg 12/11/18 05:04 POC ABG pO2 79 (80-105) L 12/15/18 21:43 ABG pO2 71.8 mm Hg (80.0-90.0) L 12/11/18 05:04 POC ABG HCO3 26.9 (22-26 mml/L) 12/15/18 21:43 POC ABG Total CO2 28 (23-27mmol/L) 12/15/18 21:43 POC ABG O2 Sat 96 12/15/18 21:43 ABG O2 Saturation 95.1 % (95.0-99.0) 12/11/18 05:04 Abnormal lab findings: Abnormal Labs 12/09/18 12/09/18 12/10/18 23:10 23:10 04:56 WBC 12.2 H RBC 5.22 H Hgb MCV 83 L 83 L MCHC Lymph % (Auto) 11.6 L Edwards % (Auto) Eos % (Auto) 4.7 H Edwards # Eos # 0.5 H Seg Neutrophils % 77.4 H Seg Neuts % (Manual) 97.0 H Lymphocytes % (Manual) 2.0 L Seg Neutrophils # 7.9 H Seg Neutrophils # Man 11.8 H Lymphocytes # (Manual) 0.2 L POC ABG pH ABG pH POC ABG pCO2 POC ABG pO2 ABG pO2 ABG O2 Saturation ABG Base Excess ABG Hemoglobin Oxyhemoglobin Sodium Chloride Carbon Dioxide Creatinine 0.7 L Glucose POC Glucose Calcium 12/10/18 12/10/18 12/10/18 04:56 05:10 08:30 WBC RBC Hgb MCV MCHC Lymph % (Auto) Edwards % (Auto) Eos % (Auto) Edwards # Eos # Seg Neutrophils % Seg Neuts % (Manual) Lymphocytes % (Manual) Seg Neutrophils # Seg Neutrophils # Man Lymphocytes # (Manual) POC ABG pH ABG pH 7.269 L 7.318 L POC ABG pCO2 POC ABG pO2 ABG pO2 58.8 L ABG O2 Saturation 88.3 L ABG Base Excess -4.3 L -3.4 L ABG Hemoglobin 13.8 L 13.0 L Oxyhemoglobin 93.6 L 86.8 L Sodium Chloride Carbon Dioxide 20 L Creatinine Glucose 132 H POC Glucose Calcium 8.1 L 12/10/18 12/10/18 12/10/18 11:04 17:22 Unknown WBC RBC Hgb MCV MCHC Lymph % (Auto) Edwards % (Auto) Eos % (Auto) Edwards # Eos # Seg Neutrophils % Seg Neuts % (Manual) Lymphocytes % (Manual) Seg Neutrophils # Seg Neutrophils # Man Lymphocytes # (Manual) POC ABG pH 7.325 L ABG pH 7.285 L POC ABG pCO2 47.4 H POC ABG pO2 79 L ABG pO2 195.2 H ABG O2 Saturation 99.1 H ABG Base Excess -3.9 L ABG Hemoglobin Oxyhemoglobin Sodium Chloride Carbon Dioxide Creatinine Glucose POC Glucose 146 H Calcium 12/10/18 12/11/18 12/11/18 Unknown 03:43 03:43 WBC 13.7 H RBC Hgb MCV 81 L MCHC 35 H Lymph % (Auto) Edwards % (Auto) Eos % (Auto) Edwards # Eos # Seg Neutrophils % Seg Neuts % (Manual) Lymphocytes % (Manual) Seg Neutrophils # Seg Neutrophils # Man Lymphocytes # (Manual) POC ABG pH ABG pH 7.327 L POC ABG pCO2 POC ABG pO2 ABG pO2 74.8 L ABG O2 Saturation 94.7 L ABG Base Excess ABG Hemoglobin 13.7 L Oxyhemoglobin 93.1 L Sodium Chloride Carbon Dioxide Creatinine Glucose 153 H POC Glucose Calcium 12/11/18 12/11/18 12/15/18 05:04 17:28 04:26 WBC RBC 5.39 H Hgb 15.3 H MCV 81 L MCHC 35 H Lymph % (Auto) Edwards % (Auto) 10.4 H Eos % (Auto) 5.2 H Edwards # 1.0 H Eos # 0.5 H Seg Neutrophils % Seg Neuts % (Manual) Lymphocytes % (Manual) Seg Neutrophils # Seg Neutrophils # Man Lymphocytes # (Manual) POC ABG pH ABG pH POC ABG pCO2 POC ABG pO2 ABG pO2 71.8 L ABG O2 Saturation ABG Base Excess ABG Hemoglobin 11.9 L Oxyhemoglobin 93.7 L Sodium Chloride Carbon Dioxide Creatinine Glucose POC Glucose 114 H Calcium 12/15/18 12/15/18 04:26 21:43 WBC RBC Hgb MCV MCHC Lymph % (Auto) Edwards % (Auto) Eos % (Auto) Edwards # Eos # Seg Neutrophils % Seg Neuts % (Manual) Lymphocytes % (Manual) Seg Neutrophils # Seg Neutrophils # Man Lymphocytes # (Manual) POC ABG pH ABG pH POC ABG pCO2 POC ABG pO2 79 L ABG pO2 ABG O2 Saturation ABG Base Excess ABG Hemoglobin Oxyhemoglobin Sodium 135 L Chloride 96.8 L Carbon Dioxide Creatinine 0.7 L Glucose POC Glucose Calcium Chest x-ray: image reviewed (Low lung volumes, no pneumothorax) Allied health notes reviewed: nursing
[2018-12-16] MEDS: PROVENTIL IH PRN ×2 (18:16→23:32)
--- NOTE | 2018-12-16 18:35 | Progress Note ---
Assessment and Plan Assessment and plan: 18 with a history of asthma, Anxiety disorder, bipolar, ADHD similar to complaints of shortness of breath 2 days per the girlfriend at bedside. He also has a cough productive of green phlegm. The emergency room he was found to be started distress started on BiPAP, he improved but then later became hypoxic and was subsequently intubated. A review of system is unobtainable. * Per girlfriend at bedside, patient ran out of his Inhaler and recently lost his nebulizer machine. * Patient had a prior intubation about a year ago for Asthma exacerbation * Patient was extubated, CT chest showed signinfcation Pneumothorax. 2 small bore chest tube placed with good result * s/p removal of bilateral chest tubes, lungs well expanded --Acute respiratory failure with hypoxia s/p Intubation done in the ED s/p ablation The patient is severely hypoxemic, requiring high flow oxygen Closely monitor, pulmonary following --Status Asthmaticus with Acute asthma exacerbation with bronchitis Oxygen nebulizers. Supportive care --Bilateral Pneumothoraces-small to moderate s/p jairo chest tube placement, bilateral chest tubes removed Follow-up chest x-ray no acute findings --Extensive Pneumomediastinum and Subcutaneous Emphysema Supportive care --Sinus Bradycardia: Present on admission ?Result of possible tension penumothorax HR ranges in 50s and 60s now. Continue supportive care --Pleuritic chest pain; and management, incentive spirometry Pulmonary following --THC use disorder'; advised to quit recreational drug use --Ongoing Tobacco use disorder; smoking cessation advised Nicotine patch if needed --Respiratory acidosis --Possible Aspiration pneumonia; empiric antibiotics Supportive care --h/o ADHD/bipolar/anxiety disorder; Psychiatric evaluation as needed --DVT prophylaxis; Lovenox Gradually wean off oxygen Possible discharge in 1-2 days if stable Pulmonary evaluation and recommendations noted and appreciated Plan of care is reviewed with the patient and his fiance at the bedside and his nurse Critical care time 31 minutes History Interval history: Patient seen and examined medical records reviewed Patient is cachectic in mild distress Requiring flow oxygen Alert awake oriented 3 Vital signs reviewed Hospitalist Physical - Constitutional Vitals: Temp Pulse Resp BP Pulse Ox 99.6 F 80 20 120/60 95 12/16/18 16:00 12/16/18 18:16 12/16/18 18:16 12/16/18 16:00 12/16/18 18:24 General appearance: Present: no acute distress, cachectic, disheveled - EENT Eyes: Present: PERRL, EOM intact - Neck Neck: Present: supple, normal ROM - Respiratory Respiratory effort: normal Respiratory: bilateral: diminished, negative: rales, rhonchi, wheezing - Cardiovascular Rhythm: regular Heart Sounds: Present: S1 & S2 - Extremities Extremities: no ischemia, No edema - Abdominal General gastrointestinal: soft, non-tender, non-distended, normal bowel sounds - Integumentary Integumentary: Present: clear, warm - Psychiatric Psychiatric: appropriate mood/affect, cooperative - Neurologic Neurologic: CNII-XII intact, moves all extremities Results - Labs CBC & Chem 7: 12/15/18 04:26 12/15/18 04:26 Labs: Laboratory Last Values WBC 9.6 K/mm3 (4.5-11.0) 12/15/18 04:26 RBC 5.39 M/mm3 (3.65-5.03) H 12/15/18 04:26 Hgb 15.3 gm/dl (11.8-15.2) H 12/15/18 04:26 Hct 43.5 % (35.5-45.6) 12/15/18 04:26 MCV 81 fl (84-94) L 12/15/18 04:26 MCH 28 pg (28-32) 12/15/18 04:26 MCHC 35 % (32-34) H 12/15/18 04:26 RDW 13.9 % (13.2-15.2) 12/15/18 04:26 Plt Count 218 K/mm3 (140-440) 12/15/18 04:26 Lymph % (Auto) 21.4 % (13.4-35.0) 12/15/18 04:26 Summers % (Auto) 10.4 % (0.0-7.3) H 12/15/18 04:26 Eos % (Auto) 5.2 % (0.0-4.3) H 12/15/18 04:26 Baso % (Auto) 0.3 % (0.0-1.8) 12/15/18 04:26 Lymph # 2.0 K/mm3 (1.2-5.4) 12/15/18 04:26 Summers # 1.0 K/mm3 (0.0-0.8) H 12/15/18 04:26 Eos # 0.5 K/mm3 (0.0-0.4) H 12/15/18 04:26 Baso # 0.0 K/mm3 (0.0-0.1) 12/15/18 04:26 Add Manual Diff Complete 12/10/18 04:56 Total Counted 100 12/10/18 04:56 Seg Neutrophils % 62.7 % (40.0-70.0) 12/15/18 04:26 Seg Neuts % (Manual) 97.0 % (40.0-70.0) H 12/10/18 04:56 0 % 12/10/18 04:56 2.0 % (13.4-35.0) L 12/10/18 04:56 Reactive Lymphs % (Man) 0 % 12/10/18 04:56 1.0 % (0.0-7.3) 12/10/18 04:56 0 % (0.0-4.3) 12/10/18 04:56 0 % (0.0-1.8) 12/10/18 04:56 0 % 12/10/18 04:56 0 % 12/10/18 04:56 0 % 12/10/18 04:56 0 % 12/10/18 04:56 Nucleated RBC % Not Reportable 12/10/18 04:56 Seg Neutrophils # 6.0 K/mm3 (1.8-7.7) 12/15/18 04:26 Seg Neutrophils # Man 11.8 K/mm3 (1.8-7.7) H 12/10/18 04:56 Band Neutrophils # 0.0 K/mm3 12/10/18 04:56 0.2 K/mm3 (1.2-5.4) L 12/10/18 04:56 Abs React Lymphs (Man) 0.0 K/mm3 12/10/18 04:56 0.1 K/mm3 (0.0-0.8) 12/10/18 04:56 0.0 K/mm3 (0.0-0.4) 12/10/18 04:56 0.0 K/mm3 (0.0-0.1) 12/10/18 04:56 0.0 K/mm3 12/10/18 04:56 0.0 K/mm3 12/10/18 04:56 0.0 K/mm3 12/10/18 04:56 Blast Cells # 0.0 K/mm3 12/10/18 04:56 WBC Morphology Not Reportable 12/10/18 04:56 Hypersegmented Neuts Not Reportable 12/10/18 04:56 Hyposegmented Neuts Not Reportable 12/10/18 04:56 Hypogranular Neuts Not Reportable 12/10/18 04:56 Not Reportable 12/10/18 04:56 Not Reportable 12/10/18 04:56 Not Reportable 12/10/18 04:56 Not Reportable 12/10/18 04:56 Not Reportable 12/10/18 04:56 Not Reportable 12/10/18 04:56 Consistent w auto 12/10/18 04:56 Not Reportable 12/10/18 04:56 Plt Clumps, EDTA Not Reportable 12/10/18 04:56 Not Reportable 12/10/18 04:56 Not Reportable 12/10/18 04:56 Not Reportable 12/10/18 04:56 Plt Morphology Comment Not Reportable 12/10/18 04:56 RBC Morphology Normal 12/10/18 04:56 Dimorphic RBCs Not Reportable 12/10/18 04:56 Not Reportable 12/10/18 04:56 Not Reportable 12/10/18 04:56 Not Reportable 12/10/18 04:56 Not Reportable 12/10/18 04:56 Not Reportable 12/10/18 04:56 Not Reportable 12/10/18 04:56 Not Reportable 12/10/18 04:56 Not Reportable 12/10/18 04:56 Not Reportable 12/10/18 04:56 Not Reportable 12/10/18 04:56 Not Reportable 12/10/18 04:56 Not Reportable 12/10/18 04:56 Not Reportable 12/10/18 04:56 Not Reportable 12/10/18 04:56 Not Reportable 12/10/18 04:56 Not Reportable 12/10/18 04:56 Not Reportable 12/10/18 04:56 Not Reportable 12/10/18 04:56 Not Reportable 12/10/18 04:56 Acanthocytes (Spur) Not Reportable 12/10/18 04:56 Rouleaux Not Reportable 12/10/18 04:56 Not Reportable 12/10/18 04:56 Not Reportable 12/10/18 04:56 Not Reportable 12/10/18 04:56 Not Reportable 12/10/18 04:56 Hem Pathologist Commnt No 12/10/18 04:56 POC ABG pH 7.417 (7.35-7.45) 12/16/18 10:20 ABG pH 7.388 pH Units (7.350-7.450) 12/11/18 05:04 POC ABG pCO2 41.2 (35-45) 12/16/18 10:20 ABG pCO2 43.0 mm Hg 12/11/18 05:04 POC ABG pO2 71 (80-105) L 12/16/18 10:20 ABG pO2 71.8 mm Hg (80.0-90.0) L 12/11/18 05:04 POC ABG HCO3 26.6 (22-26 mml/L) 12/16/18 10:20 ABG HCO3 25.3 mmol/L (20.0-26.0) 12/11/18 05:04 POC ABG Total CO2 28 (23-27mmol/L) 12/16/18 10:20 POC ABG O2 Sat 94 12/16/18 10:20 ABG O2 Saturation 95.1 % (95.0-99.0) 12/11/18 05:04 ABG O2 Content 19.8 (0.0-44) 12/11/18 05:04 POC ABG Base Excess 2 ((-2) - (+3)mmol/L) 12/16/18 10:20 ABG Base Excess 0.1 mmol/L (-2.0-3.0) 12/11/18 05:04 ABG Hemoglobin 11.9 gm/dl (14.0-18.0) L 12/11/18 05:04 ABG Carboxyhemoglobin 1.0 % (0.0-5.0) 12/11/18 05:04 ABG Methemoglobin 0.5 % (0.0-1.5) 12/11/18 05:04 93.7 % (95.0-99.0) L 12/11/18 05:04 36 % 12/16/18 10:20 Sodium 135 mmol/L (137-145) L 12/15/18 04:26 Potassium 3.7 mmol/L (3.6-5.0) 12/15/18 04:26 Chloride 96.8 mmol/L (98-107) L 12/15/18 04:26 Carbon Dioxide 27 mmol/L (22-30) 12/15/18 04:26 15 mmol/L 12/15/18 04:26 BUN 15 mg/dL (9-20) 12/15/18 04:26 0.7 mg/dL (0.8-1.5) L 12/15/18 04:26 Estimated GFR > 60 ml/min 12/15/18 04:26 21 % 12/15/18 04:26 Glucose 90 mg/dL (75-100) 12/15/18 04:26 POC Glucose 114 (70-105) H 12/11/18 17:28 Lactic Acid 1.80 mmol/L (0.7-2.0) 12/09/18 23:13 Calcium 8.4 mg/dL (8.4-10.2) 12/15/18 04:26 Phosphorus 4.30 mg/dL (2.5-4.5) 12/15/18 04:26 Magnesium 1.90 mg/dL (1.7-2.3) 12/15/18 04:26 1.00 mg/dL (0.1-1.2) 12/09/18 23:10 AST 21 units/L (5-40) 12/09/18 23:10 ALT 13 units/L (7-56) 12/09/18 23:10 94 units/L (35-129) 12/09/18 23:10 < 0.010 ng/mL (0.00-0.029) 12/13/18 15:25 1.30 mg/dL (0.00-1.30) 12/10/18 12:16 7.6 g/dL (6.3-8.2) 12/09/18 23:10 4.3 g/dL (3.9-5) 12/09/18 23:10 1.3 % 12/09/18 23:10 Yellow (Yellow) 12/09/18 02:19 Clear (Clear) 12/09/18 02:19 7.0 (5.0-7.0) 12/09/18 02:19 Ur Specific Jolon 1.028 (1.003-1.030) 12/09/18 02:19 <15 mg/dl mg/dL (Negative) 12/09/18 02:19 Neg mg/dL (Negative) 12/09/18 02:19 Neg mg/dL (Negative) 12/09/18 02:19 Neg (Negative) 12/09/18 02:19 Neg (Negative) 12/09/18 02:19 Neg (Negative) 12/09/18 02:19 4.0 mg/dL (<2.0) 12/09/18 02:19 Ur Leukocyte Esterase Neg (Negative) 12/09/18 02:19 2.0 /HPF (0.0-6.0) 12/09/18 02:19 1.0 /HPF (0.0-6.0) 12/09/18 02:19 Few /HPF 12/09/18 02:19 Presumptive negative 12/09/18 22:45 Presumptive negative 12/09/18 22:45 Ur Barbiturates Screen Presumptive negative 12/09/18 22:45 Ur Phencyclidine Scrn Presumptive negative 12/09/18 22:45 Ur Amphetamines Screen Presumptive negative 12/09/18 22:45 U Benzodiazepines Scrn Presumptive negative 12/09/18 22:45 Presumptive negative 12/09/18 22:45 U Marijuana (THC) Screen Presumptive positive 12/09/18 22:45 Disclamer 12/09/18 22:45 Active Medications - Current Medications Current Medications: Generic Name Dose Route Start Last Admin Trade Name Freq PRN Reason Stop Dose Admin Albuterol 2.5 mg 12/14/18 18:16 12/16/18 18:16 Proventil IH 2.5 mg Q4HRT PRN Administration Shortness Of Breath Arformoterol Tartrate 15 mcg 12/14/18 20:00 12/16/18 08:39 Brovana Nebu IH 15 mcg Q12HRT KELLE Administration Budesonide 0.5 mg 12/14/18 20:00 12/16/18 08:39 Pulmicort IH 0.5 mg Q12HRT KELLE Administration Enoxaparin Sodium 40 mg 12/13/18 22:00 12/15/18 23:40 Lovenox SUB-Q 40 mg QDAY@2200 KELLE Administration Famotidine 20 mg 12/13/18 14:00 12/16/18 09:35 Pepcid PO 20 mg DAILY KELLE Administration Hydromorphone HCl 0.5 mg 12/15/18 12:18 Dilaudid IV Q8H PRN Pain , Severe (7-10) Ketorolac Tromethamine 15 mg 12/15/18 12:12 12/15/18 12:35 Toradol IV 12/20/18 12:11 15 mg Q8H PRN Administration Pain, Moderate (4-6) Oxycodone/Acetaminophen 1 tab 12/13/18 17:24 12/15/18 16:26 Percocet 5/325 PO 1 tab Q6H PRN Administration Pain, Moderate (4-6) Nutrition/Malnutrition Assess - Dietary Evaluation Nutrition/Malnutrition Findings: Nutrition Notes Start: 12/10/18 11:30 Freq: Status: Active Protocol: Document 12/15/18 11:37 LM (Rec: 12/15/18 11:42 LM [id number]) Nutrition Notes Initial or Follow up Reassessment Other Pertinent Diagnosis Asthma, respiratory acidosis, bipolar disorder, ARF, peach allergy Current Diet Regular diet Labs/Tests NA 135 Cr 0.7 Pertinent Medications Reviewed Height 5 ft 7 in Weight 61 kg [place] Body Weight (kg) 67.27 BMI 21.0 Subjective/Other Information Pt stated he has good appetite but did not eat breakfast due to being picky eater. Pt ate sausage biscuit instead. Pt stated he likes the Ensure. Burn Absent Trauma Absent #1 Nutrition Diagnosis Inadequate oral intake Diagnosis Progress(for reassessment Continues documentation) Is patient on ventilator? No Is Patient Ambulatory and/or Out of Bed No REE-([facility]-confined to bed) 0368.650 Calculation Used for Recommendations [facility] Additional Notes Protein: 49-61g (0.8-1g/kg) Fluids: 1 ml/kcal Nutrition Intervention Change Diet Order: continue regular diet Add Supplement/Snack (indicate name/kcal Ensure Enlive Chocolate once a /protein ) day Provides kCal: 350 Provides Protein (gm) 20 Goal #1 Meet at least 75% of energy and protein needs Anticipated Discharge Needs: Regular diet Follow-Up By: 12/17/18 Additional Comments F/U for PO/ONS intakes
[2018-12-16] MEDS: LOVENOX SUB-Q SCH (22:41)
[2018-12-16] MEDS: PERCOCET 5/325 PO PRN (22:59)
[2018-12-17] MEDS: PULMICORT IH SCH ×2 (07:30→19:29)
[2018-12-17] MEDS: BROVANA NEBU IH SCH ×2 (07:30→19:29)
[2018-12-17] MEDS ORDERED: PROVENTIL IH PRN (08:05)
[2018-12-17] MEDS: PEPCID PO SCH (10:05)
--- NOTE | 2018-12-17 10:45 | Progress Note ---
Assessment and Plan Assessment and plan: 18 with a history of asthma, Anxiety disorder, bipolar, ADHD similar to complaints of shortness of breath 2 days per the girlfriend at bedside. He also has a cough productive of green phlegm. The emergency room he was found to be started distress started on BiPAP, he improved but then later became hypoxic and was subsequently intubated. A review of system is unobtainable. * Per girlfriend at bedside, patient ran out of his Inhaler and recently lost his nebulizer machine. * Patient had a prior intubation about a year ago for Asthma exacerbation * Patient was extubated, CT chest showed signinfcation Pneumothorax. 2 small bore chest tube placed with good result * s/p removal of bilateral chest tubes, lungs well expanded --Acute respiratory failure with hypoxia s/p Intubation done in the ED s/p ablation The patient is severely hypoxemic, requiring high flow oxygen Closely monitor, pulmonary following --Status Asthmaticus with Acute asthma exacerbation with bronchitis Oxygen nebulizers. Supportive care --Bilateral Pneumothoraces-small to moderate s/p jairo chest tube placement, bilateral chest tubes removed Follow-up chest x-ray no acute findings --Extensive Pneumomediastinum and Subcutaneous Emphysema Supportive care --Sinus Bradycardia: Present on admission ?Result of possible tension penumothorax HR ranges in 50s and 60s now. Continue supportive care --Pleuritic chest pain; and management, incentive spirometry Pulmonary following --THC use disorder'; advised to quit recreational drug use --Ongoing Tobacco use disorder; smoking cessation advised Nicotine patch if needed --Respiratory acidosis --Possible Aspiration pneumonia; empiric antibiotics Supportive care --h/o ADHD/bipolar/anxiety disorder; Psychiatric evaluation as needed --DVT prophylaxis; Lovenox Gradually wean off oxygen Possible discharge in 1-2 days if stable Pulmonary evaluation and recommendations noted and appreciated Plan of care is reviewed with the patient and his fiance at the bedside and his nurse Critical care time 31 minutes History Interval history: Patient seen and examined medical records reviewed Patient slightly anxious, hypoxic Requiring high flow oxygen, CPAP/BiPAP Alert awake oriented 3 Vital signs reviewed Hospitalist Physical - Constitutional Vitals: Temp Pulse Resp BP Pulse Ox 98.7 F 84 16 124/85 95 12/17/18 08:00 12/17/18 08:00 12/17/18 08:00 12/17/18 08:00 12/17/18 10:43 General appearance: Present: no acute distress, cachectic, disheveled - EENT Eyes: Present: PERRL, EOM intact - Neck Neck: Present: supple, normal ROM - Respiratory Respiratory effort: labored Respiratory: bilateral: diminished, rhonchi, negative: rales, wheezing - Cardiovascular Rhythm: regular Heart Sounds: Present: S1 & S2 - Extremities Extremities: no ischemia, No edema - Abdominal General gastrointestinal: soft, non-tender, non-distended, normal bowel sounds - Integumentary Integumentary: Present: clear, warm - Psychiatric Psychiatric: appropriate mood/affect, cooperative - Neurologic Neurologic: CNII-XII intact, moves all extremities Results - Labs CBC & Chem 7: 12/15/18 04:26 12/15/18 04:26 Labs: Laboratory Last Values WBC 9.6 K/mm3 (4.5-11.0) 12/15/18 04:26 RBC 5.39 M/mm3 (3.65-5.03) H 12/15/18 04:26 Hgb 15.3 gm/dl (11.8-15.2) H 12/15/18 04:26 Hct 43.5 % (35.5-45.6) 12/15/18 04:26 MCV 81 fl (84-94) L 12/15/18 04:26 MCH 28 pg (28-32) 12/15/18 04:26 MCHC 35 % (32-34) H 12/15/18 04:26 RDW 13.9 % (13.2-15.2) 12/15/18 04:26 Plt Count 218 K/mm3 (140-440) 12/15/18 04:26 Lymph % (Auto) 21.4 % (13.4-35.0) 12/15/18 04:26 [place] % (Auto) 10.4 % (0.0-7.3) H 12/15/18 04:26 Eos % (Auto) 5.2 % (0.0-4.3) H 12/15/18 04:26 Baso % (Auto) 0.3 % (0.0-1.8) 12/15/18 04:26 Lymph # 2.0 K/mm3 (1.2-5.4) 12/15/18 04:26 [place] # 1.0 K/mm3 (0.0-0.8) H 12/15/18 04:26 Eos # 0.5 K/mm3 (0.0-0.4) H 12/15/18 04:26 Baso # 0.0 K/mm3 (0.0-0.1) 12/15/18 04:26 Add Manual Diff Complete 12/10/18 04:56 Total Counted 100 12/10/18 04:56 Seg Neutrophils % 62.7 % (40.0-70.0) 12/15/18 04:26 Seg Neuts % (Manual) 97.0 % (40.0-70.0) H 12/10/18 04:56 0 % 12/10/18 04:56 2.0 % (13.4-35.0) L 12/10/18 04:56 Reactive Lymphs % (Man) 0 % 12/10/18 04:56 1.0 % (0.0-7.3) 12/10/18 04:56 0 % (0.0-4.3) 12/10/18 04:56 0 % (0.0-1.8) 12/10/18 04:56 0 % 12/10/18 04:56 0 % 12/10/18 04:56 0 % 12/10/18 04:56 0 % 12/10/18 04:56 Nucleated RBC % Not Reportable 12/10/18 04:56 Seg Neutrophils # 6.0 K/mm3 (1.8-7.7) 12/15/18 04:26 Seg Neutrophils # Man 11.8 K/mm3 (1.8-7.7) H 12/10/18 04:56 Band Neutrophils # 0.0 K/mm3 12/10/18 04:56 0.2 K/mm3 (1.2-5.4) L 12/10/18 04:56 Abs React Lymphs (Man) 0.0 K/mm3 12/10/18 04:56 0.1 K/mm3 (0.0-0.8) 12/10/18 04:56 0.0 K/mm3 (0.0-0.4) 12/10/18 04:56 0.0 K/mm3 (0.0-0.1) 12/10/18 04:56 0.0 K/mm3 12/10/18 04:56 0.0 K/mm3 12/10/18 04:56 0.0 K/mm3 12/10/18 04:56 Blast Cells # 0.0 K/mm3 12/10/18 04:56 WBC Morphology Not Reportable 12/10/18 04:56 Hypersegmented Neuts Not Reportable 12/10/18 04:56 Hyposegmented Neuts Not Reportable 12/10/18 04:56 Hypogranular Neuts Not Reportable 12/10/18 04:56 Not Reportable 12/10/18 04:56 Not Reportable 12/10/18 04:56 Not Reportable 12/10/18 04:56 Not Reportable 12/10/18 04:56 Not Reportable 12/10/18 04:56 Not Reportable 12/10/18 04:56 Consistent w auto 12/10/18 04:56 Not Reportable 12/10/18 04:56 Plt Clumps, EDTA Not Reportable 12/10/18 04:56 Not Reportable 12/10/18 04:56 Not Reportable 12/10/18 04:56 Not Reportable 12/10/18 04:56 Plt Morphology Comment Not Reportable 12/10/18 04:56 RBC Morphology Normal 12/10/18 04:56 Dimorphic RBCs Not Reportable 12/10/18 04:56 Not Reportable 12/10/18 04:56 Not Reportable 12/10/18 04:56 Not Reportable 12/10/18 04:56 Not Reportable 12/10/18 04:56 Not Reportable 12/10/18 04:56 Not Reportable 12/10/18 04:56 Not Reportable 12/10/18 04:56 Not Reportable 12/10/18 04:56 Not Reportable 12/10/18 04:56 Not Reportable 12/10/18 04:56 Not Reportable 12/10/18 04:56 Not Reportable 12/10/18 04:56 Not Reportable 12/10/18 04:56 Not Reportable 12/10/18 04:56 Not Reportable 12/10/18 04:56 Not Reportable 12/10/18 04:56 Not Reportable 12/10/18 04:56 Not Reportable 12/10/18 04:56 Not Reportable 12/10/18 04:56 Acanthocytes (Spur) Not Reportable 12/10/18 04:56 Rouleaux Not Reportable 12/10/18 04:56 Not Reportable 12/10/18 04:56 Not Reportable 12/10/18 04:56 Not Reportable 12/10/18 04:56 Not Reportable 12/10/18 04:56 Hem Pathologist Commnt No 12/10/18 04:56 POC ABG pH 7.417 (7.35-7.45) 12/16/18 10:20 ABG pH 7.388 pH Units (7.350-7.450) 12/11/18 05:04 POC ABG pCO2 41.2 (35-45) 12/16/18 10:20 ABG pCO2 43.0 mm Hg 12/11/18 05:04 POC ABG pO2 71 (80-105) L 12/16/18 10:20 ABG pO2 71.8 mm Hg (80.0-90.0) L 12/11/18 05:04 POC ABG HCO3 26.6 (22-26 mml/L) 12/16/18 10:20 ABG HCO3 25.3 mmol/L (20.0-26.0) 12/11/18 05:04 POC ABG Total CO2 28 (23-27mmol/L) 12/16/18 10:20 POC ABG O2 Sat 94 12/16/18 10:20 ABG O2 Saturation 95.1 % (95.0-99.0) 12/11/18 05:04 ABG O2 Content 19.8 (0.0-44) 12/11/18 05:04 POC ABG Base Excess 2 ((-2) - (+3)mmol/L) 12/16/18 10:20 ABG Base Excess 0.1 mmol/L (-2.0-3.0) 12/11/18 05:04 ABG Hemoglobin 11.9 gm/dl (14.0-18.0) L 12/11/18 05:04 ABG Carboxyhemoglobin 1.0 % (0.0-5.0) 12/11/18 05:04 ABG Methemoglobin 0.5 % (0.0-1.5) 12/11/18 05:04 93.7 % (95.0-99.0) L 12/11/18 05:04 36 % 12/16/18 10:20 Sodium 135 mmol/L (137-145) L 12/15/18 04:26 Potassium 3.7 mmol/L (3.6-5.0) 12/15/18 04:26 Chloride 96.8 mmol/L (98-107) L 12/15/18 04:26 Carbon Dioxide 27 mmol/L (22-30) 12/15/18 04:26 15 mmol/L 12/15/18 04:26 BUN 15 mg/dL (9-20) 12/15/18 04:26 0.7 mg/dL (0.8-1.5) L 12/15/18 04:26 Estimated GFR > 60 ml/min 12/15/18 04:26 21 % 12/15/18 04:26 Glucose 90 mg/dL (75-100) 12/15/18 04:26 POC Glucose 114 (70-105) H 12/11/18 17:28 Lactic Acid 1.80 mmol/L (0.7-2.0) 12/09/18 23:13 Calcium 8.4 mg/dL (8.4-10.2) 12/15/18 04:26 Phosphorus 4.30 mg/dL (2.5-4.5) 12/15/18 04:26 Magnesium 1.90 mg/dL (1.7-2.3) 12/15/18 04:26 1.00 mg/dL (0.1-1.2) 12/09/18 23:10 AST 21 units/L (5-40) 12/09/18 23:10 ALT 13 units/L (7-56) 12/09/18 23:10 94 units/L (35-129) 12/09/18 23:10 < 0.010 ng/mL (0.00-0.029) 12/13/18 15:25 1.30 mg/dL (0.00-1.30) 12/10/18 12:16 7.6 g/dL (6.3-8.2) 12/09/18 23:10 4.3 g/dL (3.9-5) 12/09/18 23:10 1.3 % 12/09/18 23:10 Yellow (Yellow) 12/09/18 02:19 Clear (Clear) 12/09/18 02:19 7.0 (5.0-7.0) 12/09/18 02:19 Ur Specific [place] 1.028 (1.003-1.030) 12/09/18 02:19 <15 mg/dl mg/dL (Negative) 12/09/18 02:19 Neg mg/dL (Negative) 12/09/18 02:19 Neg mg/dL (Negative) 12/09/18 02:19 Neg (Negative) 12/09/18 02:19 Neg (Negative) 12/09/18 02:19 Neg (Negative) 12/09/18 02:19 4.0 mg/dL (<2.0) 12/09/18 02:19 Ur Leukocyte Esterase Neg (Negative) 12/09/18 02:19 2.0 /HPF (0.0-6.0) 12/09/18 02:19 1.0 /HPF (0.0-6.0) 12/09/18 02:19 Few /HPF 12/09/18 02:19 Presumptive negative 12/09/18 22:45 Presumptive negative 12/09/18 22:45 Ur Barbiturates Screen Presumptive negative 12/09/18 22:45 Ur Phencyclidine Scrn Presumptive negative 12/09/18 22:45 Ur Amphetamines Screen Presumptive negative 12/09/18 22:45 U Benzodiazepines Scrn Presumptive negative 12/09/18 22:45 Presumptive negative 12/09/18 22:45 U Marijuana (THC) Screen Presumptive positive 12/09/18 22:45 Disclamer 12/09/18 22:45 Active Medications - Current Medications Current Medications: Generic Name Dose Route Start Last Admin Trade Name Freq PRN Reason Stop Dose Admin Albuterol 2.5 mg 12/17/18 08:05 Proventil IH Q4HRT PRN Shortness Of Breath Albuterol/Ipratropium 1 ampul 12/17/18 14:00 Duoneb *Not For Prn Use* IH Q6HRT KELLE Arformoterol Tartrate 15 mcg 12/17/18 20:00 Brovana Nebu Q12HRT KELLE Budesonide 0.5 mg 12/17/18 20:00 Pulmicort Q12HRT KELLE Enoxaparin Sodium 40 mg 12/13/18 22:00 12/16/18 22:41 Lovenox SUB-Q 40 mg QDAY@2200 KELLE Administration Famotidine 20 mg 12/13/18 14:00 12/17/18 10:05 Pepcid PO 20 mg DAILY KELLE Administration Hydromorphone HCl 0.5 mg 12/15/18 12:18 Dilaudid IV Q8H PRN Pain , Severe (7-10) Ketorolac Tromethamine 15 mg 12/15/18 12:12 12/15/18 12:35 Toradol IV 12/20/18 12:11 15 mg Q8H PRN Administration Pain, Moderate (4-6) Oxycodone/Acetaminophen 1 tab 12/13/18 17:24 12/16/18 22:59 Percocet 5/325 PO 1 tab Q6H PRN Administration Pain, Moderate (4-6) Nutrition/Malnutrition Assess - Dietary Evaluation Nutrition/Malnutrition Findings: Nutrition Notes Start: 12/10/18 11:30 Freq: Status: Active Protocol: Document 12/15/18 11:37 LM (Rec: 12/15/18 11:42 LM [id number]) Nutrition Notes Initial or Follow up Reassessment Other Pertinent Diagnosis Asthma, respiratory acidosis, bipolar disorder, ARF, peach allergy Current Diet Regular diet Labs/Tests NA 135 Cr 0.7 Pertinent Medications Reviewed Height 5 ft 7 in Weight 61 kg [place] Body Weight (kg) 67.27 BMI 21.0 Subjective/Other Information Pt stated he has good appetite but did not eat breakfast due to being picky eater. Pt ate sausage biscuit instead. Pt stated he likes the Ensure. Burn Absent Trauma Absent #1 Nutrition Diagnosis Inadequate oral intake Diagnosis Progress(for reassessment Continues documentation) Is patient on ventilator? No Is Patient Ambulatory and/or Out of Bed No REE-([facility]-confined to bed) 0560.882 Calculation Used for Recommendations [facility] Additional Notes Protein: 49-61g (0.8-1g/kg) Fluids: 1 ml/kcal Nutrition Intervention Change Diet Order: continue regular diet Add Supplement/Snack (indicate name/kcal Ensure Enlive Chocolate once a /protein ) day Provides kCal: 350 Provides Protein (gm) 20 Goal #1 Meet at least 75% of energy and protein needs Anticipated Discharge Needs: Regular diet Follow-Up By: 12/17/18 Additional Comments F/U for PO/ONS intakes
--- NOTE | 2018-12-17 11:27 | XRay Report ---
CHEST 1 VIEW INDICATION / CLINICAL INFORMATION: Hypoxia, pneumothorax. COMPARISON: 12/07/18 FINDINGS: SUPPORT DEVICES: None. HEART / MEDIASTINUM: No significant abnormality. LUNGS / PLEURA: Airspace disease in the right lung base No pneumothorax. ADDITIONAL FINDINGS: No significant additional findings. IMPRESSION: Airspace disease has redeveloped in the right lung base since yesterday. Minimal airspace disease rem ains in the left lower lung Signer Name: Bobby Villanueva MD FACR Signed: 12/17/2018 11:23 AM Workstation Name: [id number]
--- NOTE | 2018-12-17 12:24 | Progress Note ---
Assessment and Plan Acute respiratory failure s/p extubation Bilateral pneumothoraces s/p chest tubes Status Asthmaticus with Acute asthma exacerbation with bronchitis THC use disorder Tobacco use disorder Respiratory acidosis Possible Aspiration pneumonia, new RLL infiltrate ADHD Bipolar Anxiety disorder Leukocytosis With new right lower lobe infiltrate, increased work of breathing and increased oxygen requirement- will start Levofloxacin and Vancomycin. Get ID consult - avoid positive pressure ventilation -high flow oxygen, - Accucheck with glycemic control, target blood glucose <180 mg/dL - VTE prophylaxis - continue systemic steroid taper - continue Bronchodilators with pulmonary hygiene per RT - PT/OT increase activity -Start anxieolytics -Pysch consult- discussed with hospitalist CONDITION: FAIR PROGNOSIS: FAIR CODE STATUS: FULL CODE I have spent ( >35 ) minutes with the patient w/ >50% of the time spent counseling and/or coordinating care for this patient. Counseling topics and/or how time was spent coordinating patient's care is outlined in the impression and plan above. Subjective Date of service: 12/17/18 Principal diagnosis: Ac hypoxemic resp failure; Status Asthmaticus; bilateral pneumothoraces Interval history: Patient is seen today for: Acute respiratory failure on MVS ;Status Asthmaticus with Acute asthma exacerbation with bronchitis; Bilateral pneumothoraces s/p chest tubes Seen and examined at bedside; 24hour events reviewed; nursing and respiratory care staff consulted; no adverse overnight events reported to me; Awake and alert, no fevers, no chest pain, no vomiting no diarrhea. Episodes of desaturations reported overnight requiring NIPPV support. Currently on oxygen via [place], still tachypnic with episodes of anxiety Objective Vital Signs - 12hr 12/17/18 12/17/18 12/17/18 01:01 01:50 02:00 Temperature Pulse Rate 91 H 80 Pulse Rate [ Bilateral Throughout] Pulse Rate [ From Monitor] Pulse Rate [ Left] Respiratory 21 22 Rate Respiratory Rate [Bilateral Throughout] Blood Pressure 113/71 108/65 O2 Sat by Pulse 97 96 91 Oximetry 12/17/18 12/17/18 12/17/18 03:01 03:56 04:00 Temperature 98.8 F Pulse Rate 77 Pulse Rate [ Bilateral Throughout] Pulse Rate [ 83 From Monitor] Pulse Rate [ Left] Respiratory 24 24 Rate Respiratory Rate [Bilateral Throughout] Blood Pressure 108/65 O2 Sat by Pulse 98 97 Oximetry 12/17/18 12/17/18 12/17/18 07:30 08:00 08:01 Temperature 98.7 F Pulse Rate 89 Pulse Rate [ 93 H Bilateral Throughout] Pulse Rate [ From Monitor] Pulse Rate [ 84 Left] Respiratory 40 H 16 Rate Respiratory 29 H Rate [Bilateral Throughout] Blood Pressure 132/75 124/85 O2 Sat by Pulse 96 97 96 Oximetry 12/17/18 12/17/18 10:43 12:00 Temperature 98.0 F Pulse Rate Pulse Rate [ Bilateral Throughout] Pulse Rate [ From Monitor] Pulse Rate [ 91 H Left] Respiratory 20 Rate Respiratory Rate [Bilateral Throughout] Blood Pressure 127/78 O2 Sat by Pulse 95 95 Oximetry Constitutional: alert, other (young AAM, normocephalic and atraumatic with normal respiratory effort at rest) Eyes: non-icteric ENT: oropharynx moist Neck: supple, no lymphadenopathy, no JVD Effort: mildly labored Ascultation: Right: diminished breath sounds (right base), Bilateral: clear, other (Prolonged expiratory phase) Percussion: Bilateral: not dull Cardiovascular: regular rate and rhythm, other (S1,S2, no murmurs, gallops or rubs) Gastrointestinal: normoactive bowel sounds, soft, non-tender, non-distended Integumentary: normal Extremities: no cyanosis, no edema, pulses normal, no ischemia or petechiae Neurologic: normal mental status, non-focal exam, pupils equal and round, motor strength normal and Psychiatric: mood appropriate, anxious CBC and BMP: 12/15/18 04:26 12/15/18 04:26 ABG, PT/INR, D-dimer: ABG POC ABG pH 7.417 (7.35-7.45) 12/16/18 10:20 ABG pH 7.388 pH Units (7.350-7.450) 12/11/18 05:04 POC ABG pCO2 41.2 (35-45) 12/16/18 10:20 ABG pCO2 43.0 mm Hg 12/11/18 05:04 POC ABG pO2 71 (80-105) L 12/16/18 10:20 ABG pO2 71.8 mm Hg (80.0-90.0) L 12/11/18 05:04 POC ABG HCO3 26.6 (22-26 mml/L) 12/16/18 10:20 POC ABG Total CO2 28 (23-27mmol/L) 12/16/18 10:20 POC ABG O2 Sat 94 12/16/18 10:20 ABG O2 Saturation 95.1 % (95.0-99.0) 12/11/18 05:04 Abnormal lab findings: Abnormal Labs 12/09/18 12/09/18 12/10/18 23:10 23:10 04:56 WBC 12.2 H RBC 5.22 H Hgb MCV 83 L 83 L MCHC Lymph % (Auto) 11.6 L [place] % (Auto) Eos % (Auto) 4.7 H [place] # Eos # 0.5 H Seg Neutrophils % 77.4 H Seg Neuts % (Manual) 97.0 H Lymphocytes % (Manual) 2.0 L Seg Neutrophils # 7.9 H Seg Neutrophils # Man 11.8 H Lymphocytes # (Manual) 0.2 L POC ABG pH ABG pH POC ABG pCO2 POC ABG pO2 ABG pO2 ABG O2 Saturation ABG Base Excess ABG Hemoglobin Oxyhemoglobin Sodium Chloride Carbon Dioxide Creatinine 0.7 L Glucose POC Glucose Calcium 12/10/18 12/10/18 12/10/18 04:56 05:10 08:30 WBC RBC Hgb MCV MCHC Lymph % (Auto) [place] % (Auto) Eos % (Auto) [place] # Eos # Seg Neutrophils % Seg Neuts % (Manual) Lymphocytes % (Manual) Seg Neutrophils # Seg Neutrophils # Man Lymphocytes # (Manual) POC ABG pH ABG pH 7.269 L 7.318 L POC ABG pCO2 POC ABG pO2 ABG pO2 58.8 L ABG O2 Saturation 88.3 L ABG Base Excess -4.3 L -3.4 L ABG Hemoglobin 13.8 L 13.0 L Oxyhemoglobin 93.6 L 86.8 L Sodium Chloride Carbon Dioxide 20 L Creatinine Glucose 132 H POC Glucose Calcium 8.1 L 12/10/18 12/10/18 12/10/18 11:04 17:22 Unknown WBC RBC Hgb MCV MCHC Lymph % (Auto) [place] % (Auto) Eos % (Auto) [place] # Eos # Seg Neutrophils % Seg Neuts % (Manual) Lymphocytes % (Manual) Seg Neutrophils # Seg Neutrophils # Man Lymphocytes # (Manual) POC ABG pH 7.325 L ABG pH 7.285 L POC ABG pCO2 47.4 H POC ABG pO2 79 L ABG pO2 195.2 H ABG O2 Saturation 99.1 H ABG Base Excess -3.9 L ABG Hemoglobin Oxyhemoglobin Sodium Chloride Carbon Dioxide Creatinine Glucose POC Glucose 146 H Calcium 12/10/18 12/11/18 12/11/18 Unknown 03:43 03:43 WBC 13.7 H RBC Hgb MCV 81 L MCHC 35 H Lymph % (Auto) [place] % (Auto) Eos % (Auto) [place] # Eos # Seg Neutrophils % Seg Neuts % (Manual) Lymphocytes % (Manual) Seg Neutrophils # Seg Neutrophils # Man Lymphocytes # (Manual) POC ABG pH ABG pH 7.327 L POC ABG pCO2 POC ABG pO2 ABG pO2 74.8 L ABG O2 Saturation 94.7 L ABG Base Excess ABG Hemoglobin 13.7 L Oxyhemoglobin 93.1 L Sodium Chloride Carbon Dioxide Creatinine Glucose 153 H POC Glucose Calcium 12/11/18 12/11/18 12/15/18 05:04 17:28 04:26 WBC RBC 5.39 H Hgb 15.3 H MCV 81 L MCHC 35 H Lymph % (Auto) [place] % (Auto) 10.4 H Eos % (Auto) 5.2 H [place] # 1.0 H Eos # 0.5 H Seg Neutrophils % Seg Neuts % (Manual) Lymphocytes % (Manual) Seg Neutrophils # Seg Neutrophils # Man Lymphocytes # (Manual) POC ABG pH ABG pH POC ABG pCO2 POC ABG pO2 ABG pO2 71.8 L ABG O2 Saturation ABG Base Excess ABG Hemoglobin 11.9 L Oxyhemoglobin 93.7 L Sodium Chloride Carbon Dioxide Creatinine Glucose POC Glucose 114 H Calcium 12/15/18 12/15/18 12/16/18 04:26 21:43 10:20 WBC RBC Hgb MCV MCHC Lymph % (Auto) [place] % (Auto) Eos % (Auto) [place] # Eos # Seg Neutrophils % Seg Neuts % (Manual) Lymphocytes % (Manual) Seg Neutrophils # Seg Neutrophils # Man Lymphocytes # (Manual) POC ABG pH ABG pH POC ABG pCO2 POC ABG pO2 79 L 71 L ABG pO2 ABG O2 Saturation ABG Base Excess ABG Hemoglobin Oxyhemoglobin Sodium 135 L Chloride 96.8 L Carbon Dioxide Creatinine 0.7 L Glucose POC Glucose Calcium Chest x-ray: image reviewed (New right lower lobe infiltrate) Allied health notes reviewed: nursing
[2018-12-17] MEDS: XANAX PO SCH ×2 (12:34→21:18)
[2018-12-17] MEDS ORDERED: VANCOMYCIN 1,000 MG in NACL 0.9% 500 ML 500 ML IV ONE (12:35)
[2018-12-17] MEDS: DUONEB *Not for PRN Use IH SCH ×2 (14:02→19:29)
[2018-12-17] MEDS ORDERED: VANCOMYCIN/NS 1 GM/250 ML 1 GM/250 ML BAG IV ONE (15:00)
[2018-12-17] MEDS: LEVAQUIN 750MG/150ML 750 MG/150 ML BAG IV SCH (15:47)
[2018-12-17] MEDS: LOVENOX SUB-Q SCH (21:18)
[2018-12-18] MEDS: DUONEB *Not for PRN Use IH SCH ×4 (02:59→20:42)
[2018-12-18] MEDS: PULMICORT IH SCH ×2 (08:06→20:42)
[2018-12-18] MEDS: BROVANA NEBU IH SCH ×2 (08:06→20:42)
[2018-12-18] MEDS: XANAX PO SCH ×2 (09:32→22:06)
[2018-12-18] MEDS: PEPCID PO SCH (09:32)
[2018-12-18] MEDS: PERCOCET 5/325 PO PRN (09:32)
--- NOTE | 2018-12-18 13:40 | Progress Note ---
Assessment and Plan Acute respiratory failure s/p extubation Bilateral pneumothoraces s/p chest tubes Status Asthmaticus with Acute asthma exacerbation with bronchitis THC use disorder Tobacco use disorder Respiratory acidosis Possible Aspiration pneumonia, new RLL infiltrate ADHD Bipolar Anxiety disorder Leukocytosis, resolved -Complete levofloxacin for 7 days of therapy -Continue with incentive spirometry -wean flow rate and FIO2 on vapotherm - Accucheck with glycemic control, target blood glucose <180 mg/dL - VTE prophylaxis - continue systemic steroid taper - continue Bronchodilators with pulmonary hygiene per RT - PT/OT increase activity -Continue anxieolytics -OK to transfer to telemetry- needs monitoring, while he is being weaned off high flow oxygen and while he is on Seroquel to monitor QTc -Updated patient and his family at the bedside Discussed with RT/RN re care plan Start discharge planning soon CONDITION: FAIR PROGNOSIS: FAIR CODE STATUS: FULL CODE I have spent ( >35 ) minutes with the patient w/ >50% of the time spent coun seling and/or coordinating care for this patient. Counseling topics and/or how time was spent coordinating patient's care is outlined in the impression and plan above. Subjective Date of service: 12/18/18 Principal diagnosis: Ac hypoxemic resp failure; Status Asthmaticus; bilateral pneumothoraces Interval history: Patient is seen today for: Acute respiratory failure on MVS ;Status Asthmaticus with Acute asthma exacerbation with bronchitis; Bilateral pneumothoraces s/p chest tubes Seen and examined at bedside; 24hour events reviewed; nursing and respiratory care staff consulted; no adverse overnight events reported to me; Awake and alert, no fevers, no chest pain, no vomiting no diarrhea. Vitals, labs, medications, chart reviewed. Improving- on high flow oxygen 40L and FIO2 40% with oxygen saturations at 98% Family visiting at the bedside Objective Vital Signs - 12hr 12/18/18 12/18/18 12/18/18 02:00 03:01 03:14 Temperature Pulse Rate 95 H 75 Pulse Rate [ 85 Bilateral Throughout] Pulse Rate [ From Monitor] Respiratory 25 H 19 Rate Respiratory 23 Rate [Bilateral Throughout] Blood Pressure 113/57 113/57 O2 Sat by Pulse 94 88 Oximetry 12/18/18 12/18/18 12/18/18 04:00 05:01 06:00 Temperature 98.2 F Pulse Rate 82 77 75 Pulse Rate [ Bilateral Throughout] Pulse Rate [ 81 From Monitor] Respiratory 15 21 20 Rate Respiratory Rate [Bilateral Throughout] Blood Pressure 114/63 114/63 104/61 O2 Sat by Pulse 96 98 92 Oximetry 12/18/18 12/18/18 12/18/18 07:01 08:00 08:07 Temperature 98.2 F Pulse Rate 75 80 Pulse Rate [ Bilateral Throughout] Pulse Rate [ 80 From Monitor] Respiratory 29 H 21 Rate Respiratory Rate [Bilateral Throughout] Blood Pressure 104/61 111/60 O2 Sat by Pulse 100 95 100 Oximetry 12/18/18 12/18/18 12/18/18 08:25 09:00 10:00 Temperature Pulse Rate 85 88 Pulse Rate [ 78 Bilateral Throughout] Pulse Rate [ From Monitor] Respiratory 24 20 Rate Respiratory 20 Rate [Bilateral Throughout] Blood Pressure 104/61 115/61 O2 Sat by Pulse 93 90 Oximetry 12/18/18 12:00 Temperature 98.3 F Pulse Rate Pulse Rate [ Bilateral Throughout] Pulse Rate [ 86 From Monitor] Respiratory 22 Rate Respiratory Rate [Bilateral Throughout] Blood Pressure O2 Sat by Pulse 98 Oximetry Constitutional: alert, other (young AAM, normocephalic and atraumatic with normal respiratory effort at rest) Eyes: non-icteric ENT: oropharynx moist Neck: supple, no lymphadenopathy, no JVD Effort: normal Ascultation: Right: diminished breath sounds (right base), Bilateral: clear, other (Prolonged expiratory phase) Percussion: Bilateral: not dull Cardiovascular: regular rate and rhythm, other (S1,S2, no murmurs, gallops or rubs) Gastrointestinal: normoactive bowel sounds, soft, non-tender, non-distended Integumentary: normal Extremities: no cyanosis, no edema, pulses normal, no ischemia or petechiae Neurologic: normal mental status, non-focal exam, pupils equal and round, CN II- XII normal, motor strength normal and Psychiatric: mood appropriate, affect normal CBC and BMP: 12/15/18 04:26 12/15/18 04:26 ABG, PT/INR, D-dimer: ABG POC ABG pH 7.417 (7.35-7.45) 12/16/18 10:20 ABG pH 7.388 pH Units (7.350-7.450) 12/11/18 05:04 POC ABG pCO2 41.2 (35-45) 12/16/18 10:20 ABG pCO2 43.0 mm Hg 12/11/18 05:04 POC ABG pO2 71 (80-105) L 12/16/18 10:20 ABG pO2 71.8 mm Hg (80.0-90.0) L 12/11/18 05:04 POC ABG HCO3 26.6 (22-26 mml/L) 12/16/18 10:20 POC ABG Total CO2 28 (23-27mmol/L) 12/16/18 10:20 POC ABG O2 Sat 94 12/16/18 10:20 ABG O2 Saturation 95.1 % (95.0-99.0) 12/11/18 05:04 Abnormal lab findings: Abnormal Labs 12/09/18 12/09/18 12/10/18 23:10 23:10 04:56 WBC 12.2 H RBC 5.22 H Hgb MCV 83 L 83 L MCHC Lymph % (Auto) 11.6 L Ware % (Auto) Eos % (Auto) 4.7 H Ware # Eos # 0.5 H Seg Neutrophils % 77.4 H Seg Neuts % (Manual) 97.0 H Lymphocytes % (Manual) 2.0 L Seg Neutrophils # 7.9 H Seg Neutrophils # Man 11.8 H Lymphocytes # (Manual) 0.2 L POC ABG pH ABG pH POC ABG pCO2 POC ABG pO2 ABG pO2 ABG O2 Saturation ABG Base Excess ABG Hemoglobin Oxyhemoglobin Sodium Chloride Carbon Dioxide Creatinine 0.7 L Glucose POC Glucose Calcium 12/10/18 12/10/18 12/10/18 04:56 05:10 08:30 WBC RBC Hgb MCV MCHC Lymph % (Auto) Ware % (Auto) Eos % (Auto) Ware # Eos # Seg Neutrophils % Seg Neuts % (Manual) Lymphocytes % (Manual) Seg Neutrophils # Seg Neutrophils # Man Lymphocytes # (Manual) POC ABG pH ABG pH 7.269 L 7.318 L POC ABG pCO2 POC ABG pO2 ABG pO2 58.8 L ABG O2 Saturation 88.3 L ABG Base Excess -4.3 L -3.4 L ABG Hemoglobin 13.8 L 13.0 L Oxyhemoglobin 93.6 L 86.8 L Sodium Chloride Carbon Dioxide 20 L Creatinine Glucose 132 H POC Glucose Calcium 8.1 L 12/10/18 12/10/18 12/10/18 11:04 17:22 Unknown WBC RBC Hgb MCV MCHC Lymph % (Auto) Ware % (Auto) Eos % (Auto) Ware # Eos # Seg Neutrophils % Seg Neuts % (Manual) Lymphocytes % (Manual) Seg Neutrophils # Seg Neutrophils # Man Lymphocytes # (Manual) POC ABG pH 7.325 L ABG pH 7.285 L POC ABG pCO2 47.4 H POC ABG pO2 79 L ABG pO2 195.2 H ABG O2 Saturation 99.1 H ABG Base Excess -3.9 L ABG Hemoglobin Oxyhemoglobin Sodium Chloride Carbon Dioxide Creatinine Glucose POC Glucose 146 H Calcium 12/10/18 12/11/18 12/11/18 Unknown 03:43 03:43 WBC 13.7 H RBC Hgb MCV 81 L MCHC 35 H Lymph % (Auto) Ware % (Auto) Eos % (Auto) Ware # Eos # Seg Neutrophils % Seg Neuts % (Manual) Lymphocytes % (Manual) Seg Neutrophils # Seg Neutrophils # Man Lymphocytes # (Manual) POC ABG pH ABG pH 7.327 L POC ABG pCO2 POC ABG pO2 ABG pO2 74.8 L ABG O2 Saturation 94.7 L ABG Base Excess ABG Hemoglobin 13.7 L Oxyhemoglobin 93.1 L Sodium Chloride Carbon Dioxide Creatinine Glucose 153 H POC Glucose Calcium 12/11/18 12/11/18 12/15/18 05:04 17:28 04:26 WBC RBC 5.39 H Hgb 15.3 H MCV 81 L MCHC 35 H Lymph % (Auto) Ware % (Auto) 10.4 H Eos % (Auto) 5.2 H Ware # 1.0 H Eos # 0.5 H Seg Neutrophils % Seg Neuts % (Manual) Lymphocytes % (Manual) Seg Neutrophils # Seg Neutrophils # Man Lymphocytes # (Manual) POC ABG pH ABG pH POC ABG pCO2 POC ABG pO2 ABG pO2 71.8 L ABG O2 Saturation ABG Base Excess ABG Hemoglobin 11.9 L Oxyhemoglobin 93.7 L Sodium Chloride Carbon Dioxide Creatinine Glucose POC Glucose 114 H Calcium 12/15/18 12/15/18 12/16/18 04:26 21:43 10:20 WBC RBC Hgb MCV MCHC Lymph % (Auto) Ware % (Auto) Eos % (Auto) Ware # Eos # Seg Neutrophils % Seg Neuts % (Manual) Lymphocytes % (Manual) Seg Neutrophils # Seg Neutrophils # Man Lymphocytes # (Manual) POC ABG pH ABG pH POC ABG pCO2 POC ABG pO2 79 L 71 L ABG pO2 ABG O2 Saturation ABG Base Excess ABG Hemoglobin Oxyhemoglobin Sodium 135 L Chloride 96.8 L Carbon Dioxide Creatinine 0.7 L Glucose POC Glucose Calcium Chest x-ray: image reviewed Allied health notes reviewed: nursing
--- NOTE | 2018-12-18 13:43 | Progress Note ---
Assessment and Plan Assessment and plan: The high probability of a clinically significant, sudden or life threatening deterioration of the [] system(s) required my full and direct attention, intervention and personal management. The aggregate critical care time was [] minutes. This time is in addition to time spent performing reported procedures but includes the following: [x] Data Review and interpretation [x] Patient assessment and monitoring of vital signs [x] Documentation [x] Medication orders and management Total Time Spent with Patient (Minutes): 29 - Patient Problems (1) Respiratory failure Current Visit: Yes Status: Acute Qualifiers: Chronicity: acute Respiratory failure complication: hypoxia Qualified Code(s): J96.01 - Acute respiratory failure with hypoxia Plan to address problem: Patient now extubated. Has some right-sided chest pain from where patient had old pneumothorax. (2) Status asthmaticus Current Visit: Yes Status: Acute Qualifiers: Asthma severity: severe Asthma persistence: persistent Qualified Code(s): J45.52 - Severe persistent asthma with status asthmaticus Plan to address problem: She has wheezing still expiratory wheezing. Accident stable. Stable transfer to floor. (3) Bipolar disorder Current Visit: Yes Status: Acute Plan to address problem: At present no evidence of a manic movement continue Seroquel 50 daily at bedtime. History Interval history: pt feels much better sore throat Family at bedside all concerns answered patient seemed to be oxygenating well on high flow O2. Stable enough to be discharged to stepdown. Hospitalist Physical - Constitutional Vitals: Temp Pulse Resp BP Pulse Ox 98.3 F 86 22 115/61 98 12/18/18 12:00 12/18/18 12:00 12/18/18 12:00 12/18/18 10:00 12/18/18 12:00 General appearance: Present: no acute distress, cachectic, disheveled - EENT Eyes: Present: PERRL, EOM intact ENT: hearing intact, clear oral mucosa, dentition normal - Neck Neck: Present: supple, normal ROM - Respiratory Respiratory effort: normal Respiratory: bilateral: rhonchi, wheezing - Cardiovascular Rhythm: regular - Extremities Extremities: no ischemia, pulses symmetrical, No edema Peripheral Pulses: within normal limits - Abdominal General gastrointestinal: soft, non-tender, non-distended, normal bowel sounds - Integumentary Integumentary: Present: clear, warm, dry - Psychiatric Psychiatric: appropriate mood/affect, intact judgment & insight - Neurologic Neurologic: CNII-XII intact, focal deficits Results - Labs CBC & Chem 7: 12/15/18 04:26 12/15/18 04:26 Labs: Laboratory Last Values WBC 9.6 K/mm3 (4.5-11.0) 12/15/18 04:26 RBC 5.39 M/mm3 (3.65-5.03) H 12/15/18 04:26 Hgb 15.3 gm/dl (11.8-15.2) H 12/15/18 04:26 Hct 43.5 % (35.5-45.6) 12/15/18 04:26 MCV 81 fl (84-94) L 12/15/18 04:26 MCH 28 pg (28-32) 12/15/18 04:26 MCHC 35 % (32-34) H 12/15/18 04:26 RDW 13.9 % (13.2-15.2) 12/15/18 04:26 Plt Count 218 K/mm3 (140-440) 12/15/18 04:26 Lymph % (Auto) 21.4 % (13.4-35.0) 12/15/18 04:26 [place]an % (Auto) 10.4 % (0.0-7.3) H 12/15/18 04:26 Eos % (Auto) 5.2 % (0.0-4.3) H 12/15/18 04:26 Baso % (Auto) 0.3 % (0.0-1.8) 12/15/18 04:26 Lymph # 2.0 K/mm3 (1.2-5.4) 12/15/18 04:26 [place]an # 1.0 K/mm3 (0.0-0.8) H 12/15/18 04:26 Eos # 0.5 K/mm3 (0.0-0.4) H 12/15/18 04:26 Baso # 0.0 K/mm3 (0.0-0.1) 12/15/18 04:26 Add Manual Diff Complete 12/10/18 04:56 Total Counted 100 12/10/18 04:56 Seg Neutrophils % 62.7 % (40.0-70.0) 12/15/18 04:26 Seg Neuts % (Manual) 97.0 % (40.0-70.0) H 12/10/18 04:56 0 % 12/10/18 04:56 2.0 % (13.4-35.0) L 12/10/18 04:56 Reactive Lymphs % (Man) 0 % 12/10/18 04:56 1.0 % (0.0-7.3) 12/10/18 04:56 0 % (0.0-4.3) 12/10/18 04:56 0 % (0.0-1.8) 12/10/18 04:56 0 % 12/10/18 04:56 0 % 12/10/18 04:56 0 % 12/10/18 04:56 0 % 12/10/18 04:56 Nucleated RBC % Not Reportable 12/10/18 04:56 Seg Neutrophils # 6.0 K/mm3 (1.8-7.7) 12/15/18 04:26 Seg Neutrophils # Man 11.8 K/mm3 (1.8-7.7) H 12/10/18 04:56 Band Neutrophils # 0.0 K/mm3 12/10/18 04:56 0.2 K/mm3 (1.2-5.4) L 12/10/18 04:56 Abs React Lymphs (Man) 0.0 K/mm3 12/10/18 04:56 0.1 K/mm3 (0.0-0.8) 12/10/18 04:56 0.0 K/mm3 (0.0-0.4) 12/10/18 04:56 0.0 K/mm3 (0.0-0.1) 12/10/18 04:56 0.0 K/mm3 12/10/18 04:56 0.0 K/mm3 12/10/18 04:56 0.0 K/mm3 12/10/18 04:56 Blast Cells # 0.0 K/mm3 12/10/18 04:56 WBC Morphology Not Reportable 12/10/18 04:56 Hypersegmented Neuts Not Reportable 12/10/18 04:56 Hyposegmented Neuts Not Reportable 12/10/18 04:56 Hypogranular Neuts Not Reportable 12/10/18 04:56 Not Reportable 12/10/18 04:56 Not Reportable 12/10/18 04:56 Not Reportable 12/10/18 04:56 Not Reportable 12/10/18 04:56 Not Reportable 12/10/18 04:56 Not Reportable 12/10/18 04:56 Consistent w auto 12/10/18 04:56 Not Reportable 12/10/18 04:56 Plt Clumps, EDTA Not Reportable 12/10/18 04:56 Not Reportable 12/10/18 04:56 Not Reportable 12/10/18 04:56 Not Reportable 12/10/18 04:56 Plt Morphology Comment Not Reportable 12/10/18 04:56 RBC Morphology Normal 12/10/18 04:56 Dimorphic RBCs Not Reportable 12/10/18 04:56 Not Reportable 12/10/18 04:56 Not Reportable 12/10/18 04:56 Not Reportable 12/10/18 04:56 Not Reportable 12/10/18 04:56 Not Reportable 12/10/18 04:56 Not Reportable 12/10/18 04:56 Not Reportable 12/10/18 04:56 Not Reportable 12/10/18 04:56 Not Reportable 12/10/18 04:56 Not Reportable 12/10/18 04:56 Not Reportable 12/10/18 04:56 Not Reportable 12/10/18 04:56 Not Reportable 12/10/18 04:56 Not Reportable 12/10/18 04:56 Not Reportable 12/10/18 04:56 Not Reportable 12/10/18 04:56 Not Reportable 12/10/18 04:56 Not Reportable 12/10/18 04:56 Not Reportable 12/10/18 04:56 Acanthocytes (Spur) Not Reportable 12/10/18 04:56 Rouleaux Not Reportable 12/10/18 04:56 Not Reportable 12/10/18 04:56 Not Reportable 12/10/18 04:56 Not Reportable 12/10/18 04:56 Not Reportable 12/10/18 04:56 Hem Pathologist Commnt No 12/10/18 04:56 POC ABG pH 7.417 (7.35-7.45) 12/16/18 10:20 ABG pH 7.388 pH Units (7.350-7.450) 12/11/18 05:04 POC ABG pCO2 41.2 (35-45) 12/16/18 10:20 ABG pCO2 43.0 mm Hg 12/11/18 05:04 POC ABG pO2 71 (80-105) L 12/16/18 10:20 ABG pO2 71.8 mm Hg (80.0-90.0) L 12/11/18 05:04 POC ABG HCO3 26.6 (22-26 mml/L) 12/16/18 10:20 ABG HCO3 25.3 mmol/L (20.0-26.0) 12/11/18 05:04 POC ABG Total CO2 28 (23-27mmol/L) 12/16/18 10:20 POC ABG O2 Sat 94 12/16/18 10:20 ABG O2 Saturation 95.1 % (95.0-99.0) 12/11/18 05:04 ABG O2 Content 19.8 (0.0-44) 12/11/18 05:04 POC ABG Base Excess 2 ((-2) - (+3)mmol/L) 12/16/18 10:20 ABG Base Excess 0.1 mmol/L (-2.0-3.0) 12/11/18 05:04 ABG Hemoglobin 11.9 gm/dl (14.0-18.0) L 12/11/18 05:04 ABG Carboxyhemoglobin 1.0 % (0.0-5.0) 12/11/18 05:04 ABG Methemoglobin 0.5 % (0.0-1.5) 12/11/18 05:04 93.7 % (95.0-99.0) L 12/11/18 05:04 36 % 12/16/18 10:20 Sodium 135 mmol/L (137-145) L 12/15/18 04:26 Potassium 3.7 mmol/L (3.6-5.0) 12/15/18 04:26 Chloride 96.8 mmol/L (98-107) L 12/15/18 04:26 Carbon Dioxide 27 mmol/L (22-30) 12/15/18 04:26 15 mmol/L 12/15/18 04:26 BUN 15 mg/dL (9-20) 12/15/18 04:26 0.7 mg/dL (0.8-1.5) L 12/15/18 04:26 Estimated GFR > 60 ml/min 12/15/18 04:26 21 % 12/15/18 04:26 Glucose 90 mg/dL (75-100) 12/15/18 04:26 POC Glucose 114 (70-105) H 12/11/18 17:28 Lactic Acid 1.80 mmol/L (0.7-2.0) 12/09/18 23:13 Calcium 8.4 mg/dL (8.4-10.2) 12/15/18 04:26 Phosphorus 4.30 mg/dL (2.5-4.5) 12/15/18 04:26 Magnesium 1.90 mg/dL (1.7-2.3) 12/15/18 04:26 1.00 mg/dL (0.1-1.2) 12/09/18 23:10 AST 21 units/L (5-40) 12/09/18 23:10 ALT 13 units/L (7-56) 12/09/18 23:10 94 units/L (35-129) 12/09/18 23:10 < 0.010 ng/mL (0.00-0.029) 12/13/18 15:25 1.30 mg/dL (0.00-1.30) 12/10/18 12:16 7.6 g/dL (6.3-8.2) 12/09/18 23:10 4.3 g/dL (3.9-5) 12/09/18 23:10 1.3 % 12/09/18 23:10 Yellow (Yellow) 12/09/18 02:19 Clear (Clear) 12/09/18 02:19 7.0 (5.0-7.0) 12/09/18 02:19 Ur Specific [place] [facility] [employer] 1.028 (1.003-1.030) 12/09/18 02:19 <15 mg/dl mg/dL (Negative) 12/09/18 02:19 Neg mg/dL (Negative) 12/09/18 02:19 Neg mg/dL (Negative) 12/09/18 02:19 Neg (Negative) 12/09/18 02:19 Neg (Negative) 12/09/18 02:19 Neg (Negative) 12/09/18 02:19 4.0 mg/dL (<2.0) 12/09/18 02:19 Ur Leukocyte Esterase Neg (Negative) 12/09/18 02:19 2.0 /HPF (0.0-6.0) 12/09/18 02:19 1.0 /HPF (0.0-6.0) 12/09/18 02:19 Few /HPF 12/09/18 02:19 Presumptive negative 12/09/18 22:45 Presumptive negative 12/09/18 22:45 Ur Barbiturates Screen Presumptive negative 12/09/18 22:45 Ur Phencyclidine Scrn Presumptive negative 12/09/18 22:45 Ur Amphetamines Screen Presumptive negative 12/09/18 22:45 U Benzodiazepines Scrn Presumptive negative 12/09/18 22:45 Presumptive negative 12/09/18 22:45 U Marijuana (THC) Screen Presumptive positive 12/09/18 22:45 Disclamer 12/09/18 22:45 - Imaging and Cardiology Chest x-ray: report reviewed, image reviewed Active Medications - Current Medications Current Medications: Generic Name Dose Route Start Last Admin Trade Name Freq PRN Reason Stop Dose Admin Albuterol 2.5 mg 12/17/18 08:05 Proventil IH Q4HRT PRN Shortness Of Breath Albuterol/Ipratropium 1 ampul 12/17/18 14:00 12/18/18 08:06 Duoneb *Not For Prn Use* IH 1 ampul Q6HRT KELLE Administration Alprazolam 0.5 mg 12/17/18 12:00 12/18/18 09:32 Xanax PO 0.5 mg Q12HR KELLE Administration Arformoterol Tartrate 15 mcg 12/17/18 20:00 12/18/18 08:06 Brovana Nebu IH 15 mcg Q12HRT KELLE Administration Budesonide 0.5 mg 12/17/18 20:00 12/18/18 08:06 Pulmicort IH 0.5 mg Q12HRT KELLE Administration Enoxaparin Sodium 40 mg 12/13/18 22:00 12/17/18 21:18 Lovenox SUB-Q 40 mg QDAY@2200 KELLE Administration Famotidine 20 mg 12/13/18 14:00 12/18/18 09:32 Pepcid PO 20 mg DAILY KELLE Administration Hydromorphone HCl 0.5 mg 12/15/18 12:18 Dilaudid IV Q8H PRN Pain , Severe (7-10) Levofloxacin/Dextrose 750 mg in 150 mls @ 100 mls/hr 12/17/18 14:00 12/17/18 15:47 Levaquin 750mg/150ml IV 100 mls/hr Q24H KELLE Administration Protocol Ketorolac Tromethamine 15 mg 12/15/18 12:12 12/15/18 12:35 Toradol IV 12/20/18 12:11 15 mg Q8H PRN Administration Pain, Moderate (4-6) Oxycodone/Acetaminophen 1 tab 12/13/18 17:24 12/18/18 09:32 Percocet 5/325 PO 1 tab Q6H PRN Administration Pain, Moderate (4-6) Quetiapine Fumarate 50 mg 12/17/18 22:00 12/17/18 21:18 Seroquel PO 50 mg QHS KELLE Administration Nutrition/Malnutrition Assess - Dietary Evaluation Nutrition/Malnutrition Findings: Nutrition Notes Start: 12/10/18 11:30 Freq: Status: Active Protocol: Document 12/17/18 14:35 RM (Rec: 12/17/18 14:40 RM [id number]) Nutrition Notes Initial or Follow up Reassessment Other Pertinent Diagnosis Asthma, respiratory acidosis, bipolar disorder, ARF, peach allergy Current Diet Regular w/Ensure Enlive 1 daily Labs/Tests Reviewed Pertinent Medications Reviewed Height 5 ft 7 in Weight 61 kg [place] Body Weight (kg) 67.27 BMI 21.0 Subjective/Other Information Pt and pt girlfriend in room at time of visit. Pt stated that his appetite is good and that he eats most of his meals . Noted breakfast at bedside w /none eaten. Pt girlfriend stated that pt did not eat breakfast d/t being on BiPAP this morning. Pt stated that he is not drinking the Ensure Enlive d/t disliking the chocolate flavor. Burn Absent Trauma Absent #1 Nutrition Diagnosis Inadequate oral intake Diagnosis Progress(for reassessment Continues documentation) Is patient on ventilator? No Is Patient Ambulatory and/or Out of Bed No REE-([place]-[facility]. Jeor-confined to bed) 9065.544 Calculation Used for Recommendations [facility] Additional Notes Protein: 49-61g (0.8-1g/kg) Fluids: 1 ml/kcal Nutrition Intervention Change Diet Order: Continue current Add Supplement/Snack (indicate name/kcal Ensure Enlive Vanilla 1 daily /protein ) Provides kCal: 350 Provides Protein (gm) 20 Goal #1 Meet at least 75% of energy and protein needs Anticipated Discharge Needs: Regular diet Follow-Up By: 12/21/18 Additional Comments Follow for PO and ONS intakes
[2018-12-18] MEDS: LEVAQUIN 750MG/150ML 750 MG/150 ML BAG IV SCH (14:31)
[2018-12-18] MEDS: LOVENOX SUB-Q SCH (22:06)
[2018-12-19] MEDS: DUONEB *Not for PRN Use IH SCH ×4 (02:00→19:53)
[2018-12-19] MEDS: BROVANA NEBU IH SCH ×2 (07:34→19:53)
[2018-12-19] MEDS: PULMICORT IH SCH ×2 (07:34→19:53)
[2018-12-19] MEDS: PEPCID PO SCH (09:48)
[2018-12-19] MEDS: XANAX PO SCH ×2 (09:48→23:57)
--- NOTE | 2018-12-19 11:13 | Consultation ---
History of Present Illness - Reason for Consult Consult date: 12/19/18 New RLL infiltrate Requesting physician: JENSEN PATEL - History of Present Illness This patient is a 18 year old male with a past medical history of asthma, biopolar and ADHS that presents to the ED on 12/09/18 with complaints of shortness of breath X 2 days and productive cough of green phlegm. In the ED he was found to be in respiratory distress became hypoxic and was intubated. On admission WBC 10.2, Creatinine 0.7, Temperature 98.8, HR 98. UA w/o pyuria.. Initial CXR shows right lower lobe and probable right middle lobe atectasis/postobstructive pneumonia. an endobronchial lesion/mucous plug.aspiration possible. Bilateral chest tubes placed 12/12/18. Resolution of pneumothoraces 12/14/18.. s/p removal of bilateral chest tubes. Lungs well exp anded. Rpt CXR 12/17/18 shows redevelopment of RLL infiltrate. Minimal airspace disease remains in the left lower lung. Hence ID was consulted for antibiotic recommendations. Blood cultures show no growth Tracheal aspirate no growth. Review of Systems: General: no fever, chills, nightsweats, unintentional weight change, or change in appetite Cutaneous: no rash, pruritus Head: no headaches or injury Eyes: no changes in vision, eye pain, double vision Ears: no ear pain, ear discharge, ringing or hearing loss Nose: no nose bleeding, stuffiness Mouth & throat: no bleeding gums, no horseness, no dental problems, or swollen glands Neck: no pain, node enlargement/lumps, tyroid enlargement or tenderness Respiratory: + dry cough, no wheezing, sputum, hemoptysis, pleuritic chest pain Cardiovascular: no chest pain, leg edema, cyanosis, GOULD, orthopnea Musculoskeletal: no decreased joint motion, bone or joint pain, joint swelling, muscle aches Gastrointestinal: no nausea, vomiting, hematemesis, diarrhea, constipation, melena, bright red blood in stools, fecal incontinence, jaundice Genitourinary/Reproductive: no frequent urination, no dysuria, hematuria, incontinence Neurogical: no seizures, no headaches, no weakness, no paresthesias, no loss of speech or vision; no memory loss, no vertigo, no tremors, no numbness Psychiatric: stable mood; no excessive anxiety, sadness or moodiness Past History Past Medical History: other (asthma, bipolar) Past Surgical History: tonsillectomy (no complications) Social history: smoking (1-2 cigs per day). denies: alcohol abuse Family history: no significant family history Medications and Allergies Allergies Allergy/AdvReac Type Severity Reaction Status Date / Time peach [[place]] Allergy Severe Anaphylaxis Verified 01/29/15 07:49 pollen extracts Allergy Itching Verified 01/29/15 07:56 venom-honey bee Allergy Hives Verified 01/29/15 07:56 [bee venom (honey bee)] Home Medications Medication Instructions Recorded Confirmed Last Taken Type Fluticasone/Salmeterol [Advair 1 puff IH BID 01/17/13 12/10/18 Unknown History Diskus 100-50 mcg] Nebulizer [Airs Disposable 1 each MC PRN 01/17/13 12/10/18 Unknown History Nebulizer] ALBUTEROL NEB's [Proventil 0.083% 2.5 mg IH TID PRN #1 box 04/13/18 12/10/18 Unknown Rx NEBS] Active Meds: Active Medications Albuterol (Proventil) 2.5 mg IH Q4HRT PRN PRN Reason: Shortness Of Breath Albuterol/Ipratropium (Duoneb *Not For Prn Use*) 1 ampul IH Q6HRT [facility] Last Admin: 12/19/18 07:33 Dose: Not Given Documented by: Alprazolam (Xanax) 0.5 mg PO Q12HR [facility] Last Admin: 12/19/18 09:48 Dose: 0.5 mg Documented by: Arformoterol Tartrate (Brovana Nebu) 15 mcg IH Q12HRT [facility] Last Admin: 12/19/18 07:34 Dose: Not Given Documented by: Budesonide (Pulmicort) 0.5 mg IH Q12HRT [facility] Last Admin: 12/19/18 07:34 Dose: Not Given Documented by: Enoxaparin Sodium (Lovenox) 40 mg SUB-Q QDAY@2200 [facility] Last Admin: 12/18/18 22:06 Dose: 40 mg Documented by: Famotidine (Pepcid) 20 mg PO DAILY [facility] Last Admin: 12/19/18 09:48 Dose: 20 mg Documented by: Hydromorphone HCl (Dilaudid) 0.5 mg IV Q8H PRN PRN Reason: Pain , Severe (7-10) Levofloxacin/Dextrose (Levaquin 750mg/150ml) 750 mg in 150 mls @ 100 mls/hr IV Q24H KELLE; Protocol Last Admin: 12/18/18 14:31 Dose: 100 mls/hr Documented by: Ketorolac Tromethamine (Toradol) 15 mg IV Q8H PRN PRN Reason: Pain, Moderate (4-6) Stop: 12/20/18 12:11 Last Admin: 12/15/18 12:35 Dose: 15 mg Documented by: Oxycodone/Acetaminophen (Percocet 5/325) 1 tab PO Q6H PRN PRN Reason: Pain, Moderate (4-6) Last Admin: 12/18/18 09:32 Dose: 1 tab Documented by: Quetiapine Fumarate (Seroquel) 50 mg PO QHS [facility] Last Admin: 12/18/18 22:06 Dose: 50 mg Documented by: Physical Examination - Physical Exam Narrative exam: Constitutional: Alert, cooperative. No acute distress Head, Ears, Nose: Normocephalic, atraumatic. External ears, nose normal Eyes: Conjunctivae/corneas clear. No icterus. No ptosis. Neck: Supple, no meningeal signs Oral: dentition fair. No thrush Cardiovascular: S1, S2 normal. Respiratory: Good air entry, clear to auscultation bilaterally GI: Soft, non-tender; bowel sounds normal. No peritoneal signs Musculoskeletal: No pedal edema, no cyanosis. Skin: No rash or abscess. Hem/Lymphatic: No palpable cervical or supraclavicular nodes. No lymphangitis Psych: Mood ok. Affect normal Neurological: Awake, alert, oriented. - Constitutional Vitals: Vital Signs Temp Pulse Resp BP Pulse Ox 97.8 F 84 20 108/68 95 12/19/18 05:12/19/18 05:12/19/18 05:12/19/18 05:12/19/18 07:35 Temperature -Last 24 Hours Temperature 97.8 F Temperature 98.5 F Temperature 98.5 F Temperature 97.8 F Temperature 98.7 F Temperature 98.3 F Results - Labs CBC & Chem 7: 12/15/18 04:26 12/15/18 04:26 - Imaging and Cardiology Chest x-ray: report reviewed ( redevelopment of RLL infiltrate. Minimal airspace diseas remains in the left lower lung. ) Assessment and Plan Cultures: 12/09/18: Blood: no growth 12/10/18 Tracheal aspirate: no growth 18 year old male with a past medical history of asthma, biopolar and ADHD that presents to the ED on 12/09/18 with complaints of shortness of breath X 2 days and productive cough of green phlegm. In the ED he was found to be in respiratory distress, became hypoxic and was intubated. Admitted with: 1. New Right Lower Lobe Infiltrate with possible aspiration PNA: Now extubated. BIlateral chest tubes placed 12/12/18. Resolution of pneumothoraces 12/14/18.. s/p removal of bilateral chest tubes. Lungs well expanded. Rpt CXR 12/17/18 cristopher w redevelopment of RLL infiltrate. Minimal airspace disease remains in the left lower lung. Currently being treated with levofloxacin. 2. Leukocytosis: Now resolved. No fevers. Blood cultures show no growth. 3. Acute Respiratory failure s/p extubation: now on room air 4.. Status Ashmaticus with acute asthma excacerbation with bronchitis 5. THC abuse 6. Tobacco abuse 7. Bipolar Disorder Recommendations: -Discontinue Levofloxacin -Start Ceftriaxone2 gm IV every 24 hours and Flagyl 500 mg IV every 8 hours - HIV test ordered [facility] M: [phone] O:[phone]
--- NOTE | 2018-12-19 13:56 | Progress Note ---
Assessment and Plan Acute respiratory failure s/p extubation Bilateral pneumothoraces s/p chest tubes Status Asthmaticus with Acute asthma exacerbation with bronchitis THC use disorder Tobacco use disorder Respiratory acidosis Possible Aspiration pneumonia, new RLL infiltrate ADHD Bipolar Anxiety disorder Leukocytosis, resolved -Complete levofloxacin for 7 days of therapy -Continue with incentive spirometry -ABG on room air - Accucheck with glycemic control, target blood glucose <180 mg/dL - VTE prophylaxis - continue systemic steroid taper - continue Bronchodilators with pulmonary hygiene per RT - PT/OT increase activity -Continue anxieolytics -Updated patient and his family at the bedside Discussed with RT/RN re care plan OK to discharge in am on oral antibitoics to complete course. Out patien pulmonary follow up in 2 weeks Discharge on Symbicort 80/4.5, Montelukast and prn albuterol CONDITION: FAIR PROGNOSIS: FAIR CODE STATUS: FULL CODE I have spent ( >35 ) minutes with the patient w/ >50% of the time spent counseling and/or coordinating care for this patient. Counseling topics and/or how time was spent coordinating patient's care is outlined in the impression and plan above. Subjective Date of service: 12/19/18 Principal diagnosis: Ac hypoxemic resp failure; Status Asthmaticus; bilateral pneumothoraces Interval history: Patient is seen today for: Acute respiratory failure s/p MVS ;Status Asthmaticus with Acute asthma exacerbation with bronchitis; Bilateral pneumothoraces s/p chest tubes Seen and examined at bedside; 24hour events reviewed; nursing and respiratory care staff consulted; no adverse overnight events reported to me; Awake and alert, no fevers, no chest pain, no vomiting no diarrhea. Vitals, labs, medications, chart reviewed. Improving, off supplemental oxygen. Ambulating, denies any chest pain or shortness of breath Girlfriend at the bedside Objective Vital Signs - 12hr 12/19/18 12/19/18 12/19/18 05:31 07:35 12:17 Temperature 97.8 F 97.9 F Pulse Rate 84 93 H Respiratory 20 14 Rate Blood Pressure 108/68 107/72 O2 Sat by Pulse 95 95 96 Oximetry Constitutional: alert, other (young AAM, normocephalic and atraumatic with normal respiratory effort at rest) Eyes: non-icteric ENT: oropharynx moist Neck: supple, no lymphadenopathy, no JVD Effort: normal Ascultation: Right: diminished breath sounds (right base), Bilateral: clear, other (Prolonged expiratory phase) Percussion: Bilateral: not dull Cardiovascular: regular rate and rhythm, other (S1,S2, no murmurs, gallops or rubs) Gastrointestinal: normoactive bowel sounds, soft, non-tender, non-distended Integumentary: normal Extremities: no cyanosis, no edema, pulses normal, no ischemia or petechiae Neurologic: normal mental status, non-focal exam, pupils equal and round, CN II- XII normal, motor strength normal and Psychiatric: mood appropriate, affect normal CBC and BMP: 12/15/18 04:26 12/15/18 04:26 ABG, PT/INR, D-dimer: ABG POC ABG pH 7.417 (7.35-7.45) 12/16/18 10:20 ABG pH 7.388 pH Units (7.350-7.450) 12/11/18 05:04 POC ABG pCO2 41.2 (35-45) 12/16/18 10:20 ABG pCO2 43.0 mm Hg 12/11/18 05:04 POC ABG pO2 71 (80-105) L 12/16/18 10:20 ABG pO2 71.8 mm Hg (80.0-90.0) L 12/11/18 05:04 POC ABG HCO3 26.6 (22-26 mml/L) 12/16/18 10:20 POC ABG Total CO2 28 (23-27mmol/L) 12/16/18 10:20 POC ABG O2 Sat 94 12/16/18 10:20 ABG O2 Saturation 95.1 % (95.0-99.0) 12/11/18 05:04 Abnormal lab findings: Abnormal Labs 12/09/18 12/09/18 12/10/18 23:10 23:10 04:56 WBC 12.2 H RBC 5.22 H Hgb MCV 83 L 83 L MCHC Lymph % (Auto) 11.6 L [place] % (Auto) Eos % (Auto) 4.7 H [place] # Eos # 0.5 H Seg Neutrophils % 77.4 H Seg Neuts % (Manual) 97.0 H Lymphocytes % (Manual) 2.0 L Seg Neutrophils # 7.9 H Seg Neutrophils # Man 11.8 H Lymphocytes # (Manual) 0.2 L POC ABG pH ABG pH POC ABG pCO2 POC ABG pO2 ABG pO2 ABG O2 Saturation ABG Base Excess ABG Hemoglobin Oxyhemoglobin Sodium Chloride Carbon Dioxide Creatinine 0.7 L Glucose POC Glucose Calcium 12/10/18 12/10/18 12/10/18 04:56 05:10 08:30 WBC RBC Hgb MCV MCHC Lymph % (Auto) [place] % (Auto) Eos % (Auto) [place] # Eos # Seg Neutrophils % Seg Neuts % (Manual) Lymphocytes % (Manual) Seg Neutrophils # Seg Neutrophils # Man Lymphocytes # (Manual) POC ABG pH ABG pH 7.269 L 7.318 L POC ABG pCO2 POC ABG pO2 ABG pO2 58.8 L ABG O2 Saturation 88.3 L ABG Base Excess -4.3 L -3.4 L ABG Hemoglobin 13.8 L 13.0 L Oxyhemoglobin 93.6 L 86.8 L Sodium Chloride Carbon Dioxide 20 L Creatinine Glucose 132 H POC Glucose Calcium 8.1 L 12/10/18 12/10/18 12/10/18 11:04 17:22 Unknown WBC RBC Hgb MCV MCHC Lymph % (Auto) [place] % (Auto) Eos % (Auto) [place] # Eos # Seg Neutrophils % Seg Neuts % (Manual) Lymphocytes % (Manual) Seg Neutrophils # Seg Neutrophils # Man Lymphocytes # (Manual) POC ABG pH 7.325 L ABG pH 7.285 L POC ABG pCO2 47.4 H POC ABG pO2 79 L ABG pO2 195.2 H ABG O2 Saturation 99.1 H ABG Base Excess -3.9 L ABG Hemoglobin Oxyhemoglobin Sodium Chloride Carbon Dioxide Creatinine Glucose POC Glucose 146 H Calcium 12/10/18 12/11/18 12/11/18 Unknown 03:43 03:43 WBC 13.7 H RBC Hgb MCV 81 L MCHC 35 H Lymph % (Auto) [place] % (Auto) Eos % (Auto) [place] # Eos # Seg Neutrophils % Seg Neuts % (Manual) Lymphocytes % (Manual) Seg Neutrophils # Seg Neutrophils # Man Lymphocytes # (Manual) POC ABG pH ABG pH 7.327 L POC ABG pCO2 POC ABG pO2 ABG pO2 74.8 L ABG O2 Saturation 94.7 L ABG Base Excess ABG Hemoglobin 13.7 L Oxyhemoglobin 93.1 L Sodium Chloride Carbon Dioxide Creatinine Glucose 153 H POC Glucose Calcium 12/11/18 12/11/18 12/15/18 05:04 17:28 04:26 WBC RBC 5.39 H Hgb 15.3 H MCV 81 L MCHC 35 H Lymph % (Auto) [place] % (Auto) 10.4 H Eos % (Auto) 5.2 H [place] # 1.0 H Eos # 0.5 H Seg Neutrophils % Seg Neuts % (Manual) Lymphocytes % (Manual) Seg Neutrophils # Seg Neutrophils # Man Lymphocytes # (Manual) POC ABG pH ABG pH POC ABG pCO2 POC ABG pO2 ABG pO2 71.8 L ABG O2 Saturation ABG Base Excess ABG Hemoglobin 11.9 L Oxyhemoglobin 93.7 L Sodium Chloride Carbon Dioxide Creatinine Glucose POC Glucose 114 H Calcium 12/15/18 12/15/18 12/16/18 04:26 21:43 10:20 WBC RBC Hgb MCV MCHC Lymph % (Auto) [place] % (Auto) Eos % (Auto) [place] # Eos # Seg Neutrophils % Seg Neuts % (Manual) Lymphocytes % (Manual) Seg Neutrophils # Seg Neutrophils # Man Lymphocytes # (Manual) POC ABG pH ABG pH POC ABG pCO2 POC ABG pO2 79 L 71 L ABG pO2 ABG O2 Saturation ABG Base Excess ABG Hemoglobin Oxyhemoglobin Sodium 135 L Chloride 96.8 L Carbon Dioxide Creatinine 0.7 L Glucose POC Glucose Calcium Allied health notes reviewed: nursing
[2018-12-19] MEDS: LEVAQUIN 750MG/150ML 750 MG/150 ML BAG IV SCH (14:00)
[2018-12-19] MEDS: FLAGYL 500 MG/100 ML 500 MG/100 ML BAG IV SCH ×2 (15:15→23:55)
[2018-12-19] MEDS: ROCEPHIN/NS 2 GM/100 ML 2 GM/100 ML BAG IV SCH (15:16)
--- NOTE | 2018-12-19 16:41 | Progress Note ---
Assessment and Plan Assessment and plan: The high probability of a clinically significant, sudden or life threatening deterioration of the [] system(s) required my full and direct attention, intervention and personal management. The aggregate critical care time was [] minutes. This time is in addition to time spent performing reported procedures but includes the following: [x] Data Review and interpretation [x] Patient assessment and monitoring of vital signs [x] Documentation [x] Medication orders and management - Patient Problems (1) Respiratory failure Current Visit: Yes Status: Acute Qualifiers: Chronicity: acute Respiratory failure complication: hypoxia Qualified Code(s): J96.01 - Acute respiratory failure with hypoxia Plan to address problem: 2 with acute respiratory failure secondary to status asthmaticus. Patient has had significant improvement over the past 24-48 hours. Discharge from ICU. Today improved should be able to go home in a.m. with Symbicort 80/4 of a Bernabe 500 mg 7 days and Singulair once daily. steriod taper (2) Status asthmaticus Current Visit: Yes Status: Acute Qualifiers: Asthma severity: severe Asthma persistence: persistent Qualified Code(s): J45.52 - Severe persistent asthma with status asthmaticus Plan to address problem: . . Stable transfer to floor. Verbalizes discharge home in a.m. Taper steroids continue Levaquin. (3) Bipolar disorder Current Visit: Yes Status: Acute Plan to address problem: At present no evidence of a manic movement continue Seroquel 50 daily at bedtime. History Interval history: patient doing much better today. Looks much more calm. Oxygenating well with just 2 L nasal cannula Hospitalist Physical - Constitutional Vitals: Temp Pulse Resp BP Pulse Ox 97.9 F 90 20 107/72 96 12/19/18 12:17 12/19/18 14:00 12/19/18 14:00 12/19/18 12:17 12/19/18 12:17 General appearance: Present: no acute distress, cachectic, disheveled - EENT Eyes: Present: PERRL, EOM intact ENT: hearing intact, clear oral mucosa, dentition normal - Neck Neck: Present: supple, normal ROM - Respiratory Respiratory effort: normal Respiratory: bilateral: rhonchi (few) - Cardiovascular Rhythm: regular - Extremities Extremities: no ischemia, pulses intact, pulses symmetrical, No edema Peripheral Pulses: within normal limits - Abdominal General gastrointestinal: soft, non-tender, non-distended, normal bowel sounds - Integumentary Integumentary: Present: clear, warm, dry - Psychiatric Psychiatric: appropriate mood/affect, intact judgment & insight, memory intact - Neurologic Neurologic: CNII-XII intact, moves all extremities Results - Labs CBC & Chem 7: 12/15/18 04:26 12/15/18 04:26 Labs: Laboratory Last Values WBC 9.6 K/mm3 (4.5-11.0) 12/15/18 04:26 RBC 5.39 M/mm3 (3.65-5.03) H 12/15/18 04:26 Hgb 15.3 gm/dl (11.8-15.2) H 12/15/18 04:26 Hct 43.5 % (35.5-45.6) 12/15/18 04:26 MCV 81 fl (84-94) L 12/15/18 04:26 MCH 28 pg (28-32) 12/15/18 04:26 MCHC 35 % (32-34) H 12/15/18 04:26 RDW 13.9 % (13.2-15.2) 12/15/18 04:26 Plt Count 218 K/mm3 (140-440) 12/15/18 04:26 Lymph % (Auto) 21.4 % (13.4-35.0) 12/15/18 04:26 [place] % (Auto) 10.4 % (0.0-7.3) H 12/15/18 04:26 Eos % (Auto) 5.2 % (0.0-4.3) H 12/15/18 04:26 Baso % (Auto) 0.3 % (0.0-1.8) 12/15/18 04:26 Lymph # 2.0 K/mm3 (1.2-5.4) 12/15/18 04:26 [place] # 1.0 K/mm3 (0.0-0.8) H 12/15/18 04:26 Eos # 0.5 K/mm3 (0.0-0.4) H 12/15/18 04:26 Baso # 0.0 K/mm3 (0.0-0.1) 12/15/18 04:26 Add Manual Diff Complete 12/10/18 04:56 Total Counted 100 12/10/18 04:56 Seg Neutrophils % 62.7 % (40.0-70.0) 12/15/18 04:26 Seg Neuts % (Manual) 97.0 % (40.0-70.0) H 12/10/18 04:56 0 % 12/10/18 04:56 2.0 % (13.4-35.0) L 12/10/18 04:56 Reactive Lymphs % (Man) 0 % 12/10/18 04:56 1.0 % (0.0-7.3) 12/10/18 04:56 0 % (0.0-4.3) 12/10/18 04:56 0 % (0.0-1.8) 12/10/18 04:56 0 % 12/10/18 04:56 0 % 12/10/18 04:56 0 % 12/10/18 04:56 0 % 12/10/18 04:56 Nucleated RBC % Not Reportable 12/10/18 04:56 Seg Neutrophils # 6.0 K/mm3 (1.8-7.7) 12/15/18 04:26 Seg Neutrophils # Man 11.8 K/mm3 (1.8-7.7) H 12/10/18 04:56 Band Neutrophils # 0.0 K/mm3 12/10/18 04:56 0.2 K/mm3 (1.2-5.4) L 12/10/18 04:56 Abs React Lymphs (Man) 0.0 K/mm3 12/10/18 04:56 0.1 K/mm3 (0.0-0.8) 12/10/18 04:56 0.0 K/mm3 (0.0-0.4) 12/10/18 04:56 0.0 K/mm3 (0.0-0.1) 12/10/18 04:56 0.0 K/mm3 12/10/18 04:56 0.0 K/mm3 12/10/18 04:56 0.0 K/mm3 12/10/18 04:56 Blast Cells # 0.0 K/mm3 12/10/18 04:56 WBC Morphology Not Reportable 12/10/18 04:56 Hypersegmented Neuts Not Reportable 12/10/18 04:56 Hyposegmented Neuts Not Reportable 12/10/18 04:56 Hypogranular Neuts Not Reportable 12/10/18 04:56 Not Reportable 12/10/18 04:56 Not Reportable 12/10/18 04:56 Not Reportable 12/10/18 04:56 Not Reportable 12/10/18 04:56 Not Reportable 12/10/18 04:56 Not Reportable 12/10/18 04:56 Consistent w auto 12/10/18 04:56 Not Reportable 12/10/18 04:56 Plt Clumps, EDTA Not Reportable 12/10/18 04:56 Not Reportable 12/10/18 04:56 Not Reportable 12/10/18 04:56 Not Reportable 12/10/18 04:56 Plt Morphology Comment Not Reportable 12/10/18 04:56 RBC Morphology Normal 12/10/18 04:56 Dimorphic RBCs Not Reportable 12/10/18 04:56 Not Reportable 12/10/18 04:56 Not Reportable 12/10/18 04:56 Not Reportable 12/10/18 04:56 Not Reportable 12/10/18 04:56 Not Reportable 12/10/18 04:56 Not Reportable 12/10/18 04:56 Not Reportable 12/10/18 04:56 Not Reportable 12/10/18 04:56 Not Reportable 12/10/18 04:56 Not Reportable 12/10/18 04:56 Not Reportable 12/10/18 04:56 Not Reportable 12/10/18 04:56 Not Reportable 12/10/18 04:56 Not Reportable 12/10/18 04:56 Not Reportable 12/10/18 04:56 Not Reportable 12/10/18 04:56 Not Reportable 12/10/18 04:56 Not Reportable 12/10/18 04:56 Not Reportable 12/10/18 04:56 Acanthocytes (Spur) Not Reportable 12/10/18 04:56 Rouleaux Not Reportable 12/10/18 04:56 Not Reportable 12/10/18 04:56 Not Reportable 12/10/18 04:56 Not Reportable 12/10/18 04:56 Not Reportable 12/10/18 04:56 Hem Pathologist Commnt No 12/10/18 04:56 POC ABG pH 7.417 (7.35-7.45) 12/16/18 10:20 ABG pH 7.388 pH Units (7.350-7.450) 12/11/18 05:04 POC ABG pCO2 41.2 (35-45) 12/16/18 10:20 ABG pCO2 43.0 mm Hg 12/11/18 05:04 POC ABG pO2 71 (80-105) L 12/16/18 10:20 ABG pO2 71.8 mm Hg (80.0-90.0) L 12/11/18 05:04 POC ABG HCO3 26.6 (22-26 mml/L) 12/16/18 10:20 ABG HCO3 25.3 mmol/L (20.0-26.0) 12/11/18 05:04 POC ABG Total CO2 28 (23-27mmol/L) 12/16/18 10:20 POC ABG O2 Sat 94 12/16/18 10:20 ABG O2 Saturation 95.1 % (95.0-99.0) 12/11/18 05:04 ABG O2 Content 19.8 (0.0-44) 12/11/18 05:04 POC ABG Base Excess 2 ((-2) - (+3)mmol/L) 12/16/18 10:20 ABG Base Excess 0.1 mmol/L (-2.0-3.0) 12/11/18 05:04 ABG Hemoglobin 11.9 gm/dl (14.0-18.0) L 12/11/18 05:04 ABG Carboxyhemoglobin 1.0 % (0.0-5.0) 12/11/18 05:04 ABG Methemoglobin 0.5 % (0.0-1.5) 12/11/18 05:04 93.7 % (95.0-99.0) L 12/11/18 05:04 36 % 12/16/18 10:20 Sodium 135 mmol/L (137-145) L 12/15/18 04:26 Potassium 3.7 mmol/L (3.6-5.0) 12/15/18 04:26 Chloride 96.8 mmol/L (98-107) L 12/15/18 04:26 Carbon Dioxide 27 mmol/L (22-30) 12/15/18 04:26 15 mmol/L 12/15/18 04:26 BUN 15 mg/dL (9-20) 12/15/18 04:26 0.7 mg/dL (0.8-1.5) L 12/15/18 04:26 Estimated GFR > 60 ml/min 12/15/18 04:26 21 % 12/15/18 04:26 Glucose 90 mg/dL (75-100) 12/15/18 04:26 POC Glucose 114 (70-105) H 12/11/18 17:28 Lactic Acid 1.80 mmol/L (0.7-2.0) 12/09/18 23:13 Calcium 8.4 mg/dL (8.4-10.2) 12/15/18 04:26 Phosphorus 4.30 mg/dL (2.5-4.5) 12/15/18 04:26 Magnesium 1.90 mg/dL (1.7-2.3) 12/15/18 04:26 1.00 mg/dL (0.1-1.2) 12/09/18 23:10 AST 21 units/L (5-40) 12/09/18 23:10 ALT 13 units/L (7-56) 12/09/18 23:10 94 units/L (35-129) 12/09/18 23:10 < 0.010 ng/mL (0.00-0.029) 12/13/18 15:25 1.30 mg/dL (0.00-1.30) 12/10/18 12:16 7.6 g/dL (6.3-8.2) 12/09/18 23:10 4.3 g/dL (3.9-5) 12/09/18 23:10 1.3 % 12/09/18 23:10 Yellow (Yellow) 12/09/18 02:19 Clear (Clear) 12/09/18 02:19 7.0 (5.0-7.0) 12/09/18 02:19 Ur Specific [place] 1.028 (1.003-1.030) 12/09/18 02:19 <15 mg/dl mg/dL (Negative) 12/09/18 02:19 Neg mg/dL (Negative) 12/09/18 02:19 Neg mg/dL (Negative) 12/09/18 02:19 Neg (Negative) 12/09/18 02:19 Neg (Negative) 12/09/18 02:19 Neg (Negative) 12/09/18 02:19 4.0 mg/dL (<2.0) 12/09/18 02:19 Ur Leukocyte Esterase Neg (Negative) 12/09/18 02:19 2.0 /HPF (0.0-6.0) 12/09/18 02:19 1.0 /HPF (0.0-6.0) 12/09/18 02:19 Few /HPF 12/09/18 02:19 Presumptive negative 12/09/18 22:45 Presumptive negative 12/09/18 22:45 Ur Barbiturates Screen Presumptive negative 12/09/18 22:45 Ur Phencyclidine Scrn Presumptive negative 12/09/18 22:45 Ur Amphetamines Screen Presumptive negative 12/09/18 22:45 U Benzodiazepines Scrn Presumptive negative 12/09/18 22:45 Presumptive negative 12/09/18 22:45 U Marijuana (THC) Screen Presumptive positive 12/09/18 22:45 Disclamer 12/09/18 22:45 HIV 1&2 Antibody Rapid Non react (Non React) 12/19/18 14:31 Non react (Non React) 12/19/18 14:31 - Imaging and Cardiology Chest x-ray: image reviewed Active Medications - Current Medications Current Medications: Generic Name Dose Route Start Last Admin Trade Name Freq PRN Reason Stop Dose Admin Albuterol 2.5 mg 12/17/18 08:05 Proventil IH Q4HRT PRN Shortness Of Breath Albuterol/Ipratropium 1 ampul 12/17/18 14:00 12/19/18 14:10 Duoneb *Not For Prn Use* IH 1 ampul Q6HRT KELLE Administration Alprazolam 0.5 mg 12/17/18 12:00 12/19/18 09:48 Xanax PO 0.5 mg Q12HR KELLE Administration Arformoterol Tartrate 15 mcg 12/17/18 20:00 12/19/18 07:34 Brovana Nebu IH Not Given Q12HRT KELLE Budesonide 0.5 mg 12/17/18 20:00 12/19/18 07:34 Pulmicort IH Not Given Q12HRT [facility] Enoxaparin Sodium 40 mg 12/13/18 22:00 12/18/18 22:06 Lovenox SUB-Q 40 mg QDAY@2200 KELLE Administration Famotidine 20 mg 12/13/18 14:00 12/19/18 09:48 Pepcid PO 20 mg DAILY KELLE Administration Hydromorphone HCl 0.5 mg 12/15/18 12:18 Dilaudid IV Q8H PRN Pain , Severe (7-10) Ceftriaxone Sodium 2 gm in 100 mls @ 200 mls/hr 12/19/18 15:00 12/19/18 15:16 Rocephin/Ns 2 Gm/100 Ml IV 200 mls/hr Q24HR KELLE Administration Protocol Metronidazole 500 mg in 100 mls @ 100 mls/hr 12/19/18 15:00 12/19/18 15:15 Flagyl 500 Mg/100 Ml IV 100 mls/hr Q8HR [facility] Administration Protocol Ketorolac Tromethamine 15 mg 12/15/18 12:12 12/15/18 12:35 Toradol IV 12/20/18 12:11 15 mg Q8H PRN Administration Pain, Moderate (4-6) Oxycodone/Acetaminophen 1 tab 12/13/18 17:24 12/18/18 09:32 Percocet 5/325 PO 1 tab Q6H PRN Administration Pain, Moderate (4-6) Quetiapine Fumarate 50 mg 12/17/18 22:00 12/18/18 22:06 Seroquel PO 50 mg QHS KELLE Administration Nutrition/Malnutrition Assess - Dietary Evaluation Nutrition/Malnutrition Findings: Nutrition Notes Start: 12/10/18 11:30 Freq: Status: Active Protocol: Document 12/17/18 14:35 RM (Rec: 12/17/18 14:40 RM [id number]) Nutrition Notes Initial or Follow up Reassessment Other Pertinent Diagnosis Asthma, respiratory acidosis, bipolar disorder, ARF, peach allergy Current Diet Regular w/Ensure Enlive 1 daily Labs/Tests Reviewed Pertinent Medications Reviewed Height 5 ft 7 in Weight 61 kg [place] Body Weight (kg) 67.27 BMI 21.0 Subjective/Other Information Pt and pt girlfriend in room at time of visit. Pt stated that his appetite is good and that he eats most of his meals . Noted breakfast at bedside w /none eaten. Pt girlfriend stated that pt did not eat breakfast d/t being on BiPAP this morning. Pt stated that he is not drinking the Ensure Enlive d/t disliking the chocolate flavor. Burn Absent Trauma Absent #1 Nutrition Diagnosis Inadequate oral intake Diagnosis Progress(for reassessment Continues documentation) Is patient on ventilator? No Is Patient Ambulatory and/or Out of Bed No REE-([facility]-confined to bed) 9441.548 Calculation Used for Recommendations [facility] Additional Notes Protein: 49-61g (0.8-1g/kg) Fluids: 1 ml/kcal Nutrition Intervention Change Diet Order: Continue current Add Supplement/Snack (indicate name/kcal Ensure Enlive Vanilla 1 daily /protein ) Provides kCal: 350 Provides Protein (gm) 20 Goal #1 Meet at least 75% of energy and protein needs Anticipated Discharge Needs: Regular diet Follow-Up By: 12/21/18 Additional Comments Follow for PO and ONS intakes
[2018-12-19] MEDS: LOVENOX SUB-Q SCH (23:55)
[2018-12-20 02:18] LABS: Basophils # (Auto) 0.1 K/mm3 (0.0-0.1); Eosinophils # (Auto) 0.6 K/mm3 (0.0-0.4); Eosinophils % (Auto) 7.1 % (0.0-4.3); Hemoglobin 13.7 gm/dl (11.8-15.2); Lymphocytes # (Auto) 2.3 K/mm3 (1.2-5.4); Lymphocytes % (Auto) 28.7 % (13.4-35.0); Mean Corpuscular HGB Conc 34 % (32-34); Mean Corpuscular Volume 82 fl (84-94); Monocytes # (Auto) 0.9 K/mm3 (0.0-0.8); Monocytes % (Auto) 11.4 % (0.0-7.3); Platelet Count 322 K/mm3 (140-440); Red Cell Distribution Width 13.7 % (13.2-15.2)
[2018-12-20] MEDS: FLAGYL 500 MG/100 ML 500 MG/100 ML BAG IV SCH (07:37)
[2018-12-20] MEDS: BROVANA NEBU IH SCH (08:04)
[2018-12-20] MEDS: PULMICORT IH SCH (08:04)
[2018-12-20] MEDS: DUONEB *Not for PRN Use IH SCH ×2 (08:04→17:40)
[2018-12-20] MEDS: ROCEPHIN/NS 2 GM/100 ML 2 GM/100 ML BAG IV SCH (09:21)
[2018-12-20] MEDS: XANAX PO SCH (09:21)
[2018-12-20] MEDS: PEPCID PO SCH (09:22)
--- NOTE | 2018-12-20 10:39 | Progress Note ---
Assessment and Plan Assessment and plan: Patient is a 18 yo man with a history of Asthma, tobacco dependency, marijuana use, bipolar disorder and ADHS who presented with SOB. In the emergency room, he was found to be in respiratory distress; therefore, started on BiPAP. He subsequently became hypoxic requiring Intubation via ETT on 12/10/18 and extubated I believe on 12/11/18. He was found to have bilateral pneumothoraces. He has bilateral chest tubes placed. On 12/14/18 the left chest tube came out and I believe the right chest tube was removed the next day. * CXR: Right lower lobe and probable right middle lobe atelectasis/postobstructive pneumonia. An endobronchial lesion/mucous plug should be considered. Aspiration is possible. * CTA chest: IMPRESSION: 1. Small to moderate bilateral pneumothoraces without mediastinal shift. 2. Extensive pneumomediastinum and subcutaneous emphysema without a clear etiology. * Renal US. IMPRESSION No acute sonographic abnormality of the kidneys. --Acute respiratory failure with hypoxia s/p Intubation done in the ED s/p ablation The patient is severely hypoxemic, requiring high flow oxygen Closely monitor, pulmonary following --Status Asthmaticus with Acute asthma exacerbation with bronchitis Oxygen nebulizers. Supportive care --Bilateral Pneumothoraces-small to moderate s/p jairo chest tube placement, bilateral chest tubes removed Follow-up chest x-ray no acute findings --Extensive Pneumomediastinum and Subcutaneous Emphysema Supportive care --Sinus Bradycardia: Present on admission ?Result of possible tension penumothorax HR ranges in 50s and 60s now. Continue supportive care --Pleuritic chest pain; and management, incentive spirometry Pulmonary following --Pneumonia, treat with levaquin HIV negative --THC use disorder'; advised to quit recreational drug use --Ongoing Tobacco use disorder; smoking cessation advised Nicotine patch if needed --Respiratory acidosis --Possible Aspiration pneumonia; empiric antibiotics Supportive care --h/o ADHD/bipolar/anxiety disorder; Psychiatric evaluation as needed pulmonology has cleared for discharge today History Interval history: Patient was seen and examined. Follow-up on current diagnosis of Asthma exacerbation. No overnight events reported to me. Patient denies any chest pain, shortness breath, nausea/vomiting or severe headaches. Imaging, nursing note, chart, labs and old chart reviewed. Discussed with patient. Hospitalist Physical - Physical exam Narrative exam: Gen: SHABANAWN, NAD, Awake, Alert, Orientated HEENT: NCAT, EOMI, PERRL, OP Clear Neck: supple, no adenopathy, no thyromegaly, no JVD CVS/Heart: RRR, normal S1S2, pulses present bilaterally Chest/Lungs: CTA B, Symmetrical chest expansion, good air entry bilaterally GI/Abdomen: soft, NTND, good bowel sounds, no guarding or rebound /Bladder: no suprapubic tenderness, no CVA or paraspinal tenderness Extermity/Skin: no c/c/e, no obvious rash MSK: FROM x 4 Neuro: CN 2-12 grossly intact, no new focal deficits Psych: calm - Constitutional Vitals: Temp Pulse Resp BP Pulse Ox 98.1 F 98 H 18 113/47 95 12/20/18 04:45 12/20/18 08:10 12/20/18 08:10 12/20/18 04:45 12/20/18 08:33 General appearance: Present: no acute distress, cachectic, disheveled Results - Labs CBC & Chem 7: 12/20/18 01:05 12/15/18 04:26 Labs: Laboratory Last Values WBC 7.9 K/mm3 (4.5-11.0) 12/20/18 01:05 RBC 4.90 M/mm3 (3.65-5.03) 12/20/18 01:05 Hgb 13.7 gm/dl (11.8-15.2) 12/20/18 01:05 Hct 40.0 % (35.5-45.6) 12/20/18 01:05 MCV 82 fl (84-94) L 12/20/18 01:05 MCH 28 pg (28-32) 12/20/18 01:05 MCHC 34 % (32-34) 12/20/18 01:05 RDW 13.7 % (13.2-15.2) 12/20/18 01:05 Plt Count 322 K/mm3 (140-440) 12/20/18 01:05 Lymph % (Auto) 28.7 % (13.4-35.0) 12/20/18 01:05 [place] % (Auto) 11.4 % (0.0-7.3) H 12/20/18 01:05 Eos % (Auto) 7.1 % (0.0-4.3) H 12/20/18 01:05 Baso % (Auto) 1.0 % (0.0-1.8) 12/20/18 01:05 Lymph # 2.3 K/mm3 (1.2-5.4) 12/20/18 01:05 [place] # 0.9 K/mm3 (0.0-0.8) H 12/20/18 01:05 Eos # 0.6 K/mm3 (0.0-0.4) H 12/20/18 01:05 Baso # 0.1 K/mm3 (0.0-0.1) 12/20/18 01:05 Add Manual Diff Complete 12/10/18 04:56 Total Counted 100 12/10/18 04:56 Seg Neutrophils % 51.8 % (40.0-70.0) 12/20/18 01:05 Seg Neuts % (Manual) 97.0 % (40.0-70.0) H 12/10/18 04:56 0 % 12/10/18 04:56 2.0 % (13.4-35.0) L 12/10/18 04:56 Reactive Lymphs % (Man) 0 % 12/10/18 04:56 1.0 % (0.0-7.3) 12/10/18 04:56 0 % (0.0-4.3) 12/10/18 04:56 0 % (0.0-1.8) 12/10/18 04:56 0 % 12/10/18 04:56 0 % 12/10/18 04:56 0 % 12/10/18 04:56 0 % 12/10/18 04:56 Nucleated RBC % Not Reportable 12/10/18 04:56 Seg Neutrophils # 4.1 K/mm3 (1.8-7.7) 12/20/18 01:05 Seg Neutrophils # Man 11.8 K/mm3 (1.8-7.7) H 12/10/18 04:56 Band Neutrophils # 0.0 K/mm3 12/10/18 04:56 0.2 K/mm3 (1.2-5.4) L 12/10/18 04:56 Abs React Lymphs (Man) 0.0 K/mm3 12/10/18 04:56 0.1 K/mm3 (0.0-0.8) 12/10/18 04:56 0.0 K/mm3 (0.0-0.4) 12/10/18 04:56 0.0 K/mm3 (0.0-0.1) 12/10/18 04:56 0.0 K/mm3 12/10/18 04:56 0.0 K/mm3 12/10/18 04:56 0.0 K/mm3 12/10/18 04:56 Blast Cells # 0.0 K/mm3 12/10/18 04:56 WBC Morphology Not Reportable 12/10/18 04:56 Hypersegmented Neuts Not Reportable 12/10/18 04:56 Hyposegmented Neuts Not Reportable 12/10/18 04:56 Hypogranular Neuts Not Reportable 12/10/18 04:56 Not Reportable 12/10/18 04:56 Not Reportable 12/10/18 04:56 Not Reportable 12/10/18 04:56 Not Reportable 12/10/18 04:56 Not Reportable 12/10/18 04:56 Not Reportable 12/10/18 04:56 Consistent w auto 12/10/18 04:56 Not Reportable 12/10/18 04:56 Plt Clumps, EDTA Not Reportable 12/10/18 04:56 Not Reportable 12/10/18 04:56 Not Reportable 12/10/18 04:56 Not Reportable 12/10/18 04:56 Plt Morphology Comment Not Reportable 12/10/18 04:56 RBC Morphology Normal 12/10/18 04:56 Dimorphic RBCs Not Reportable 12/10/18 04:56 Not Reportable 12/10/18 04:56 Not Reportable 12/10/18 04:56 Not Reportable 12/10/18 04:56 Not Reportable 12/10/18 04:56 Not Reportable 12/10/18 04:56 Not Reportable 12/10/18 04:56 Not Reportable 12/10/18 04:56 Not Reportable 12/10/18 04:56 Not Reportable 12/10/18 04:56 Not Reportable 12/10/18 04:56 Not Reportable 12/10/18 04:56 Not Reportable 12/10/18 04:56 Not Reportable 12/10/18 04:56 Not Reportable 12/10/18 04:56 Not Reportable 12/10/18 04:56 Not Reportable 12/10/18 04:56 Not Reportable 12/10/18 04:56 Not Reportable 12/10/18 04:56 Not Reportable 12/10/18 04:56 Acanthocytes (Spur) Not Reportable 12/10/18 04:56 Rouleaux Not Reportable 12/10/18 04:56 Not Reportable 12/10/18 04:56 Not Reportable 12/10/18 04:56 Not Reportable 12/10/18 04:56 Not Reportable 12/10/18 04:56 Hem Pathologist Commnt No 12/10/18 04:56 POC ABG pH 7.417 (7.35-7.45) 12/16/18 10:20 ABG pH 7.388 pH Units (7.350-7.450) 12/11/18 05:04 POC ABG pCO2 41.2 (35-45) 12/16/18 10:20 ABG pCO2 43.0 mm Hg 12/11/18 05:04 POC ABG pO2 71 (80-105) L 12/16/18 10:20 ABG pO2 71.8 mm Hg (80.0-90.0) L 12/11/18 05:04 POC ABG HCO3 26.6 (22-26 mml/L) 12/16/18 10:20 ABG HCO3 25.3 mmol/L (20.0-26.0) 12/11/18 05:04 POC ABG Total CO2 28 (23-27mmol/L) 12/16/18 10:20 POC ABG O2 Sat 94 12/16/18 10:20 ABG O2 Saturation 95.1 % (95.0-99.0) 12/11/18 05:04 ABG O2 Content 19.8 (0.0-44) 12/11/18 05:04 POC ABG Base Excess 2 ((-2) - (+3)mmol/L) 12/16/18 10:20 ABG Base Excess 0.1 mmol/L (-2.0-3.0) 12/11/18 05:04 ABG Hemoglobin 11.9 gm/dl (14.0-18.0) L 12/11/18 05:04 ABG Carboxyhemoglobin 1.0 % (0.0-5.0) 12/11/18 05:04 ABG Methemoglobin 0.5 % (0.0-1.5) 12/11/18 05:04 93.7 % (95.0-99.0) L 12/11/18 05:04 36 % 12/16/18 10:20 Sodium 135 mmol/L (137-145) L 12/15/18 04:26 Potassium 3.7 mmol/L (3.6-5.0) 12/15/18 04:26 Chloride 96.8 mmol/L (98-107) L 12/15/18 04:26 Carbon Dioxide 27 mmol/L (22-30) 12/15/18 04:26 15 mmol/L 12/15/18 04:26 BUN 15 mg/dL (9-20) 12/15/18 04:26 0.7 mg/dL (0.8-1.5) L 12/15/18 04:26 Estimated GFR > 60 ml/min 12/15/18 04:26 21 % 12/15/18 04:26 Glucose 90 mg/dL (75-100) 12/15/18 04:26 POC Glucose 114 (70-105) H 12/11/18 17:28 Lactic Acid 1.80 mmol/L (0.7-2.0) 12/09/18 23:13 Calcium 8.4 mg/dL (8.4-10.2) 12/15/18 04:26 Phosphorus 4.30 mg/dL (2.5-4.5) 12/15/18 04:26 Magnesium 1.90 mg/dL (1.7-2.3) 12/15/18 04:26 1.00 mg/dL (0.1-1.2) 12/09/18 23:10 AST 21 units/L (5-40) 12/09/18 23:10 ALT 13 units/L (7-56) 12/09/18 23:10 94 units/L (35-129) 12/09/18 23:10 < 0.010 ng/mL (0.00-0.029) 12/13/18 15:25 1.30 mg/dL (0.00-1.30) 12/10/18 12:16 7.6 g/dL (6.3-8.2) 12/09/18 23:10 4.3 g/dL (3.9-5) 12/09/18 23:10 1.3 % 12/09/18 23:10 Yellow (Yellow) 12/09/18 02:19 Clear (Clear) 12/09/18 02:19 7.0 (5.0-7.0) 12/09/18 02:19 Ur Specific [place] 1.028 (1.003-1.030) 12/09/18 02:19 <15 mg/dl mg/dL (Negative) 12/09/18 02:19 Neg mg/dL (Negative) 12/09/18 02:19 Neg mg/dL (Negative) 12/09/18 02:19 Neg (Negative) 12/09/18 02:19 Neg (Negative) 12/09/18 02:19 Neg (Negative) 12/09/18 02:19 4.0 mg/dL (<2.0) 12/09/18 02:19 Ur Leukocyte Esterase Neg (Negative) 12/09/18 02:19 2.0 /HPF (0.0-6.0) 12/09/18 02:19 1.0 /HPF (0.0-6.0) 12/09/18 02:19 Few /HPF 12/09/18 02:19 Presumptive negative 12/09/18 22:45 Presumptive negative 12/09/18 22:45 Ur Barbiturates Screen Presumptive negative 12/09/18 22:45 Ur Phencyclidine Scrn Presumptive negative 12/09/18 22:45 Ur Amphetamines Screen Presumptive negative 12/09/18 22:45 U Benzodiazepines Scrn Presumptive negative 12/09/18 22:45 Presumptive negative 12/09/18 22:45 U Marijuana (THC) Screen Presumptive positive 12/09/18 22:45 Disclamer 12/09/18 22:45 HIV 1&2 Antibody Rapid Non react (Non React) 12/19/18 14:31 Non react (Non React) 12/19/18 14:31 Active Medications - Current Medications Current Medications: Generic Name Dose Route Start Last Admin Trade Name Freq PRN Reason Stop Dose Admin Albuterol 2.5 mg 12/17/18 08:05 Proventil IH Q4HRT PRN Shortness Of Breath Albuterol/Ipratropium 1 ampul 12/19/18 20:00 12/20/18 08:04 Duoneb *Not For Prn Use* IH 1 ampul TIDRT KELLE Administration Alprazolam 0.5 mg 12/17/18 12:00 12/20/18 09:21 Xanax PO 0.5 mg Q12HR KELLE Administration Arformoterol Tartrate 15 mcg 12/17/18 20:00 12/20/18 08:04 Brovana Nebu IH 15 mcg Q12HRT KELLE Administration Budesonide 0.5 mg 12/17/18 20:00 12/20/18 08:04 Pulmicort IH 0.5 mg Q12HRT KELLE Administration Enoxaparin Sodium 40 mg 12/13/18 22:00 12/19/18 23:55 Lovenox SUB-Q 40 mg QDAY@2200 KELLE Administration Famotidine 20 mg 12/13/18 14:00 12/20/18 09:22 Pepcid PO 20 mg DAILY KELLE Administration Hydromorphone HCl 0.5 mg 12/15/18 12:18 Dilaudid IV Q8H PRN Pain , Severe (7-10) Ceftriaxone Sodium 2 gm in 100 mls @ 200 mls/hr 12/19/18 15:00 12/20/18 09:21 Rocephin/Ns 2 Gm/100 Ml IV 200 mls/hr Q24HR KELLE Administration Protocol Metronidazole 500 mg in 100 mls @ 100 mls/hr 12/19/18 15:00 12/20/18 07:37 Flagyl 500 Mg/100 Ml IV 100 mls/hr Q8HR KELLE Administration Protocol Ketorolac Tromethamine 15 mg 12/15/18 12:12 12/15/18 12:35 Toradol IV 12/20/18 12:11 15 mg Q8H PRN Administration Pain, Moderate (4-6) Oxycodone/Acetaminophen 1 tab 12/13/18 17:24 12/18/18 09:32 Percocet 5/325 PO 1 tab Q6H PRN Administration Pain, Moderate (4-6) Quetiapine Fumarate 50 mg 12/17/18 22:00 12/19/18 23:56 Seroquel PO 50 mg QHS KELLE Administration Nutrition/Malnutrition Assess - Dietary Evaluation Nutrition/Malnutrition Findings: Nutrition Notes Start: 12/10/18 11:30 Freq: Status: Active Protocol: Document 12/17/18 14:35 RM (Rec: 12/17/18 14:40 RM [id number]) Nutrition Notes Initial or Follow up Reassessment Other Pertinent Diagnosis Asthma, respiratory acidosis, bipolar disorder, ARF, peach allergy Current Diet Regular w/Ensure Enlive 1 daily Labs/Tests Reviewed Pertinent Medications Reviewed Height 5 ft 7 in Weight 61 kg [place] Body Weight (kg) 67.27 BMI 21.0 Subjective/Other Information Pt and pt girlfriend in room at time of visit. Pt stated that his appetite is good and that he eats most of his meals . Noted breakfast at bedside w /none eaten. Pt girlfriend stated that pt did not eat breakfast d/t being on BiPAP this morning. Pt stated that he is not drinking the Ensure Enlive d/t disliking the chocolate flavor. Burn Absent Trauma Absent #1 Nutrition Diagnosis Inadequate oral intake Diagnosis Progress(for reassessment Continues documentation) Is patient on ventilator? No Is Patient Ambulatory and/or Out of Bed No REE-([facility]-confined to bed) [phone] Calculation Used for Recommendations [facility] Additional Notes Protein: 49-61g (0.8-1g/kg) Fluids: 1 ml/kcal Nutrition Intervention Change Diet Order: Continue current Add Supplement/Snack (indicate name/kcal Ensure Enlive Vanilla 1 daily /protein ) Provides kCal: 350 Provides Protein (gm) 20 Goal #1 Meet at least 75% of energy and protein needs Anticipated Discharge Needs: Regular diet Follow-Up By: 12/21/18 Additional Comments Follow for PO and ONS intakes
--- NOTE | 2018-12-20 10:48 | Discharge Summary ---
Providers - Providers Date of Admission: 12/10/18 01:34 Date of discharge: 12/20/18 Attending physician: CHRISTOPHER PATEL 12/10/18 01:34 Consult to Physician [CONS] Routine Comment: Consulting Provider: RODRI FITZGERALD Physician Instructions: Reason For Exam: cc 12/12/18 16:13 Consult to Physician [CONS] Urgent Comment: Consulting Provider: CINDI MOYA Physician Instructions: please assist with chest tube placement. Thanks Reason For Exam: Bilateral Pneumothoraces with pneumomediastinum 12/17/18 11:42 Consult to Physician [CONS] Routine Comment: Consulting Provider: WAYNE PATEL Physician Instructions: Reason For Exam: Gen Anxiety 12/18/18 16:54 Consult to Physician [CONS] Routine Comment: Consulting Provider: CODY LEAL Physician Instructions: Antibitoic recommendations Reason For Exam: New right LL infiltrate Primary care physician: ROD CUP FILLER Hospitalization Condition: Stable Hospital course: Patient is a 18 yo man with a history of Asthma, tobacco dependency, marijuana use, bipolar disorder and ADHS who presented with SOB. In the emergency room, he was found to be in respiratory distress; therefore, started on BiPAP. He subsequently became hypoxic requiring Intubation via ETT on 12/10/18 and extubated I believe on 12/11/18. He was found to have bilateral pneumothoraces. He has bilateral chest tubes placed. On 12/14/18 the left chest tube came out and I believe the right chest tube was removed the next day. * CXR: Right lower lobe and probable right middle lobe at electasis/postobstructive pneumonia. An endobronchial lesion/mucous plug should be considered. Aspiration is possible. * CTA chest: IMPRESSION: 1. Small to moderate bilateral pneumothoraces without mediastinal shift. 2. Extensive pneumomediastinum and subcutaneous emphysema without a clear etiology. * Renal US. IMPRESSION No acute sonographic abnormality of the kidneys. Discharge Diagnoses: --Acute respiratory failure with hypoxia s/p Intubation done in the ED s/p ablation The patient is severely hypoxemic, requiring high flow oxygen Closely monitor, pulmonary following --Status Asthmaticus with Acute asthma exacerbation with bronchitis Oxygen nebulizers. Supportive care --Bilateral Pneumothoraces-small to moderate s/p jairo chest tube placement, bilateral chest tubes removed Follow-up chest x-ray no acute findings --Extensive Pneumomediastinum and Subcutaneous Emphysema Supportive care --Sinus Bradycardia: Present on admission ?Result of possible tension penumothorax HR ranges in 50s and 60s now. Continue supportive care --Pleuritic chest pain; and management, incentive spirometry Pulmonary following --THC use disorder'; advised to quit recreational drug use --Ongoing Tobacco use disorder; smoking cessation advised Nicotine patch if needed --Respiratory acidosis --Possible Aspiration pneumonia; empiric antibiotics Supportive care --h/o ADHD/bipolar/anxiety disorder; Psychiatric evaluation as needed Disposition: DC-01 TO HOME OR SELFCARE Time spent for discharge: 38 minutes Core Measure Documentation - Palliative Care Palliative Care/ Comfort Measures: Not Applicable - Core Measures Any of the following diagnoses?: none - VTE Discharge Requirements Deep Vein Thrombosis/Pulmonary Embolism Present on Admission: No Has pt received <5 days of overlap therapy or INR<2.0: No Anticoagulant overlap therapy prescribed at discharge: No Contraindication No Overlap Therapy order at DC: Not Indicated Exam - Physical Exam Narrative exam: Gen: WDWN, NAD, Awake, Alert, Orientated HEENT: NCAT, EOMI, PERRL, OP Clear Neck: supple, no adenopathy, no thyromegaly, no JVD CVS/Heart: RRR, normal S1S2, pulses present bilaterally Chest/Lungs: CTA B, Symmetrical chest expansion, good air entry bilaterally GI/Abdomen: soft, NTND, good bowel sounds, no guarding or rebound /Bladder: no suprapubic tenderness, no CVA or paraspinal tenderness Extermity/Skin: no c/c/e, no obvious rash MSK: FROM x 4 Neuro: CN 2-12 grossly intact, no new focal deficits Psych: calm - Constitutional Vitals: Temp Pulse Resp BP Pulse Ox 98.1 F 98 H 18 113/47 95 12/20/18 04:45 12/20/18 08:10 12/20/18 08:10 12/20/18 04:45 12/20/18 08:33 Plan Activity: other (no strenous activity including work unless cleared by Pulmonology) Diet: regular Follow up with: PRIMARY MD KADEEM [Primary Care Provider] - 3-5 Days JENSEN PATEL MD [Staff Physician] - 7 Days Prescriptions: QUEtiapine [SEROquel] 2 tab PO QHS #60 tablet Nebulizer [Airs Disposable Nebulizer] 1 each MC PRN #30 each Ipratropium/Albuterol Sulfate [DUONEB *Not for PRN Use*] 1 ampul IH BID #30 ampul.neb levoFLOXacin [Levaquin] 750 mg PO QDAY #6 tablet Famotidine [Pepcid] 20 mg PO DAILY #30 tablet oxyCODONE /ACETAMINOPHEN [Percocet 5/325 mg] 1 tab PO Q6H PRN #15 tablet PRN Reason: Pain , Severe (7-10) ALBUTEROL Inhaler (OR & NICU) [ProAir HFA Inhaler] 2 puff IH QID PRN #1 inhalation PRN Reason: Shortness Of Breath ALBUTEROL NEB's [Proventil 0.083% NEBS] 2.5 mg IH TID PRN #1 box PRN Reason: Wheezing Montelukast [Singulair] 10 mg PO QPM #30 tablet Budesonide/Formoterol Fumarate [Symbicort 80-4.5 Mcg Inhaler] 2 puff IH BID #1 unit ALPRAZolam [Xanax TAB] 0.5 mg PO Q12HR PRN #30 tablet PRN Reason: Anxiety
[2018-12-20 12:12] VITALS: BP 120/67
--- NOTE | 2018-12-20 13:06 | Progress Note ---
Assessment and Plan Cultures: 12/09/18: Blood: no growth 12/10/18 Tracheal aspirate: no growth Assessment: 18 year old male with a past medical history of asthma, biopolar and ADHD that presents to the ED on 12/09/18 with complaints of shortness of breath X 2 days and productive cough of green phlegm. In the ED he was found to be in respiratory distress, became hypoxic and was intubated. Admitted with: 1. New Right Lower Lobe Infiltrate with possible aspiration PNA: Now extubated. Bilateral chest tubes placed 12/12/18. Resolution of pneumothoraces 12/14/18.. s/p removal of bilateral chest tubes. Lungs well expanded. Rpt CXR 12/17/18 show redevelopment of RLL infiltrate. Minimal airspace disease remains in the left lower lung. Currently being treated with levofloxacin. HIV negative. 2. Leukocytosis: Now resolved. No fevers. Blood cultures show no growth. 3. Acute Respiratory failure s/p extubation: now on room air 4.. Status Ashmaticus with acute asthma excacerbation with bronchitis 5. THC abuse 6. Tobacco abuse 7. Bipolar Disorder Recommendations: -continue Ceftriaxone2 gm IV every 24 hours and Flagyl 500 mg IV every 8 hours -ok to discharge from ID stand point on augmentin 875 mg PO q12h total 7 days Elly Kevin MD [facility] Subjective Date of service: 12/20/18 Principal diagnosis: Ac hypoxemic resp failure; Status Asthmaticus; bilateral pneumothoraces Interval history: Feels better no fever no chest pain Objective - Exam Narrative Exam: Constitutional: Alert, cooperative. No acute distress Head, Ears, Nose: Normocephalic, atraumatic. External ears, nose normal Eyes: Conjunctivae/corneas clear. No icterus. No ptosis. Neck: Supple, no meningeal signs Oral: dentition fair. No thrush Cardiovascular: S1, S2 normal. Respiratory: Good air entry, clear to auscultation bilaterally GI: Soft, non-tender; bowel sounds normal. No peritoneal signs Musculoskeletal: No pedal edema, no cyanosis. Skin: No rash or abscess. Hem/Lymphatic: No palpable cervical or supraclavicular nodes. No lymphangitis Psych: Mood ok. Affect normal Neurological: Awake, alert, oriented. - Constitutional Vitals: Vital Signs Temp Pulse Resp BP Pulse Ox 98.3 F 70 12 120/67 99 12/20/18 11:37 12/20/18 11:37 12/20/18 11:37 12/20/18 11:37 12/20/18 11:37 Temperature -Last 24 Hours Temperature 98.3 F Temperature 98.1 F Temperature 97.8 F Temperature 98.2 F - Labs CBC & Chem 7: 12/20/18 01:05 12/15/18 04:26 Labs: Abnormal lab results 12/20/18 Range/Units 01:05 MCV 82 L (84-94) fl [place] % (Auto) 11.4 H (0.0-7.3) % Eos % (Auto) 7.1 H (0.0-4.3) % [place] # 0.9 H (0.0-0.8) K/mm3 Eos # 0.6 H (0.0-0.4) K/mm3
== END 2018-12-20 14:31 | disposition home or self-care (01) | DRG 208 ==
LOC: ED 22:30 → CC1 12-10 01:34 → UNDOADMIN 12-10 02:55 → CC1 12-10 02:55 → 4A 12-12 13:25 → CC1 12-12 13:25 → 3A 12-12 13:34 → UNDOADMIN 12-12 13:34 → CC1 12-12 15:46 → 3A 12-12 15:46 → IMCU 12-13 21:39 → 3A 12-18 16:30
PROVIDERS: ADMIT Internal Medicine; ATTEND Internal Medicine
PROC: 4A033R1 Measurement of Arterial Saturation, Peripheral, Percutaneous Approach (ICD-10-PCS; 2018-12-09)
PROC: 5A09357 Assistance with Respiratory Ventilation, Less than 24 Consecutive Hours, Continuous Positive Airway Pressure (ICD-10-PCS; 2018-12-09)
PROC: 0BH17EZ Insertion of Endotracheal Airway into Trachea, Via Natural or Artificial Opening (ICD-10-PCS; 2018-12-09)
PROC: 5A1945Z Respiratory Ventilation, 24-96 Consecutive Hours (ICD-10-PCS; principal; 2018-12-10)
PROC: 5A09357 Assistance with Respiratory Ventilation, Less than 24 Consecutive Hours, Continuous Positive Airway Pressure (ICD-10-PCS; 2018-12-10)
PROC: 0BP1XDZ Removal of Intraluminal Device from Trachea, External Approach (ICD-10-PCS; 2018-12-11)
PROC: 0W9B00Z Drainage of Left Pleural Cavity with Drainage Device, Open Approach (ICD-10-PCS; 2018-12-12)
PROC: 0W9900Z Drainage of Right Pleural Cavity with Drainage Device, Open Approach (ICD-10-PCS; 2018-12-12)
DX: J96.01 Acute respiratory failure with hypoxia (principal); J69.0 Pneumonitis due to inhalation of food and vomit; E87.2 Acidosis; F90.9 Attention-deficit hyperactivity disorder, unspecified type; F31.9 Bipolar disorder, unspecified; J93.9 Pneumothorax, unspecified; J45.42 Moderate persistent asthma with status asthmaticus; F12.20 Cannabis dependence, uncomplicated; T79.7XXA Traumatic subcutaneous emphysema, initial encounter; R07.81 Pleurodynia; J90 Pleural effusion, not elsewhere classified; J98.11 Atelectasis; F41.1 Generalized anxiety disorder; Z91.048 Other nonmedicinal substance allergy status; Z87.891 Personal history of nicotine dependence
CPT/HCPCS: 36415; 36600; 71045; 71250; 74018; 76770; 80048; 80053; 80307; 81001; 82103; 82140; 82803; 82962; 83735; 84100; 84484; 85007; 85025; 85027; 86140; 87040; 87070; 87205; 87806; 93005; 93010; 93306; 94002; 94003; 94640; 94644; 94660; 94760; G0378; J0330; J0692; J0696; J1170; J1650; J1885; J1956; J2270; J2543; J2704; J2930; J3010; J3370; J7030; J7040